=== PATIENT | male | born 1960 | race Caucasian/White ===

== ENCOUNTER 2019-08-10 09:25 | Inpatient (IN) | payer BC ==
[~2019-08-10] VITALS: Ht 167.4 cm; Wt 92.1 kg
[~2019-08-10 09:25] MED LIST: ASP81TEC PO; HYDR1TAB PO; NAPR-243 PO; PNT40TEC PO
[2019-08-10] MEDS ORDERED: CALCIUM CARBONATE 500 MG (TUMS) TAB.CHEW PO PRN (11:00)
[2019-08-10] MEDS ORDERED: ENOXAPARIN 40 MG/0.4 ML (LOVENOX) SYR SC SCH (11:00)
[2019-08-10] MEDS ORDERED: guaiFENesin/CODEINE (ROBITUSSIN AC) 10ML UDC PO PRN (11:00)
[2019-08-10] MEDS ORDERED: ONDANSETRON 4 MG (ZOFRAN) ORAL DISSOLVE TAB PO PRN (11:00)
[2019-08-10] MEDS ORDERED: LOPERAMIDE 2 MG (IMODIUM) TABLET PO PRN (11:00)
[2019-08-10] MEDS ORDERED: ALPRAZolam 0.25 MG (XANAX) TAB PO PRN (11:00)
[2019-08-10] MEDS ORDERED: DOCUSATE SODIUM 100 MG (COLACE) CAP PO PRN (11:00)
[2019-08-10] MEDS ORDERED: FLEET ENEMA ADULT 1 EA BTL PR PRN (11:00)
[2019-08-10] MEDS ORDERED: MELATONIN 3 MG TABLET PO PRN (11:00)
[2019-08-10] MEDS ORDERED: diphenhydrAMINE 25 MG TAB (BENADRYL) PO PRN (11:00)
[2019-08-10] MEDS ORDERED: LACTULOSE SYRUP 10GM/15ML (ENULOSE) 30ML UDC PO PRN (11:00)
[2019-08-10] MEDS ORDERED: polyethylene glycoL POWDER 17 GM (MIRALAX) PACK PO SCH (21:00)
[2019-08-10] MEDS ORDERED: SENNA W/DOCUSATE (SENOKOT S) TABLET PO SCH (21:00)
[2019-08-10] MEDS ORDERED: DOCUSATE SODIUM 100 MG (COLACE) CAP PO SCH (21:00)
[2019-08-13] MEDS ORDERED: ASPI-999 PO (15:54)
[2019-08-13] MEDS ORDERED: OXYC1TAB87 PO (15:54)
[2019-08-13] MEDS ORDERED: GABA-488 PO (15:54)
[2019-08-13] MEDS ORDERED: BACL10TA PO (15:54)
--- NOTE | 2019-08-13 15:55 | NUR ---
ENTERED THE MED REC USING THE DISCHARGE ORDERS FROM [facility]. ON THE DISCHARGE ORDERS IT JUST SHOWED NEW MEDS HE HAD STARTED AT [facility]- IT DIDNT MENTION ANY MEDS THEY WANTED HIM TO CONTINUE AFTER DISCHARGE (MAINTENANCE MEDS ETC) SINCE THE PT WAS NOT HERE YET I CALLED THE PATIENT (MARIUSZ) AND SHE LET ME KNOW HE DIDNT TAKE ANY MAINTENANCE MEDICATION TO HER KNOWLEDGE. AFTER THE MEDS ARE CONTINUED I WILL SPEAK WITH THE PT AND UPDATE THE MED REC AND NOTES NEEDED Addendum: 08/14/19 at 1132 by OSCAR VILLAVICENCIO CPhT SPOKE WITH PT AND WENT THRU THE EXT MED HISTORY TO COMPLETE THE MED REC ALL MEDICATIONS THAT WERE PREVIOUSLY LISTED ON THE MED REC ARE NEW FROM [facility] AND THEY ALL HAVE BEEN REMOVED FROM THE MED REC: PERCOCET 5/325, GABAPENTIN 300MG, BACLOFEN 10MG & ASPIRIN 81MG. THE FOLLOWS MEDS HAVE BEEN ADDED TO THE MED REC DUE TO THE PT TAKING THEM BEFORE HIS [facility] STAY: MELOXICAM 15MG- 1 TAB DAILY PRN ALEVE 220MG- 1 TAB Q 8 H PRN PROTONIX 40MG IS SHOWN ON THE EXT MED HISTORY BUT THE PT SAYS HE QUIT TAKING
--- NOTE | 2019-08-13 16:15 | NUR ---
EMELIA HARRIS admitted to room 228-1, with an admitting diagnosis of REHAB FOR RIGHT TOTAL KNEE REPLACEMENT , on 08/13/19 from [facility] via [facility]/C [facility] CAR, accompanied by STAFF.EMELIA HARRIS introduced to surroundings, call light, bed controls, phone, TV, temperature control, lights, meal times, smoking policy, visitor policy, side rail policy, bathrooms and showers. Patient Rights given to patient in the handbook.EMELIA HARRIS verbalizes understanding that [facility] is not responsible for the loss or damage to any personal effects or valuables that are kept in the patients posession during their hospitalization. The following Patient Care Plans were discussed with the PT: Discharge Planning, PAIN CONTROL,TESTS AND PROCEDURES, and PT/OT THERAPY. EMELIA HARRIS verbalizes understanding of Interdisciplinary Patient Education. Patient and/or family were informed about the Rapid Response Team and its purpose.
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
[2019-08-13 17:14] VITALS: BP 117/76
[2019-08-13 17:15] VITALS: BP 117/76
[2019-08-13] MEDS: BACLOFEN 10 MG (LIORESAL) TAB PO SCH (18:41)
[2019-08-13] MEDS: ENOXAPARIN 40 MG/0.4 ML (LOVENOX) SYR SC SCH (18:41)
[2019-08-13] MEDS: ASPIRIN 81 MG CHEW (CHILDREN'S ASA) PO SCH (21:23)
[2019-08-13] MEDS: GABAPENTIN 300 MG (NEURONTIN) CAP PO SCH (21:23)
[2019-08-13] MEDS: SENNA W/DOCUSATE (SENOKOT S) TABLET PO SCH (21:23)
[2019-08-13] MEDS: oxyCODONE/APAP 5/325MG (PERCOCET 5) TABLET PO PRN (21:24)
[2019-08-13] MEDS: polyethylene glycoL POWDER 17 GM (MIRALAX) PACK PO SCH (23:30)
[2019-08-14 05:28] LABS: BASOPHILS % (AUTO) 0 % (0-10); EOSINOPHILS # (AUTO) 0.1 10^3/uL (0.0-0.3); EOSINOPHILS % (AUTO) 1 % (0-10); HEMATOCRIT 33 % (40-54); LYMPHOCYTES # (AUTO) 1.3 X 10^3 (1.0-4.0); LYMPHOCYTES % (AUTO) 14 % (12-44); MEAN CORPUSCULAR HEMOGLOBIN 33 PG (25-34); MEAN CORPUSCULAR HGB CONC 33 G/DL (32-36); MEAN CORPUSCULAR VOLUME 99 FL (80-99); MEAN PLATELET VOLUME 9.8 FL (7.4-10.4); MONOCYTES # (AUTO) 1.1 X 10^3 (0.0-1.0); MONOCYTES % (AUTO) 12 % (0-12); NEUTROPHILS # (AUTO) 6.9 X 10^3 (1.8-7.8); NEUTROPHILS % (AUTO) 74 % (42-75); PLATELET COUNT 282 10^3/uL (130-400); RED CELL DISTRIBUTION WIDTH 12.5 % (10.0-14.5); WHITE BLOOD COUNT 9.3 10^3/uL (4.3-11.0)
[2019-08-14 05:41] LABS: ALBUMIN 3.3 GM/DL (3.2-4.5); CHLORIDE 100 MMOL/L (98-107); POTASSIUM 4.5 MMOL/L (3.6-5.0); SODIUM 135 MMOL/L (135-145)
[2019-08-14 05:42] LABS: CALCIUM 9.1 MG/DL (8.5-10.1)
[2019-08-14 05:43] LABS: GLUCOSE 97 MG/DL (70-105); TOTAL PROTEIN 6.6 GM/DL (6.4-8.2)
[2019-08-14 05:44] LABS: CARBON DIOXIDE 24 MMOL/L (21-32)
[2019-08-14 05:45] LABS: BILIRUBIN,TOTAL 0.5 MG/DL (0.1-1.0)
[2019-08-14 05:47] LABS: ALKALINE PHOSPHATASE 43 U/L (40-136); CREATININE SERUM 0.76 MG/DL (0.60-1.30); GFR ESTIMATED > 60
[2019-08-14 05:48] LABS: BUN/CREATININE RATIO 21
[2019-08-14 05:50] LABS: ALANINE AMINOTRANSFERASE 33 U/L (0-55)
[2019-08-14 06:00] VITALS: BP 110/72
[2019-08-14 08:36] VITALS: BP 119/75
[2019-08-14] MEDS: BACLOFEN 10 MG (LIORESAL) TAB PO SCH ×3 (08:40→21:43)
[2019-08-14] MEDS: ASPIRIN 81 MG CHEW (CHILDREN'S ASA) PO SCH ×2 (08:40→21:43)
[2019-08-14] MEDS: oxyCODONE/APAP 5/325MG (PERCOCET 5) TABLET PO PRN ×3 (08:41→21:44)
[2019-08-14] MEDS: polyethylene glycoL POWDER 17 GM (MIRALAX) PACK PO SCH ×2 (08:42→21:44)
[2019-08-14] MEDS: SENNA W/DOCUSATE (SENOKOT S) TABLET PO SCH ×3 (08:42→21:43)
--- NOTE | 2019-08-14 10:27 | NUR ---
"RD ASSESSMENT PMHx: GERD; chronic constipation; s/p R TKA PT INTERACTION: Pt was awake and pleasant during nutrition assessment. Pt states current appetite is okay, but it was a little worse prior to admit. Note PO intake of 100% x1meal, per chart review. Pt states following a regular diet at home, and has no issues with chewing/swallowing food. Pt states no recent issues with nausea or vomiting. Pt states having chronic issues with constipation, and that his last BM was 4/6. Note pt currently on bowel regimen of Senna BID; and Miralax BID, per chart review. Pt states no recent wt changes. Note unable to determine recent wt hx, per chart review. ABNORMAL NUTRITION-RELATED LAB VALUES Labs WNL at this time Est. kcal needs: 9984-7026 kcal | 20-25 kcal/kg Est. Pro needs: 93-111 g Pro | 1.0-1.2 g Pro/kg PES STATEMENT: Given current PO intake, no nutrition diagnosis at this time (NO-1.1) INTERVENTION: Continue with current diet order of Regular diet. Will continue to follow and reassess as pt needs, intake, and status change. MONITOR/EVALUATE: PO Intake; Plan of Care; Hydration Status; Weight Status; Lab Values Carol Stack, MS, RD, LD"
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
--- NOTE | 2019-08-14 11:28 | PM&R Progress Note ---
Subjective HPI/CC On Admission Date Seen by Provider: Aug 14, 2019 Time Seen by Provider: 10:30 Subjective/Events-last exam Patient doing better since bed has been changed out Labs reviewed and all stable DVT PPX with ASA and Lovenox since h/o DVT 1989 IT will set up his computer to help him keep up with work Percocet and Baclofen working very well for him Suppository available if needed since he does use those at home also BM 08/13/19 before transported to [facility] Checked meds and labs Reviewed therapy notes Conferred with minister helper of Systems General: Fatigue Musculoskeletal: leg pain Objective Exam Vital Signs Vital Signs Date Time Temp Pulse Resp B/P (MAP) Pulse Ox O2 Delivery O2 Flow Rate FiO2 08/14/19 16:53 36.8 79 16 106/71 (83) 96 Room Air Capillary Refill : Less Than 3 Seconds General Appearance: No Apparent Distress, WD/WN HEENT: PERRL/EOMI, Normal ENT Inspection, Pharynx Normal Neck: Full Range of Motion, Normal Inspection, Non Tender, Supple, Carotid Bruit Respiratory: Chest Non Tender, Lungs Clear, Normal Breath Sounds, No Accessory Muscle Use, No Respiratory Distress Cardiovascular: Regular Rate, Rhythm, No Edema, No Gallop, No JVD, No Murmur, Normal Peripheral Pulses Gastrointestinal: Normal Bowel Sounds, No Organomegaly, No Pulsatile Mass, Non Tender, Soft Back: Normal Inspection, No CVA Tenderness, No Vertebral Tenderness, Decreased Range of Motion Extremity: Normal Capillary Refill, Normal Inspection, Normal Range of Motion (except right leg), Non Tender, No Calf Tenderness, No Pedal Edema Neurologic/Psychiatric: Alert, Oriented x3, Normal Mood/Affect, Motor Weakness (all extremities 4/5, muscle wasting upper extremities) Skin: Normal Color, Warm/Dry Lymphatic: No Adenopathy Results/Procedures Lab Laboratory Tests 08/14/19 05:20 Patient resulted labs reviewed. FIM Transfers Therapy Code Descriptions/Definitions Functional [place] Measure: 0=Not Assessed/NA 4=Minimal Assistance 1=Total Assistance 5=Supervision or Setup 2=Maximal Assistance 6=Modified [place] 3=Moderate Assistance 7=Complete IndependenceSCALE: Activities may be completed with or without assistive devices. 3-Tbiwkxxbbq-hgirapm completes the activity by him/herself with no assistance from a helper. 5-Set-up or Clean-up Assistance-helper sets up or cleans up; patient completes activity. [place] assists only prior to or following the activity. 4-Supervision or Touching Assistance-helper provides verbal cues and/or touching/steadying and/or contact guard assistance as patient completes activity. Assistance may be provided throughout the activity or intermittently. 3-Partial/Moderate Assistance-helper does LESS THAN HALF the effort. [place] lifts, holds or supports trunk or limbs, but provides less than half the effort. 2-Substantial/Maximal Assistance-helper does MORE THAN HALF the effort. [place] lifts or holds trunk or limbs and provides more than half the effort. 0-Feirrnmmc-andvez does ALL the effort. Patient does none of the effort to compl ete the activity. Or, the assistance of 2 or more helpers is required for the patient to complete the activity. If activity was not attempted, code reason: 7-Patient Refused. 9-Not Applicable-not attempted and the patient did not perform the activity before the current illness, exacerbation or injury. 10-Not Attempted due to Environmental Limitations-(lack of equipment, weather restraints, etc.). 88-Not Attempted due to Medical Conditions or Safety Concerns. Assessment/Plan Assessment and Plan Assess & Plan/Chief Complaint Assessment: s/p right total knee replacement POD # 7 h/o DVT Spinal cord injury hx C4-C6 Muscle spasms severe and incapacitating acute on chronic Neurogenic bladder Colon atony GERD Acute hyponatremia DVT PPx with ASA and Lovenox Plan: Lovenox DC Fluid restriction sodium 135 Pain control IRF protocol Bowel and bladder management (1) Status post right knee replacement (2) History of spinal cord injury (3) Muscle spasm (4) Neurogenic bladder (5) Colon atonic (6) Muscle wasting (7) Hyponatremia (8) History of DVT (deep vein thrombosis) (9) DVT prophylaxis (10) Chronic GERD HILARIO FAIRBANKS DO Aug 14, 2019 11:28
[2019-08-14] MEDS ORDERED: MELO15TA39 PO (11:29)
[2019-08-14] MEDS ORDERED: NAPR220C11 PO (11:29)
--- NOTE | 2019-08-14 11:34 | Physical Therapy Evaluation ---
PT Evaluation-General Medical Diagnosis Admission Date Aug 13, 2019 at 16:51 Medical Diagnosis: Right knee replacement Onset Date: Aug 07, 2019 Therapy Diagnosis Therapy Diagnosis: impaired mobility, strength, endurance, balance, ROM Precautions Precautions/Isolations: Fall Prevention, Standard Precautions, Pressure Ulcer Weight Bear Status Right Lower Extremity: Right Weight Bearing/Tolerated Referral Physician: Shannan Hogue DO Reason for Referral: Evaluation/Treatment Medical History Pertinent Medical History: Back Injury Additional Medical History C4-5 fx with fusion, spinal cord injury, spasms, neurogenic bladder, DVT Reviewed History: Yes Social History Home: Single Level Current Living Status: Spouse (grown children at home) Entry Into Home: Stairs With Railing PT Steps Into Home: 3 Prior Prior Level of Function SCALE: Activities may be completed with or without assistive devices. 3-Nseposfiuh-lkvdejc completes the activity by him/herself with no assistance from a helper. 5-Set-up or Clean-up Assistance-helper sets up or cleans up; patient completes activity. Vandiver assists only prior to or following the activity. 4-Supervision or Touching Assistance-helper provides verbal cues and/or touching/steadying and/or contact guard assistance as patient completes activity. Assistance may be provided throughout the activity or intermittently. 3-Partial/Moderate Assistance-helper does LESS THAN HALF the effort. Vandiver lifts, holds or supports trunk or limbs, but provides less than half the effort. 2-Substantial/Maximal Assistance-helper does MORE THAN HALF the effort. [place] lifts or holds trunk or limbs and provides more than half the effort. 6-Pmhrgothm-fubxhm does ALL the effort. Patient does none of the effort to complete the activity. Or, the assistance of 2 or more helpers is required for the patient to complete the activity. If activity was not attempted, code reason: 7-Patient Refused. 9-Not Applicable-not attempted and the patient did not perform the activity before the current illness, exacerbation or injury. 10-Not Attempted due to Environmental Limitations-(lack of equipment, weather restraints, etc.). 88-Not Attempted due to Medical Conditions or Safety Concerns. Bed Mobility: 6 Transfers (B,C,W/C): 6 Gait: 6 Indoor Mobility (Ambulation): Independent Patient states he was using a SPC previously. PT Evaluation-Current Subjective Patient in bed pre tx, agrees to PT, has 5/10 pain in right knee and hamstring. Patient has been having significant painful hamstring spasms. Pt/Family Goals to be independent at home Objective Patient Orientation: Person, Place, Situation right knee immobilizer for comfort and to control hamstring spasms. ROM/Strength ROM Lower Extremities right knee flexion 80 degrees, extension +20 degrees Sensory Vision: Wears Glasses Hearing: Functional Sensation Right Lower Extremit: Intact Sensation Left Lower Extremity: Intact Transfers Roll Left to Right (QC): 3 Sit to Lying (QC): 3 Lying to Sitting/Side of Bed(Q: 3 Sit to Stand (QC): 2 Chair/Azf-xi-Iwlvr Xfer(QC): 4 Toilet Transfer (QC): 2 Car Transfer (QC): 2 Patient performs bed mobility with min assist, supine to sit with mod assist, sit to supine with min assist, sit to stand max assist, transfers CGA, car transfer max assist. Patient can perform sit to stand with CGA or min assist from a significantly elevated surface, but cannot help much from lower surfaces. Gait Does the Patient Walk?: Yes Mode of Locomotion: Walk Anticipated Mode of Locomotion: Walk Walk 10 feet (QC): 4 Walk 50 ft with 2 Turns(QC): 88 Walk 150 ft (QC): 88 Walking 10ft/uneven surface-QC: 88 Distance: 30' Gait Assistive Device: FWW Comments/Gait Description Patient ambulated 30' with a rolling walker with CGA. He slides both feet across the floor, has right foot drop, bilateral flexed knees, very narrow MIGUELITO. Wheelchair Training Does the Pt Use a Wheelchair?: Yes Distance: 100' Wheel 50 ft with 2 turns (QC): 4 Wheel 150 ft (QC): 88 Type of Wheelchair: Manual Stairs 1 Step (curb) (QC): 88 4 Steps (QC): 88 12 Steps (QC): 88 Balance Sitting Static: Fair Sitting Dynamic: Fair Standing Static: Poor Standing Dynamic: Poor Picking up an Object (QC): 88 Special Test Comments Patient is a little light headed immediately upon sitting from laying down but it passes quickly, he is slightly unsteady just sitting at the edge of bed and needs come careful adjusting and positioning to get into a stable position. Treatment RLE TKA protocol (with brace off) x10 (QS, HS, SAQ, SLR), also performed RLE LAQ for 5 min Assessment/Needs Patient has impaired mobility, strength, endurance, balance, ROM. He has impaired sitting and standing balance and needs extra positioning to maintain safety. Patient in WC at bedside post tx, has OT right after PT, has nurse call. Rehab Potential: Fair PT Short Term Goals Short Term Goals Time Frame: Aug 21, 2019 Roll Left & Right: 4 Sit to lyin Lying to sitting on side of be: 3 Sit to stand: 3 Chair/kjb-jc-ajupv transfer: 4 Walk 10 feet: 4 Walk 50 feet with two turns: 4 PT Residential Goals Theatre Arts Professor Goals PT Residential Goals Time Frame: Sep 04, 2019 Roll Left & Right (QC): 4 (SBA) Sit to Lying (QC): 4 (SBA) Lying-Sitting on Side/Bed(QC): 4 (SBA) Sit to Stand (QC): 3 (Cindy) Chair/Kew-it-Padwo Xfer(QC): 4 (SBA) Toilet Transfer (QC): 3 (Cindy) Car Transfer (QC): 3 (Cindy) Does the Patient Walk: Yes Walk 10 feet (QC): 4 (SBA) Walk 50ft with 2 Turns (QC): 4 (SBA) Walk 150 ft (QC): 4 (SBA) Walking 10ft on Uneven Surface: 88 1 Step (curb) (QC): 88 4 Steps (QC): 88 12 Steps (QC): 88 Picking up an Object (QC): 88 Does the Pt use WC or Scooter?: Yes Wheel 50 feet with 2 turns (QC: 6 Type: Manual Wheel 150 feet: 6 Type: Manual PT Plan Problem List Problem List: Activity Tolerance, Functional Strength, Safety, Balance, Gait, Transfer, Bed Mobility, ROM Treatment/Plan Treatment Plan: Continue Plan of Care Treatment Plan: Bed Mobility, Education, Functional Activity Herman, Functional Strength, Group Therapy, Gait, Safety, Therapeutic Exercise, Transfers Treatment Duration: Sep 04, 2019 Frequency: At least 5 of 7 days/Wk (IRF) Estimated Hrs Per Day: 1.5 hours per day Patient and/or Family Agrees t: Yes Safety Risks/Education Patient Education: Gait Training, Transfer Techniques, Correct Positioning, W/C Management, Safety Issues Teaching Recipient: Patient Teaching Methods: Demonstration, Discussion Response to Teaching: Reinforcement Needed Discharge Recommendations Plan Patient will perform bed mobility and transfer training, balance and endurance training, functional strengthening, stair training, gait training, and education, to improve functional mobility and independence at home. Therapy Discharge Recommendati: Home & Family Time/GCodes Time In: 0900 Time Out: 1000 Total Billed Treatment Time: 60 Total Billed Treatment 1 visit EVM 30' FA 15' EX 15' OFELIA BURCIAGA PT Aug 14, 2019 11:34
--- NOTE | 2019-08-14 14:02 | Physical Therapy Daily Note ---
PT Daily Note-Current Subjective Patient in bed pre tx, agrees to PT, has 6-7/10 pain, states he will take pain meds when done with PT. Appearance Patient in recliner post tx with nurse call, phone, tray, all needs met. Mental Status Patient Orientation: Normal For Age Transfers SCALE: Activities may be completed with or without assistive devices. 7-Gmbissjahj-plpryai completes the activity by him/herself with no assistance from a helper. 5-Set-up or Clean-up Assistance-helper sets up or cleans up; patient completes activity. [place] assists only prior to or following the activity. 4-Supervision or Touching Assistance-helper provides verbal cues and/or touching/steadying and/or contact guard assistance as patient completes activity. Assistance may be provided throughout the activity or intermittently. 3-Partial/Moderate Assistance-helper does LESS THAN HALF the effort. [place] lifts, holds or supports trunk or limbs, but provides less than half the effort. 2-Substantial/Maximal Assistance-helper does MORE THAN HALF the effort. [place] lifts or holds trunk or limbs and provides more than half the effort. 6-Qvkqhxiwm-hiltsg does ALL the effort. Patient does none of the effort to complete the activity. Or, the assistance of 2 or more helpers is required for the patient to complete the activity. If activity was not attempted, code reason: 7-Patient Refused. 9-Not Applicable-not attempted and the patient did not perform the activity before the current illness, exacerbation or injury. 10-Not Attempted due to Environmental Limitations-(lack of equipment, weather restraints, etc.). 88-Not Attempted due to Medical Conditions or Safety Concerns. Roll Left & Right (QC): 3 Lying to Sitting/Side of Bed(Q: 3 Sit to Stand (QC): 3 Chair/Mtx-yl-Qpaun Xfer(QC): 3 Weight Bearing Right Lower Extremity: Right Weight Bearing/Tolerated Gait Training Distance: 30' Walk 10 feet (QC): 4 Gait Persons Needed: 1 Gait Assistive Device: FWW CGA, slides both feet across the floor, very slow, narrow MIGUELITO Wheelchair Training Does the Pt Use a Wheelchair?: Yes Wheel 50 ft with 2 turns (QC): 4 Wheel 150 ft (QC): 4 Type of Wheelchair: Manual 150'x2 Exercises Standing: Hip Abduction, Heel/toe raises, 3 way Ex=Flex, Abd, Ext (only flexion) Standing Reps: 10 Treatments bed mobility and transfers, ambulation, LE exercise, WC mobility Assessment Current Status: Fair Progress improved sit to stand, still mod assist but slightly less than this morning PT Short Term Goals Short Term Goals Time Frame: Aug 21, 2019 Roll Left & Right: 4 Sit to lyin Lying to sitting on side of be: 3 Sit to stand: 3 Chair/ter-ux-mxnry transfer: 4 Walk 10 feet: 4 Walk 50 feet with two turns: 4 PT Snuff Maker Goals Snuff Maker Goals PT Shelter Goals Time Frame: Sep 04, 2019 Roll Left & Right (QC): 4 (SBA) Sit to Lying (QC): 4 (SBA) Lying-Sitting on Side/Bed(QC): 4 (SBA) Sit to Stand (QC): 3 (Cindy) Chair/Sgw-ad-Ulgmg Xfer(QC): 4 (SBA) Toilet Transfer (QC): 3 (Cindy) Car Transfer (QC): 3 (Cindy) Does the Patient Walk: Yes Walk 10 feet (QC): 4 (SBA) Walk 50ft with 2 Turns (QC): 4 (SBA) Walk 150 ft (QC): 4 (SBA) Walking 10ft on Uneven Surface: 88 1 Step (curb) (QC): 88 4 Steps (QC): 88 12 Steps (QC): 88 Picking up an Object (QC): 88 Does the Pt use WC or Scooter?: Yes Wheel 50 feet with 2 turns (QC: 6 Type: Manual Wheel 150 feet: 6 Type: Manual PT Plan Problem List Problem List: Activity Tolerance, Functional Strength, Safety, Balance, Gait, Transfer, Bed Mobility, ROM Treatment/Plan Treatment Plan: Continue Plan of Care Treatment Plan: Bed Mobility, Education, Functional Activity Herman, Functional Strength, Group Therapy, Gait, Safety, Therapeutic Exercise, Transfers Treatment Duration: Sep 04, 2019 Frequency: At least 5 of 7 days/Wk (IRF) Estimated Hrs Per Day: 1.5 hours per day Patient and/or Family Agrees t: Yes Safety Risks/Education Patient Education: Gait Training, Transfer Techniques, Correct Positioning, W/C Management, Safety Issues Teaching Recipient: Patient Teaching Methods: Demonstration, Discussion Response to Teaching: Reinforcement Needed Time/GCodes Time In: 1330 Time Out: 1400 Total Billed Treatment Time: 30 Total Billed Treatment 1 visit FA 20' [facility] 10' OFELIA BURCIAGA PT Aug 14, 2019 14:02
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
[2019-08-14 16:53] VITALS: BP 106/71
[2019-08-14] MEDS ORDERED: diphenhydrAMINE 2% 30 GM CR (ALLERGY CREAM) TOP PRN (17:30)
--- NOTE | 2019-08-14 17:49 | NUR ---
Pt reported some itchiness on his upper back, states that he noticed it a few days before he left [place]. Noted scattered, red, pimply like areas, notified Dr. Hogue, & rec'd new orders for Benadryl cream, see EMAR.
[2019-08-14] MEDS: ENOXAPARIN 40 MG/0.4 ML (LOVENOX) SYR SC SCH (18:09)
--- NOTE | 2019-08-14 19:43 | Individualized Plan of Care ---
Individualized Plan of Care Rehab Nursing IPOC Order Admission Date Aug 13, 2019 at 16:51 Current Orders Orders Admission Order(Inpt,Obs,Sdc) (08/10/19 10:58) Vital Signs: Per Unit Policy ( 08,16,00 (08/10/19 10:58) Lucas Cavanaugh (08/10/19 10:58) Sequential Compression Device Q4H (08/10/19 10:58) Rail Equipment Operator-Inpt Rehab Con (08/10/19 10:58) Rehab Nursing Orders-Ipoc (08/10/19 10:58) Physical Therapy Rehab Orders (08/10/19 10:58) Occupational Therapy Rehab Ord (08/10/19 10:58) Speech Therapy Rehab Orders (08/10/19 10:58) General/Regular (08/10/19 Dinner) Precautions (Aru) (08/10/19 10:58) Rehab-Intensity Of Therapy (08/10/19 10:58) Initiate Admission Nursing Pro .admission (08/10/19 10:58) Alprazolam Tablet (Xanax Tablet) (08/10/19 11:00) Calcium Carbonate Chew Tablet (Antacid C (08/10/19 11:00) Diphenhydramine Tablet (Benadryl Tablet) (08/10/19 11:00) Docusate Sodium Capsule (Colace Capsule) (08/10/19 21:00) Docusate Sodium Capsule (Colace Capsule) (08/10/19 11:00) Bisacodyl Suppository (Dulcolax Supposit (08/10/19 11:00) Lactulose Oral Solution (Enulose Oral So (08/10/19 11:00) Na Phos/Na Biphos Enema (Fleet Enema Jerry (08/10/19 11:00) Guaifenesin/Codeine Syrup (Robitussin Ac (08/10/19 11:00) Loperamide Tablet (Imodium Tablet) (08/10/19 11:00) Enoxaparin Injection (Lovenox Injection) (08/10/19 11:00) Melatonin Tablet (Melatonin Tablet) (08/10/19 11:00) Polyethylene Glycol Powder Pkt (Miralax (08/10/19 21:00) Ondansetron Oral Dissolve Tab (Zofran (08/10/19 11:00) Senna S Tablet (Senokot S Tablet) (08/10/19 21:00) Code/Resuscitation (08/10/19 10:58) Cbc With Automated Diff (08/14/19 06:00) Comprehensive Metabolic Panel (08/14/19 06:00) Iron Test (Fe) (08/14/19 06:00) Aspirin Chewable Tablet (Baby Aspirin Ch (08/13/19 21:00) Baclofen Tablet (Lioresal Tablet) (08/13/19 21:00) Gabapentin Capsule/Tablet (Neurontin Cap (08/13/19 21:00) Oxycodone/Apap 5/325mg Tablet (Percocet (08/13/19 17:45) Polyethylene Glycol Powder Pkt (Miralax (08/13/19 21:00) Senna S Tablet (Senokot S Tablet) (08/13/19 21:00) Ambulate 08,12,20 (08/13/19 17:45) Sequential Compression Device Q4H (08/13/19 17:45) Dvt/Vte Risk - Notifiy Physici Q4H (08/13/19 17:45) Enoxaparin Injection (Lovenox Injection) (08/13/19 18:00) Rt Request For Service (08/13/19 19:23) Patient Visit (08/14/19 ) Speech Sound Lang Comp (08/14/19 ) Patient Visit (08/14/19 ) Pt Eval Moderate Complexity (08/14/19 ) Functional Activities, Ea 15 (08/14/19 ) Exercise Therap, Ea 15 Min (08/14/19 ) Wheelchair Mgmt/Propulsn 15min (08/14/19 ) Diphenhydramine 2% Cream (Benadryl 2% Cr (08/14/19 17:30) Patient Visit (08/15/19 ) Exercise Therap, Ea 15 Min (08/15/19 ) Gait Training, Ea 15 Min (08/15/19 ) Functional Activities, Ea 15 (08/15/19 ) Aspirin Chewable Tablet (Baby Aspirin Ch (08/16/19 09:00) Patient Visit (08/15/19 ) Gait Training, Ea 15 Min (08/15/19 ) Wheelchair Mgmt/Propulsn 15min (08/15/19 ) Rehab Nursing Orders: Ongoing Assess. of Cognitive Status, Ongoing Assess. of Function Status, Bladder Management, Bladder Scan, Bladder Training, Bowel Management, Bowel Training, Disease Management & Educaiton, DVT Prophylaxis, Fall Prevention, Fluid/Electrolyte/Nutrition Mgmt, Infection Prevention, Medication Management & Education, Management of Risks & Complications, Management of Skin Intergrity, Nutrition Management, Pain Management, Patient/Family Support, Safety Management, Swallow Precautions, Weight Bearing Precaution Intensity of Therapy to be met Patient to be seen: Min.3h per day/5 of 7d PT IPOC Problem List: Activity Tolerance, Functional Strength, Safety, Balance, Gait, Transfer, Bed Mobility, ROM Treatment Plan: Continue Plan of Care Bed Mobility, Education, Functional Activity Herman, Functional Strength, Group Therapy, Gait, Safety, Therapeutic Exercise, Transfers Treatment Duration: Sep 04, 2019 Frequency: At least 5 of 7 days/Wk (IRF) Estimated Hrs Per Day: 1.5 hours per day OT IPOC Problems: Decreased Activ Tolerance, Dependent Transfers, Impaired Bed Mobility, Impaired Funct Balance, Impaired I ADL's, Impaired Self-Care Skills OT Treatment, Training and Edu: Yes Plan of Care: ADL Retraining, Functional Mobility, Group Exercise/Act as Ind, UE Funct Exercise/Act Treatment Duration: Aug 28, 2019 Frequency: At least 5 of 7 days/Wk (IRF) Estimated Hrs Per Day: 1.[address] IPOC Speech Therapy Treatment Plan: Discontinue ST Treatment Duration: Aug 14, 2019 Frequency: 1 time per week Estimated Hrs Per Day: .25 hour per day Rail Equipment Operator/Case Mgmt Rail Equipment Operator/Case Managemen: Discharge Planning Dietitian/Environmental Studies Faculty Member Dietitian/Environmental Studies Faculty Member to monitor nutritional status and make changes and/or recommendations as needed and work with speech pathology on dietary upgrades as the occur. 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 Medical Prognosis: Good Anticipated Length of Stay: 7 days HILARIO FAIRBANKS DO Aug 14, 2019 19:43
[2019-08-14] MEDS: GABAPENTIN 300 MG (NEURONTIN) CAP PO SCH (21:43)
[2019-08-15 06:00] VITALS: BP 122/79
--- NOTE | 2019-08-15 09:14 | Physical Therapy Daily Note ---
PT Daily Note-Current Subjective /Patient in bed pre tx, agrees to PT, has 3/10 pain in right knee. Appearance Patient in recliner post tx with nurse call, phone, tray, all needs met. Mental Status Patient Orientation: Person, Place, Situation, Normal For Age Transfers SCALE: Activities may be completed with or without assistive devices. 2-Cezfqxmpzc-bfwvdfp completes the activity by him/herself with no assistance from a helper. 5-Set-up or Clean-up Assistance-helper sets up or cleans up; patient completes activity. [place] assists only prior to or following the activity. 4-Supervision or Touching Assistance-helper provides verbal cues and/or touching/steadying and/or contact guard assistance as patient completes activity. Assistance may be provided throughout the activity or intermittently. 3-Partial/Moderate Assistance-helper does LESS THAN HALF the effort. [place] lifts, holds or supports trunk or limbs, but provides less than half the effort. 2-Substantial/Maximal Assistance-helper does MORE THAN HALF the effort. [place] lifts or holds trunk or limbs and provides more than half the effort. 5-Krakfrzch-zmioft does ALL the effort. Patient does none of the effort to complete the activity. Or, the assistance of 2 or more helpers is required for the patient to complete the activity. If activity was not attempted, code reason: 7-Patient Refused. 9-Not Applicable-not attempted and the patient did not perform the activity before the current illness, exacerbation or injury. 10-Not Attempted due to Environmental Limitations-(lack of equipment, weather restraints, etc.). 88-Not Attempted due to Medical Conditions or Safety Concerns. Roll Left & Right (QC): 4 Sit to Lying (QC): 3 Lying to Sitting/Side of Bed(Q: 3 Sit to Stand (QC): 3 Chair/Otk-qc-Xveja Xfer(QC): 4 Weight Bearing Right Lower Extremity: Right Weight Bearing/Tolerated Gait Training Distance: 30', 20'x2 Walk 10 feet (QC): 4 Gait Persons Needed: 1 Gait Assistive Device: FWW CGA, poor heel strike on the right side, very slow, slides feet across the floor, no foot clearance, narrow MIGUEL[place]O Wheelchair Training Does the Pt Use a Wheelchair?: Yes Wheel 50 ft with 2 turns (QC): 6 Wheel 150 ft (QC): 6 Type of Wheelchair: Manual Exercises Supine Ex: Quad Set, Heel Slides, Short Arc Quads, Straight leg raise Supine Reps: 10 5 min knee extension stretch NuStep Minutes: 15 NuStep Workload: 3 Treatments bed mobility and transfers, ambulation, WC mobility, LE exercise and stretching Assessment Current Status: Fair Progress improving ambulation, patient had some hamstring spasms but was able to ambulate without using the knee extension brace PT Short Term Goals Short Term Goals Time Frame: Aug 21, 2019 Roll Left & Right: 4 Sit to lyin Lying to sitting on side of be: 3 Sit to stand: 3 Chair/uim-xp-lftgu transfer: 4 Walk 10 feet: 4 Walk 50 feet with two turns: 4 PT Education Paraprofessional Goals Education Paraprofessional Goals PT Education Paraprofessional Goals Time Frame: Sep 04, 2019 Roll Left & Right (QC): 4 (SBA) Sit to Lying (QC): 4 (SBA) Lying-Sitting on Side/Bed(QC): 4 (SBA) Sit to Stand (QC): 3 (Cindy) Chair/Gkz-sf-Ielon Xfer(QC): 4 (SBA) Toilet Transfer (QC): 3 (Cindy) Car Transfer (QC): 3 (Cindy) Does the Patient Walk: Yes Walk 10 feet (QC): 4 (SBA) Walk 50ft with 2 Turns (QC): 4 (SBA) Walk 150 ft (QC): 4 (SBA) Walking 10ft on Uneven Surface: 88 1 Step (curb) (QC): 88 4 Steps (QC): 88 12 Steps (QC): 88 Picking up an Object (QC): 88 Does the Pt use WC or Scooter?: Yes Wheel 50 feet with 2 turns (QC: 6 Type: Manual Wheel 150 feet: 6 Type: Manual PT Plan Problem List Problem List: Activity Tolerance, Functional Strength, Safety, Balance, Gait, Transfer, Bed Mobility, ROM Treatment/Plan Treatment Plan: Continue Plan of Care Treatment Plan: Bed Mobility, Education, Functional Activity Herman, Functional Strength, Group Therapy, Gait, Safety, Therapeutic Exercise, Transfers Treatment Duration: Sep 04, 2019 Frequency: At least 5 of 7 days/Wk (IRF) Estimated Hrs Per Day: 1.5 hours per day Patient and/or Family Agrees t: Yes Safety Risks/Education Patient Education: Gait Training, Transfer Techniques, Correct Positioning, W/C Management, Safety Issues Teaching Recipient: Patient Teaching Methods: Demonstration, Discussion Response to Teaching: Reinforcement Needed Time/GCodes Time In: 814 Time Out: 914 Total Billed Treatment Time: 60 Total Billed Treatment 1 visit GT 20' EX 25' FA 15' OFELIA BURCIAGA PT Aug 15, 2019 09:13
[2019-08-15] MEDS: SENNA W/DOCUSATE (SENOKOT S) TABLET PO SCH ×2 (09:22→20:12)
[2019-08-15] MEDS: polyethylene glycoL POWDER 17 GM (MIRALAX) PACK PO SCH ×2 (09:22→20:13)
[2019-08-15] MEDS: ASPIRIN 81 MG CHEW (CHILDREN'S ASA) PO SCH (09:22)
[2019-08-15] MEDS: BACLOFEN 10 MG (LIORESAL) TAB PO SCH ×3 (09:22→20:13)
[2019-08-15] MEDS: oxyCODONE/APAP 5/325MG (PERCOCET 5) TABLET PO PRN ×2 (10:30→18:56)
--- NOTE | 2019-08-15 11:47 | Occupational Ther Daily Note ---
OT Current Status-Daily Note Subjective Pt. reported 7/10 pain in knee. Nursing administers pain medication. Appearance Pt. up in chair when OT entered room. Agrees to work with OT. Mental Status/Objective Patient Orientation: Person, Place, Time, Situation ADL-Treatment Therapy Code Descriptions/Definitions Functional [place] Measure: 0=Not Assessed/NA 4=Minimal Assistance 1=Total Assistance 5=Supervision or Setup 2=Maximal Assistance 6=Modified [place] 3=Moderate Assistance 7=Complete IndependenceSCALE: Activities may be completed with or without assistive devices. 0-Nmswgoosei-leyrvxw completes the activity by him/herself with no assistance from a helper. 5-Set-up or Clean-up Assistance-helper sets up or cleans up; patient completes activity. [place] assists only prior to or following the activity. 4-Supervision or Touching Assistance-helper provides verbal cues and/or touching/steadying and/or contact guard assistance as patient completes activity. Assistance may be provided throughout the activity or intermittently. 3-Partial/Moderate Assistance-helper does LESS THAN HALF the effort. [place] lifts, holds or supports trunk or limbs, but provides less than half the effort. 2-Substantial/Maximal Assistance-helper does MORE THAN HALF the effort. [place] lifts or holds trunk or limbs and provides more than half the effort. 0-Bcryjzogi-ytkfou does ALL the effort. Patient does none of the effort to complete the activity. Or, the assistance of 2 or more helpers is required for the patient to complete the activity. If activity was not attempted, code reason: 7-Patient Refused. 9-Not Applicable-not attempted and the patient did not perform the activity before the current illness, exacerbation or injury. 10-Not Attempted due to Environmental Limitations-(lack of equipment, weather restraints, etc.). 88-Not Attempted due to Medical Conditions or Safety Concerns. Oral Hygiene (QC): 5 Shower/Bathe Self (QC): 4 (CGA on shower bench for dymnamic movements.) Upper Body Dressing (QC): 4 Lower Body Dressing (QC): 1 (Pt. able to thread shorts with AE while seated with mod assist. Attempted to pull up pants while seated, with leaning side to side. Unable to do so. Required max assist for sit to stand of one person wh ile another pulls pants over hips.) On/Off Footwear: 4 (SBA with sock aide for slipper socks.) Toileting Hygiene (QC): 7 Toilet Transfer (QC): 7 Pt. was taken to large shower room. Transferred to tub bench from walker using slide board. Pt. required mod assist with this. Once on tub bench, able to lean side to side to pull down and doff shorts. Pt. able to doff slipper socks with DS. Requires SBA to shower and able to cleanse all parts by leaning side to side. After dressing tasks, pt. stood with max assist with OT in front, and pivoted to wheelchair, as he was unable to fully get up using walker. Pt. self propelled to therapy gym and completed 10 minutes on arm bike at mod resistance for continued UE strength. Talked with pt. regarding home set up. Pt. states that he will be contacting his employer, ([employer]), to see if someone can build a ramp at his home. Pt. will also need a BSC, wheelchair, and tub bench. Pt. propelled back to room and attempted x2 to stand from chair with walker. On first attempt pt. unable to fully extend knees and had to sit back down. Rested and stood again with max assist, with assist of another person behind to transfer to chair. All needs met. Education OT Patient Education: Correct positioning, Exercise program, Modified ADL techniques, Progress toward Goal/Update tx plan, Purpose of tx/functional activities, Reviewed precautions, Rehab process, Transfer techniques, W/C man agement Teaching Recipient: Patient Teaching Methods: Demonstration, Discussion Response to Teaching: Verbalize Understanding, Return Demonstration OT Short Term Goals Short Term Goals Time Frame: Aug 21, 2019 Eatin Oral hygiene: 6 Toileting hygiene: 4 Shower/bathe self: 4 Upper body dressin Lower body dressin Putting on/taking off footwear: 3 OT Retirement Goals Retirement Goals Time Frame: Aug 28, 2019 Eating (QC): 6 Oral Hygiene (QC): 6 Toileting Hygiene (QC): 6 Shower/Bathe Self (QC): 5 Upper Body Dressing (QC): 6 Lower Body Dressing (QC): 6 On/Off Footwear (QC): 6 Additional Goals: 1-Demonstrate ADL Tasks, 2-Verbalize Understanding, 3-Improv eStrength/Herman 1=Demonstrate adherence to instructed precautions during ADL tasks. 2=Patient will verbalize/demonstrate understanding of assistive devices/modifications for ADL. 3=Patient will improve strength/tolerance for activity to enable patient to p erform ADL's. OT Education/Plan Problem List/Assessment Assessment: Decreased Activ Tolerance, Decreased UE Strength, Dependent Transfers, Impaired Coordination, Impaired Funct Balance, Impaired I ADL's, Impaired Self-Care Skills Discharge Recommendations Plan/Recommendations: Continue POC Therapy Discharge Recommendati: Home & Family, Post Acute OT Equpiment Recommendations-D/C: Extended Bath Bench, Toilet Riser with Rails, Hip Kit Treatment Plan/Plan of Care Treatment,Training & Education: Yes Patient would benefit from OT for education, treatment and training to promote independence in ADL's, mobility, safety and/or upper extremity function for ADL's. Plan of Care: ADL Retraining, Functional Mobility, Group Exercise/Act as Ind, UE Funct Exercise/Act Treatment Duration: Aug 28, 2019 Frequency: At least 5 of 7 days/Wk (IRF) Estimated Hrs Per Day: 1.5 hours per day Agreement: Yes Rehab Potential: Good Time/GCodes Start Time: 10:15 Stop Time: 11:45 Total Time Billed (hr/min): 90 Billed Treatment Time 1, ADL x 60minutes, FA x 15minutes, Ex x 15minutes GHAZALA COSTA OT Aug 15, 2019 11:47
--- NOTE | 2019-08-15 12:29 | PM&R Progress Note ---
Subjective HPI/CC On Admission Date Seen by Provider: Aug 15, 2019 Time Seen by Provider: 11:00 Subjective/Events-last exam Patient doing better each day Has ramp being built by [employer] in prep for DC home and may need a wheelchair Labs reviewed and all stable DVT PPX with ASA and Lovenox since h/o DVT 1989 IT will set up his computer to help him keep up with work Percocet and Baclofen working very well for him Suppository available if needed since he does use those at home also BM 08/13/19 before transported to [facility] Checked meds and labs Reviewed therapy notes Conferred with wool buyer of Systems General: Fatigue Musculoskeletal: leg pain Neurological: Weakness, Numbness, Incoordination Objective Exam Vital Signs Vital Signs Date Time Temp Pulse Resp B/P (MAP) Pulse Ox O2 Delivery O2 Flow Rate FiO2 08/15/19 17:51 36.5 59 16 120/73 (89) 94 Room Air Capillary Refill : Less Than 3 SecondsLess Than 3 Seconds General Appearance: No Apparent Distress, WD/WN HEENT: PERRL/EOMI, Normal ENT Inspection, Pharynx Normal Neck: Full Range of Motion, Normal Inspection, Non Tender, Supple, Carotid Bruit Respiratory: Chest Non Tender, Lungs Clear, Normal Breath Sounds, No Accessory Muscle Use, No Respiratory Distress Cardiovascular: Regular Rate, Rhythm, No Edema, No Gallop, No JVD, No Murmur, Normal Peripheral Pulses Gastrointestinal: Normal Bowel Sounds, No Organomegaly, No Pulsatile Mass, Non Tender, Soft Back: Normal Inspection, No CVA Tenderness, No Vertebral Tenderness, Decreased Range of Motion Extremity: Normal Capillary Refill, Normal Inspection, Normal Range of Motion (except right leg), Non Tender, No Calf Tenderness, No Pedal Edema Neurologic/Psychiatric: Alert, Oriented x3, Normal Mood/Affect, Motor Weakness (all extremities 4/5, muscle wasting upper extremities) Skin: Normal Color, Warm/Dry Lymphatic: No Adenopathy Results/Procedures Lab Patient resulted labs reviewed. FIM Transfers Therapy Code Descriptions/Definitions Functional [place] Measure: 0=Not Assessed/NA 4=Minimal Assistance 1=Total Assistance 5=Supervision or Setup 2=Maximal Assistance 6=Modified [place] 3=Moderate Assistance 7=Complete IndependenceSCALE: Activities may be completed with or without assistive devices. 0-Slaokrrtec-cjjaufx completes the activity by him/herself with no assistance from a helper. 5-Set-up or Clean-up Assistance-helper sets up or cleans up; patient completes activity. [place] assists only prior to or following the activity. 4-Supervision or Touching Assistance-helper provides verbal cues and/or touching/steadying and/or contact guard assistance as patient completes activity. Assistance may be provided throughout the activity or intermittently. 3-Partial/Moderate Assistance-helper does LESS THAN HALF the effort. [place] lifts, holds or supports trunk or limbs, but provides less than half the effort. 2-Substantial/Maximal Assistance-helper does MORE THAN HALF the effort. [place] lifts or holds trunk or limbs and provides more than half the effort. 2-Pjkkpfyfl-lcvhfp does ALL the effort. Patient does none of the effort to complete the activity. Or, the assistance of 2 or more helpers is required for the patient to complete the activity. If activity was not attempted, code reason: 7-Patient Refused. 9-Not Applicable-not attempted and the patient did not perform the activity b efore the current illness, exacerbation or injury. 10-Not Attempted due to Environmental Limitations-(lack of equipment, weather restraints, etc.). 88-Not Attempted due to Medical Conditions or Safety Concerns. Roll Left to Right (QC): 4 Sit to Lying (QC): 3 Sit to Stand (QC): 3 Chair/Pkn-vt-Ptapg Xfer(QC): 4 Car Transfer (QC): 2 Gait Training Does the Patient Walk?: Yes Distance: 30', 20'x2 Walk 10 feet (QC): 4 Walk 50 ft with 2 Turns(QC): 88 Walk 150 ft (QC): 88 Walking 10ft/uneven surface-QC: 88 Gait Persons Needed: 1 Gait Assistive Device: FWW Wheelchair Training Does the Pt Use a Wheelchair?: Yes Distance: 100' Wheel 50 ft with 2 turns (QC): 6 Wheel 150 ft (QC): 6 Type of Wheelchair: Manual Stair Training 1 Step (curb) (QC): 88 4 Steps (QC): 88 12 Steps (QC): 88 Balance Picking up an Object (QC): 88 ADL-Treatment Eating (QC): 6 Oral Hygiene (QC): 5 Shower/Bathe Self (QC): 4 (CGA on shower bench for dymnamic movements.) Upper Body Dressing (QC): 4 Lower Body Dressing (QC): 1 (Pt. able to thread shorts with AE while seated with mod assist. Attempted to pull up pants while seated, with leaning side to side. Unable to do so. Required max assist for sit to stand of one person while another pulls pants over hips.) On/Off Footwear (QC): 4 (SBA with sock aide for slipper socks.) Toileting Hygiene (QC): 7 Toilet Transfer (QC): 7 Assessment/Plan Assessment and Plan Assess & Plan/Chief Complaint Assessment: s/p right total knee replacement POD # 8 h/o DVT Spinal cord injury hx C4-C6 Muscle spasms severe and incapacitating acute on chronic Neurogenic bladder Colon atony GERD Acute hyponatremia DVT PPx with ASA and Lovenox Plan: Lovenox DC Fluid restriction sodium 135 Pain control IRF protocol Bowel and bladder management (1) Status post right knee replacement (2) History of spinal cord injury (3) Muscle spasm (4) Neurogenic bladder (5) Colon atonic (6) Muscle wasting (7) Hyponatremia (8) History of DVT (deep vein thrombosis) (9) DVT prophylaxis (10) Chronic GERD HILARIO FAIRBANKS DO Aug 15, 2019 12:29
--- NOTE | 2019-08-15 13:26 | Physical Therapy Daily Note ---
PT Daily Note-Current Subjective Patient in recliner pre tx, agrees to PT, voices no complaints of pain but states he is very tired. Appearance Patient in bed post tx with nurse call, phone, tray, all needs met. Mental Status Patient Orientation: Person, Place, Situation Transfers SCALE: Activities may be completed with or without assistive devices. 6-Fpvheudylm-lvsdsll completes the activity by him/herself with no assistance from a helper. 5-Set-up or Clean-up Assistance-helper sets up or cleans up; patient completes activity. [place] assists only prior to or following the activity. 4-Supervision or Touching Assistance-helper provides verbal cues and/or touching/steadying and/or contact guard assistance as patient completes activity. Assistance may be provided throughout the activity or intermittently. 3-Partial/Moderate Assistance-helper does LESS THAN HALF the effort. [place] lifts, holds or supports trunk or limbs, but provides less than half the effort. 2-Substantial/Maximal Assistance-helper does MORE THAN HALF the effort. [place] lifts or holds trunk or limbs and provides more than half the effort. 2-Nebhutrjo-fjgwod does ALL the effort. Patient does none of the effort to complete the activity. Or, the assistance of 2 or more helpers is required for the patient to complete the activity. If activity was not attempted, code reason: 7-Patient Refused. 9-Not Applicable-not attempted and the patient did not perform the activity before the current illness, exacerbation or injury. 10-Not Attempted due to Environmental Limitations-(lack of equipment, weather restraints, etc.). 88-Not Attempted due to Medical Conditions or Safety Concerns. Roll Left & Right (QC): 4 Sit to Lying (QC): 3 Sit to Stand (QC): 3 Chair/Tiz-rd-Zzhzx Xfer(QC): 3 Weight Bearing Right Lower Extremity: Right Weight Bearing/Tolerated Gait Training Distance: 20'x2 Walk 10 feet (QC): 4 Gait Persons Needed: 1 Gait Assistive Device: FWW patient did not want to ambulate another 20' due to fatigue Wheelchair Training Does the Pt Use a Wheelchair?: Yes Wheel 50 ft with 2 turns (QC): 5 Wheel 150 ft (QC): 5 Type of Wheelchair: Manual 150'x2 Treatments bed mobility and transfers, ambulation, WC mobiltiy Assessment Current Status: Fair Progress slowly improving ambulation PT Short Term Goals Short Term Goals Time Frame: Aug 21, 2019 Roll Left & Right: 4 Sit to lyin Lying to sitting on side of be: 3 Sit to stand: 3 Chair/jon-gf-jrcdh transfer: 4 Walk 10 feet: 4 Walk 50 feet with two turns: 4 PT Tobacco Dipper Goals Care Home Goals PT Care Home Goals Time Frame: Sep 04, 2019 Roll Left & Right (QC): 4 (SBA) Sit to Lying (QC): 4 (SBA) Lying-Sitting on Side/Bed(QC): 4 (SBA) Sit to Stand (QC): 3 (Cindy) Chair/Ldk-xx-Iruii Xfer(QC): 4 (SBA) Toilet Transfer (QC): 3 (Cindy) Car Transfer (QC): 3 (Cindy) Does the Patient Walk: Yes Walk 10 feet (QC): 4 (SBA) Walk 50ft with 2 Turns (QC): 4 (SBA) Walk 150 ft (QC): 4 (SBA) Walking 10ft on Uneven Surface: 88 1 Step (curb) (QC): 88 4 Steps (QC): 88 12 Steps (QC): 88 Picking up an Object (QC): 88 Does the Pt use WC or Scooter?: Yes Wheel 50 feet with 2 turns (QC: 6 Type: Manual Wheel 150 feet: 6 Type: Manual PT Plan Problem List Problem List: Activity Tolerance, Functional Strength, Safety, Balance, Gait, Transfer, Bed Mobility, ROM Treatment/Plan Treatment Plan: Continue Plan of Care Treatment Plan: Bed Mobility, Education, Functional Activity Herman, Functional Strength, Group Therapy, Gait, Safety, Therapeutic Exercise, Transfers Treatment Duration: Sep 04, 2019 Frequency: At least 5 of 7 days/Wk (IRF) Estimated Hrs Per Day: 1.5 hours per day Patient and/or Family Agrees t: Yes Safety Risks/Education Patient Education: Gait Training, Transfer Techniques, Correct Positioning, W/C Management, Safety Issues Teaching Recipient: Patient Teaching Methods: Demonstration, Discussion Response to Teaching: Reinforcement Needed Time/GCodes Time In: 1300 Time Out: 1330 Total Billed Treatment Time: 30 Total Billed Treatment 1 visit [facility] 10' GT 20' OFELIA BURCIAGA PT Aug 15, 2019 13:26
--- NOTE | 2019-08-15 13:50 | NUR ---
Pt is listed s [facility] but has not been active. Regional Sales Associate offered blessing.
[2019-08-15] MEDS: BISACODYL 10 MG SUPP (DULCOLAX) PR PRN (17:49)
[2019-08-15 17:51] VITALS: BP 120/73
[2019-08-15] MEDS: ENOXAPARIN 40 MG/0.4 ML (LOVENOX) SYR SC SCH (17:54)
[2019-08-15] MEDS: GABAPENTIN 300 MG (NEURONTIN) CAP PO SCH (20:13)
[2019-08-16 05:51] VITALS: BP 117/73
[2019-08-16] MEDS: BISACODYL 10 MG SUPP (DULCOLAX) PR PRN (07:27)
--- NOTE | 2019-08-16 07:28 | NUR ---
Patient requests suppository to help will bowel movement. Will also get oral meds with morning meds.
[2019-08-16] MEDS: ASPIRIN 81 MG CHEW (CHILDREN'S ASA) PO SCH (08:34)
[2019-08-16] MEDS: BACLOFEN 10 MG (LIORESAL) TAB PO SCH ×3 (08:34→21:17)
[2019-08-16] MEDS: SENNA W/DOCUSATE (SENOKOT S) TABLET PO SCH ×2 (08:34→21:17)
[2019-08-16] MEDS: polyethylene glycoL POWDER 17 GM (MIRALAX) PACK PO SCH ×2 (08:35→21:17)
--- NOTE | 2019-08-16 10:55 | Physical Therapy Daily Note ---
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 He is in the wheelchair on arrival and is ready to work. Pain Numeric Pain Scale: 4 Location: Right Comment: (R) hamstring spasticity Appearance Pt is alert and oriented throughout treatment. Mental Status Patient Orientation: Person, Place, Time, Situation Comprehension: 7 Expression: 7 Social Interaction: 7 Problem Solvin Memory: 7 Transfers SCALE: Activities may be completed with or without assistive devices. 0-Swhbhjkdpt-pzmzkje completes the activity by him/herself with no assistance from a helper. 5-Set-up or Clean-up Assistance-helper sets up or cleans up; patient completes activity. [place] assists only prior to or following the activity. 4-Supervision or Touching Assistance-helper provides verbal cues and/or touching/steadying and/or contact guard assistance as patient completes activity. Assistance may be provided throughout the activity or intermittently. 3-Partial/Moderate Assistance-helper does LESS THAN HALF the effort. [place] l ifts, holds or supports trunk or limbs, but provides less than half the effort. 2-Substantial/Maximal Assistance-helper does MORE THAN HALF the effort. [place] lifts or holds trunk or limbs and provides more than half the effort. 8-Oeovwbykf-pncxgl does ALL the effort. Patient does none of the effort to complete the activity. Or, the assistance of 2 or more helpers is required for t he patient to complete the activity. If activity was not attempted, code reason: 7-Patient Refused. 9-Not Applicable-not attempted and the patient did not perform the activity before the current illness, exacerbation or injury. 10-Not Attempted due to Environmental Limitations-(lack of equipment, weather restraints, etc.). 88-Not Attempted due to Medical Conditions or Safety Concerns. Roll Left & Right (QC): 4 Sit to Lying (QC): 3 Lying to Sitting/Side of Bed(Q: 3 Sit to Stand (QC): 3 Chair/Wuy-tq-Zjtob Xfer(QC): 3 Weight Bearing Right Lower Extremity: Right Weight Bearing/Tolerated Gait Training Does the Patient Walk?: Yes Distance: 90ft x2 Walk 10 feet (QC): 4 Walk 50 ft with 2 Turns(QC): 4 Gait Persons Needed: 1 Gait Assistive Device: FWW Exercises Supine Ex: LE Protocol Supine Reps: 20 Seated Therapy Exercises: LE Protocol Seated Reps: 20 Treatments Worked on (R) hamstring stretching, active and passive, including CR for quad and hamstring to facilitate (R) knee ROM. Assessment Current Status: Good Progress Pt is ambulating well with good stability. Difficulty with sit to stand and transfers, requiring assist for the legs due to (R) hamstring spasticity. PT Short Term Goals Short Term Goals Time Frame: Aug 21, 2019 Roll Left & Right: 4 Sit to lyin Lying to sitting on side of be: 3 Sit to stand: 3 Chair/vsq-gb-vuzmg transfer: 4 Walk 10 feet: 4 Walk 50 feet with two turns: 4 PT Water Superintendent Goals Water Superintendent Goals PT Water Superintendent Goals Time Frame: Sep 04, 2019 Roll Left & Right (QC): 4 (SBA) Sit to Lying (QC): 4 (SBA) Lying-Sitting on Side/Bed(QC): 4 (SBA) Sit to Stand (QC): 3 (Cindy) Chair/Vtj-jk-Dilyo Xfer(QC): 4 (SBA) Toilet Transfer (QC): 3 (Cindy) Car Transfer (QC): 3 (Cindy) Does the Patient Walk: Yes Walk 10 feet (QC): 4 (SBA) Walk 50ft with 2 Turns (QC): 4 (SBA) Walk 150 ft (QC): 4 (SBA) Walking 10ft on Uneven Surface: 88 1 Step (curb) (QC): 88 4 Steps (QC): 88 12 Steps (QC): 88 Picking up an Object (QC): 88 Does the Pt use WC or Scooter?: Yes Wheel 50 feet with 2 turns (QC: 6 Type: Manual Wheel 150 feet: 6 Type: Manual PT Plan Treatment/Plan Treatment Plan: Continue Plan of Care Treatment Plan: Bed Mobility, Education, Functional Activity Herman, Functional Strength, Group Therapy, Gait, Safety, Therapeutic Exercise, Transfers Treatment Duration: Sep 04, 2019 Frequency: At least 5 of 7 days/Wk (IRF) Estimated Hrs Per Day: 1.5 hours per day Patient and/or Family Agrees t: Yes Time/GCodes Time In: 0945 Time Out: 1039 Total Billed Treatment Time: 54 Total Billed Treatment 1, gt x2 (24), ex x2 (30) KISHOR MATIAS PT Aug 16, 2019 10:55
--- NOTE | 2019-08-16 11:21 | Occupational Ther Daily Note ---
OT Current Status-Daily Note Subjective Pt. reports pain in right knee with movement but does not report pain level. Pt. given pain medication by nursing. Appearance Pt. in bed. Agrees to work with OT. Mental Status/Objective Patient Orientation: Person, Place, Time, Situation ADL-Treatment Therapy Code Descriptions/Definitions Functional Green Measure: 0=Not Assessed/NA 4=Minimal Assistance 1=Total Assistance 5=Supervision or Setup 2=Maximal Assistance 6=Modified Green 3=Moderate Assistance 7=Complete IndependenceSCALE: Activities may be completed with or without assistive devices. 0-Koognxnldp-mfrilia completes the activity by him/herself with no assistance from a helper. 5-Set-up or Clean-up Assistance-helper sets up or cleans up; patient completes activity. [place] assists only prior to or following the activity. 4-Supervision or Touching Assistance-helper provides verbal cues and/or touching/steadying and/or contact guard assistance as patient completes activity. Assistance may be provided throughout the activity or intermittently. 3-Partial/Moderate Assistance-helper does LESS THAN HALF the effort. [place] lifts, holds or supports trunk or limbs, but provides less than half the effort. 2-Substantial/Maximal Assistance-helper does MORE THAN HALF the effort. [place] lifts or holds trunk or limbs and provides more than half the effort. 1-Jnrwlakvn-jvwbjf does ALL the effort. Patient does none of the effort to c omplete the activity. Or, the assistance of 2 or more helpers is required for the patient to complete the activity. If activity was not attempted, code reason: 7-Patient Refused. 9-Not Applicable-not attempted and the patient did not perform the activity before the current illness, exacerbation or injury. 10-Not Attempted due to Environmental Limitations-(lack of equipment, weather restraints, etc.). 88-Not Attempted due to Medical Conditions or Safety Concerns. Oral Hygiene (QC): 6 (Mod I from wheelchair level at sink.) Upper Body Dressing (QC): 4 (SBA at bed level to doff/don shirt.) Lower Body Dressing (QC): 4 (SBA and increased time, with use of AE to doff shorts and don shorts at bed level in supine position.) Pt. agrees to treatment. Practiced dressing in bed, as yesterday he had difficulty while seated on tub bench in shower room. Pt. able to roll side to side to doff/don shorts over hips. Required AE to doff/don over feet. Tra nsferred supine-sit with SBA. OT and pt. talked about what transfers he has to be able to do at home for functional independence. Pt. states that at home, he is able to transfer to his toilet from his chair, and to his bed. He does this by sliding over from his wheelchair. Pt. practiced sliding from wheelchair to shower chair with SBA. This was fully clothed however. Also utilized slide board to transfer from bed to wheelchair with min assist. Due to inability to fully extend right LE at this time, pt. is having difficulty with sit-stand. To make tasks easier for family at home, OT and pt. problem solved easiest and safest way for him to complete all transfers and ADLs. At this time, using slide board and scooting to and from surface seems to be easier for him. These goals will be continued in conjunction with sit-stand transfers. Pt. stood at parallel bar with min assist for sit-stand. Pt. able to stand approximately 1 minute, but unable to fully place right LE on floor. Noted right hamstring very tight, with occasional muscle spasms. Pt. transferred back to wheelchair and self propelled back to room. All needs met. Education OT Patient Education: Correct positioning, Modified ADL techniques, Progress toward Goal/Update tx plan, Purpose of tx/functional activities, Reviewed precautions, Rehab process, Transfer techniques Teaching Recipient: Patient Teaching Methods: Demonstration, Discussion Response to Teaching: Verbalize Understanding, Return Demonstration OT Short Term Goals Short Term Goals Time Frame: Aug 21, 2019 Eatin Oral hygiene: 6 Toileting hygiene: 4 Shower/bathe self: 4 Upper body dressin Lower body dressin Putting on/taking off footwear: 3 OT [facility] Goals [facility] Goals Time Frame: Aug 28, 2019 Eating (QC): 6 Oral Hygiene (QC): 6 Toileting Hygiene (QC): 6 Shower/Bathe Self (QC): 5 Upper Body Dressing (QC): 6 Lower Body Dressing (QC): 6 On/Off Footwear (QC): 6 Additional Goals: 1-Demonstrate ADL Tasks, 2-Verbalize Understanding, 3- ImproveStrength/Herman 1=Demonstrate adherence to instructed precautions during ADL tasks. 2=Patient will verbalize/demonstrate understanding of assistive michelle terry/modifications for ADL. 3=Patient will improve strength/tolerance for activity to enable patient to perform ADL's. OT Education/Plan Problem List/Assessment Assessment: Decreased Activ Tolerance, Dependent Transfers, Impaired Bed Mobility, Impaired Funct Balance, Impaired I ADL's, Impaired Self-Care Skills Discharge Recommendations Plan/Recommendations: Continue POC Therapy Discharge Recommendati: Home & Family, Post Acute OT Equpiment Recommendations-D/C: Extended Bath Bench, Hip Kit Treatment Plan/Plan of Care Treatment,Training & Education: Yes Patient would benefit from OT for education, treatment and training to promote independence in ADL's, mobility, safety and/or upper extremity function for ADL's. Plan of Care: ADL Retraining, Functional Mobility, Group Exercise/Act as Ind, UE Funct Exercise/Act Treatment Duration: Aug 28, 2019 Frequency: At least 5 of 7 days/Wk (IRF) Estimated Hrs Per Day: 1.5 hours per day Agreement: Yes Rehab Potential: Good Time/GCodes Start Time: 08:30 Stop Time: 09:30 Total Time Billed (hr/min): 60 Billed Treatment Time 1, ADL x 30minutes, FA x 30minutes GHAZALA COSTA OT Aug 16, 2019 11:21
--- NOTE | 2019-08-16 12:07 | PM&R Progress Note ---
Subjective HPI/CC On Admission Date Seen by Provider: Aug 16, 2019 Time Seen by Provider: 10:30 Subjective/Events-last exam Patient in good spirits today Most therapy focuses on residual from spinal cord injury 1989 No falls but high risk Reviewed meds used DVT PPX with ASA and Lovenox since h/o DVT 1989 IT helped set up his computer Percocet and Baclofen working very well for him Suppository will be given today Checked meds and labs Reviewed therapy notes Conferred with stadium attendant of Systems Gastrointestinal: Constipation Musculoskeletal: leg pain Neurological: Weakness, Numbness, Incoordination Objective Exam Vital Signs Vital Signs Date Time Temp Pulse Resp B/P (MAP) Pulse Ox O2 Delivery O2 Flow Rate FiO2 08/17/19 06:16 36.6 64 18 111/68 (82) 96 Room Air Capillary Refill : Less Than 3 SecondsLess Than 3 Seconds General Appearance: No Apparent Distress, WD/WN HEENT: PERRL/EOMI, Normal ENT Inspection, Pharynx Normal Neck: Full Range of Motion, Normal Inspection, Non Tender, Supple, Carotid Bruit Respiratory: Chest Non Tender, Lungs Clear, Normal Breath Sounds, No Accessory Muscle Use, No Respiratory Distress Cardiovascular: Regular Rate, Rhythm, No Edema, No Gallop, No JVD, No Murmur, Normal Peripheral Pulses Gastrointestinal: Normal Bowel Sounds, No Organomegaly, No Pulsatile Mass, Non Tender, Soft Back: Normal Inspection, No CVA Tenderness, No Vertebral Tenderness, Decreased Range of Motion Extremity: Normal Capillary Refill, Normal Inspection, Normal Range of Motion (except right leg), Non Tender, No Calf Tenderness, No Pedal Edema Neurologic/Psychiatric: Alert, Oriented x3, Normal Mood/Affect, Motor Weakness (all extremities 4/5, muscle wasting upper extremities) Skin: Normal Color, Warm/Dry Lymphatic: No Adenopathy Results/Procedures Lab Patient resulted labs reviewed. [facility] Transfers Therapy Code Descriptions/Definitions Functional [place] Measure: 0=Not Assessed/NA 4=Minimal Assistance 1=Total Assistance 5=Supervision or Setup 2=Maximal Assistance 6=Modified Paul 3=Moderate Assistance 7=Complete IndependenceSCALE: Activities may be completed with or without assistive devices. 8-Glgxpqxgrk-ixyxekd completes the activity by him/herself with no assistance from a helper. 5-Set-up or Clean-up Assistance-helper sets up or cleans up; patient completes activity. [place] assists only prior to or following the activity. 4-Supervision or Touching Assistance-helper provides verbal cues and/or touching/steadying and/or contact guard assistance as patient completes activity. Assistance may be provided throughout the activity or intermittently. 3-Partial/Moderate Assistance-helper does LESS THAN HALF the effort. [place] lifts, holds or supports trunk or limbs, but provides less than half the effort. 2-Substantial/Maximal Assistance-helper does MORE THAN HALF the effort. [place] lifts or holds trunk or limbs and provides more than half the effort. 4-Vvrhqjmuz-kqotub does ALL the effort. Patient does none of the effort to complete the activity. Or, the assistance of 2 or more helpers is required for the patient to complete the activity. If activity was not attempted, code reason: 7-Patient Refused. 9-Not Applicable-not attempted and the patient did not perform the activity before the current illness, exacerbation or injury. 10-Not Attempted due to Environmental Limitations-(lack of equipment, weather restraints, etc.). 88-Not Attempted due to Medical Conditions or Safety Concerns. Roll Left to Right (QC): 4 Sit to Lying (QC): 3 Sit to Stand (QC): 3 Chair/Zyg-yq-Cbslk Xfer(QC): 3 Car Transfer (QC): 2 Gait Training Does the Patient Walk?: Yes Distance: 90ft x2 Walk 10 feet (QC): 4 Walk 50 ft with 2 Turns(QC): 4 Walk 150 ft (QC): 88 Walking 10ft/uneven surface-QC: 88 Gait Persons Needed: 1 Gait Assistive Device: FWW Wheelchair Training Does the Pt Use a Wheelchair?: Yes Distance: 100' Wheel 50 ft with 2 turns (QC): 5 Wheel 150 ft (QC): 5 Type of Wheelchair: Manual Stair Training 1 Step (curb) (QC): 88 4 Steps (QC): 88 12 Steps (QC): 88 Balance Picking up an Object (QC): 88 Mental Status/Objective Comprehension: 7 Expression: 7 Social Interaction: 7 Problem Solvin Memory: 7 ADL-Treatment Eating (QC): 6 Oral Hygiene (QC): 6 (Mod I from wheelchair level at sink.) Shower/Bathe Self (QC): 4 (CGA on shower bench for dymnamic movements.) Upper Body Dressing (QC): 4 (SBA at bed level to doff/don shirt.) Lower Body Dressing (QC): 4 (SBA and increased time, with use of AE to doff shorts and don shorts at bed level in supine position.) On/Off Footwear (QC): 4 (SBA with sock aide for slipper socks.) Toileting Hygiene (QC): 7 Toilet Transfer (QC): 7 Assessment/Plan Assessment and Plan Assess & Plan/Chief Complaint Assessment: s/p right total knee replacement POD # 9 h/o DVT Spinal cord injury hx C4-C6 1989 Muscle spasms severe and incapacitating acute on chronic Neurogenic bladder Colon atony GERD s/p acute hyponatremia DVT PPx with ASA and Lovenox Plan: Lovenox DC Fluid restriction since sodium 135 Pain control IRF protocol Bowel and bladder management (1) Status post right knee replacement (2) History of spinal cord injury (3) Muscle spasm (4) Neurogenic bladder (5) Colon atonic (6) Muscle wasting (7) Hyponatremia (8) History of DVT (deep vein thrombosis) (9) DVT prophylaxis (10) Chronic GERD HILARIO FAIRBANKS DO Aug 16, 2019 12:07
[2019-08-16] MEDS: oxyCODONE/APAP 5/325MG (PERCOCET 5) TABLET PO PRN ×2 (12:15→21:57)
--- NOTE | 2019-08-16 14:22 | Occupational Ther Daily Note ---
OT Current Status-Daily Note Subjective No pain reported. Appearance Pt. up in wheelchair. Has just finished with PT. Agrees to work with OT. Mental Status/Objective Patient Orientation: Person, Place, Time, Situation ADL-Treatment Therapy Code Descriptions/Definitions Functional [place] Measure: 0=Not Assessed/NA 4=Minimal Assistance 1=Total Assistance 5=Supervision or Setup 2=Maximal Assistance 6=Modified [place] 3=Moderate Assistance 7=Complete IndependenceSCALE: Activities may be completed with or without assistive devices. 3-Gugkgowjds-phgfiyu completes the activity by him/herself with no assistance from a helper. 5-Set-up or Clean-up Assistance-helper sets up or cleans up; patient completes activity. [place] assists only prior to or following the activity. 4-Supervision or Touching Assistance-helper provides verbal cues and/or touching/steadying and/or contact guard assistance as patient completes activity. Assistance may be provided throughout the activity or intermittently. 3-Partial/Moderate Assistance-helper does LESS THAN HALF the effort. [place] lifts, holds or supports trunk or limbs, but provides less than half the effort. 2-Substantial/Maximal Assistance-helper does MORE THAN HALF the effort. [place] lifts or holds trunk or limbs and provides more than half the effort. 7-Igpmpcenv-kebzxo does ALL the effort. Patient does none of the effort to complete the activity. Or, the assistance of 2 or more helpers is required for the patient to complete the activity. If activity was not attempted, code reason: 7-Patient Refused. 9-Not Applicable-not attempted and the patient did not perform the activity before the current illness, exacerbation or injury. 10-Not Attempted due to Environmental Limitations-(lack of equipment, weather restraints, etc.). 88-Not Attempted due to Medical Conditions or Safety Concerns. Pt. worked on ADL transfers and mobility. Pt. transferred to therapy mat with CGA. OT and pt. worked on sit to/from supine to simulate home transfer. Pt. states that currently, he sleeps on a mat on floor, but will now use a regular bed. If needed, pt. will need to use hospital bed. Pt. states that he is okay with this. Pt. utilized leg control and recovery combat rescue to get right LE into and out of bed. Pt. worked on smooth transitions. However, due to prior SCI, pt. does not have papo quate core strength. So he often has to move in quick movements that can seem unsafe. Pt. stood at parallel bar x 2 with min assist for sit-stand. Pt. has technique for standing that he uses at stable surface. Educated him on grab bars at home that could simulate same transfer. Pt. verbalized understanding. Pt. self propelled back to room. Transferred to reclining chair with CGA. All needs met. Education OT Patient Education: Correct positioning, Exercise program, Modified ADL techniques, Progress toward Goal/Update tx plan, Purpose of tx/functional activities, Reviewed precautions, Rehab process, Transfer techniques Teaching Recipient: Patient Teaching Methods: Demonstration, Discussion Response to Teaching: Verbalize Understanding, Return Demonstration OT Short Term Goals Short Term Goals Time Frame: Aug 21, 2019 Eatin Oral hygiene: 6 Toileting hygiene: 4 Shower/bathe self: 4 Upper body dressin Lower body dressin Putting on/taking off footwear: 3 OT Longterm Goals [place] Operator Goals Time Frame: Aug 28, 2019 Eating (QC): 6 Oral Hygiene (QC): 6 Toileting Hygiene (QC): 6 Shower/Bathe Self (QC): 5 Upper Body Dressing (QC): 6 Lower Body Dressing (QC): 6 On/Off Footwear (QC): 6 Additional Goals: 1-Demonstrate ADL Tasks, 2-Verbalize Understanding, 3- ImproveStrength/Herman 1=Demonstrate adherence to instructed precautions during ADL tasks. 2=Patient will verbalize/demonstrate understanding of assistive devices/modifications for ADL. 3=Patient will improve strength/tolerance for activity to enable patient to perform ADL's. OT Education/Plan Problem List/Assessment Assessment: Decreased Activ Tolerance, Dependent Transfers, Impaired Funct Balance, Impaired I ADL's, Impaired Self-Care Skills Discharge Recommendations Plan/Recommendations: Continue POC Therapy Discharge Recommendati: Home & Family, Post Acute OT Equpiment Recommendations-D/C: Extended Bath Bench, Hip Kit Treatment Plan/Plan of Care Treatment,Training & Education: Yes Patient would benefit from OT for education, treatment and training to promote independence in ADL's, mobility, safety and/or upper extremity function for ADL's. Plan of Care: ADL Retraining, Functional Mobility, Group Exercise/Act as Ind, UE Funct Exercise/Act Treatment Duration: Aug 28, 2019 Frequency: At least 5 of 7 days/Wk (IRF) Estimated Hrs Per Day: 1.5 hours per day Agreement: Yes Rehab Potential: Good Time/GCodes Start Time: 13:35 Stop Time: 14:05 Total Time Billed (hr/min): 30 Billed Treatment Time 1, FA x 2 GHAZALA COSTA OT Aug 16, 2019 14:21
--- NOTE | 2019-08-16 14:39 | Physical Therapy Daily Note ---
PT Daily Note-Current Subjective Pt is in bed and agreeable to treatment. Pain Numeric Pain Scale: 5-Moderate Pain Location: Right Comment: hamstring spasticity Mental Status Patient Orientation: Person, Place, Time, Situation Transfers SCALE: Activities may be completed with or without assistive devices. 3-Iooeihalxa-dlkeddt completes the activity by him/herself with no assistance from a helper. 5-Set-up or Clean-up Assistance-helper sets up or cleans up; patient completes activity. [place] assists only prior to or following the activity. 4-Supervision or Touching Assistance-helper provides verbal cues and/or touching/steadying and/or contact guard assistance as patient completes ac tivity. Assistance may be provided throughout the activity or intermittently. 3-Partial/Moderate Assistance-helper does LESS THAN HALF the effort. [place] lifts, holds or supports trunk or limbs, but provides less than half the effort. 2-Substantial/Maximal Assistance-helper does MORE THAN HALF the effort. [place] lifts or holds trunk or limbs and provides more than half the effort. 3-Iprharlgc-jrxjgr does ALL the effort. Patient does none of the effort to complete the activity. Or, the assistance of 2 or more helpers is required for the patient to complete the activity. If activity was not attempted, code reason: 7-Patient Refused. 9-Not Applicable-not attempted and the patient did not perform the activity before the current illness, exacerbation or injury. 10-Not Attempted due to Environmental Limitations-(lack of equipment, weather restraints, etc.). 88-Not Attempted due to Medical Conditions or Safety Concerns. Roll Left & Right (QC): 5 Sit to Lying (QC): 5 Lying to Sitting/Side of Bed(Q: 4 Sit to Stand (QC): 3 Chair/Mwj-qk-Owasi Xfer(QC): 3 Weight Bearing Right Lower Extremity: Right Weight Bearing/Tolerated Gait Training Does the Patient Walk?: Yes Distance: 120ft. 80ft Walk 10 feet (QC): 4 Walk 50 ft with 2 Turns(QC): 4 Gait Assistive Device: FWW Exercises Supine Ex: LE Protocol Supine Reps: [address] Ex=Flex, Abd, Ext Standing Reps: 15 (R) LE standing ex NuStep Minutes: 5 NuStep Workload: 5 Assessment Better knee extension while supine, ~20 degrees. (R) knee flexion 45 degrees in standing. (R) knee PROM flexion 95 degrees. PT Short Term Goals Short Term Goals Time Frame: Aug 21, 2019 Roll Left & Right: 4 Sit to lyin Lying to sitting on side of be: 3 Sit to stand: 3 Chair/yjo-ku-bjhaz transfer: 4 Walk 10 feet: 4 Walk 50 feet with two turns: 4 PT Public Health Staff Nurse Goals Retirement Goals PT Public Health Staff Nurse Goals Time Frame: Sep 04, 2019 Roll Left & Right (QC): 4 (SBA) Sit to Lying (QC): 4 (SBA) Lying-Sitting on Side/Bed(QC): 4 (SBA) Sit to Stand (QC): 3 (Cindy) Chair/Fkp-wo-Vvqqd Xfer(QC): 4 (SBA) Toilet Transfer (QC): 3 (Cindy) Car Transfer (QC): 3 (Cindy) Does the Patient Walk: Yes Walk 10 feet (QC): 4 (SBA) Walk 50ft with 2 Turns (QC): 4 (SBA) Walk 150 ft (QC): 4 (SBA) Walking 10ft on Uneven Surface: 88 1 Step (curb) (QC): 88 4 Steps (QC): 88 12 Steps (QC): 88 Picking up an Object (QC): 88 Does the Pt use WC or Scooter?: Yes Wheel 50 feet with 2 turns (QC: 6 Type: Manual Wheel 150 feet: 6 Type: Manual PT Plan Treatment/Plan Treatment Plan: Continue Plan of Care Treatment Plan: Bed Mobility, Education, Functional Activity Herman, Functional Strength, Group Therapy, Gait, Safety, Therapeutic Exercise, Transfers Treatment Duration: Sep 04, 2019 Frequency: At least 5 of 7 days/Wk (IRF) Estimated Hrs Per Day: 1.5 hours per day Patient and/or Family Agrees t: Yes Time/GCodes Time In: 1300 Time Out: 1338 Total Billed Treatment Time: 38 Total Billed Treatment 1, gt (15), ex x2 (23) KISHOR MATIAS PT Aug 16, 2019 14:39
[2019-08-16 17:11] VITALS: BP 112/72
--- NOTE | 2019-08-16 17:22 | NUR ---
CM/SS WEEKLY TEAM CONFERENCE SUMMARY Met with patient to review conference Summary. Patient was just admitted 08/13/19, he is in agreement to continued ARU stay with proposed next review Tuesday08/22/19. Patient has self-coordinated that a ramp will be built at his home, eliminating that as a potential barrier to discharge. Patient remains tentative about the overall level of functioning he will have in his right leg, he is planning for wheelchair use if that is necessary during his recovery period if it is prolonged. Plan remains home at discharge. DME: OT identifies that tub transfer bench will be needed. Patient has a borrowed wheelchair, may need to get his own. Therapy team to continue to assess for appropriate DME for patient max performance and safety.
[2019-08-16] MEDS: ENOXAPARIN 40 MG/0.4 ML (LOVENOX) SYR SC SCH (18:35)
[2019-08-16] MEDS: GABAPENTIN 300 MG (NEURONTIN) CAP PO SCH (21:16)
[2019-08-17 06:16] VITALS: BP 111/68
[2019-08-17] MEDS: BACLOFEN 10 MG (LIORESAL) TAB PO SCH ×3 (09:43→21:07)
[2019-08-17] MEDS: ASPIRIN 81 MG CHEW (CHILDREN'S ASA) PO SCH (09:44)
--- NOTE | 2019-08-17 09:54 | Physical Therapy Daily Note ---
PT Daily Note-Current Subjective Patient in WC at bedside pre tx, agrees to PT, has 7/10 pain in right knee, states he will ask for pain meds after PT. Appearance Patient in WC at bedside post tx with nurse call, phone, tray, all needs met. Mental Status Patient Orientation: Normal For Age Transfers SCALE: Activities may be completed with or without assistive devices. 3-Edzzzntcof-eojzcwu completes the activity by him/herself with no assistance from a helper. 5-Set-up or Clean-up Assistance-helper sets up or cleans up; patient completes activity. [place] assists only prior to or following the activity. 4-Supervision or Touching Assistance-helper provides verbal cues and/or touching/steadying and/or contact guard assistance as patient completes activity. Assistance may be provided throughout the activity or intermittently. 3-Partial/Moderate Assistance-helper does LESS THAN HALF the effort. [place] lifts, holds or supports trunk or limbs, but provides less than half the effort. 2-Substantial/Maximal Assistance-helper does MORE THAN HALF the effort. [place] lifts or holds trunk or limbs and provides more than half the effort. 2-Vfxeavtxu-fmtlro does ALL the effort. Patient does none of the effort to complete the activity. Or, the assistance of 2 or more helpers is required for the patient to complete the activity. If activity was not attempted, code reason: 7-Patient Refused. 9-Not Applicable-not attempted and the patient did not perform the activity before the current illness, exacerbation or injury. 10-Not Attempted due to Environmental Limitations-(lack of equipment, weather restraints, etc.). 88-Not Attempted due to Medical Conditions or Safety Concerns. Sit to Stand (QC): 3 Chair/Mrb-oj-Zezza Xfer(QC): 4 mod assist for sit to stand from lower surfaces, CGA for transfers Weight Bearing Right Lower Extremity: Right Weight Bearing/Tolerated Gait Training Distance: 80'x2 Walk 10 feet (QC): 4 Walk 50 ft with 2 Turns(QC): 4 Gait Persons Needed: 1 Gait Assistive Device: FWW slow, antalgic, flexed bilateral knees, no heel strike on right side, narrow [place], patient is not able to bear much weight through his right leg. Wheelchair Training Does the Pt Use a Wheelchair?: Yes Wheel 50 ft with 2 turns (QC): 6 Wheel 150 ft (QC): 6 Type of Wheelchair: Manual 150'x2 Exercises seated manual flex/ext stretching of right knee NuStep Minutes: 15 NuStep Workload: 4 Treatments WC mobility, transfers, ambulation, stretching, LE strengthening Assessment Current Status: Fair Progress slow improvement PT Short Term Goals Short Term Goals Time Frame: Aug 21, 2019 Roll Left & Right: 4 Sit to lyin Lying to sitting on side of be: 3 Sit to stand: 3 Chair/zug-gd-fyytd transfer: 4 Walk 10 feet: 4 Walk 50 feet with two turns: 4 PT Glove Parts Cutter Goals Glove Parts Cutter Goals PT Prison Goals Time Frame: Sep 04, 2019 Roll Left & Right (QC): 4 (SBA) Sit to Lying (QC): 4 (SBA) Lying-Sitting on Side/Bed(QC): 4 (SBA) Sit to Stand (QC): 3 (Cindy) Chair/Xje-dt-Xpzsu Xfer(QC): 4 (SBA) Toilet Transfer (QC): 3 (Cindy) Car Transfer (QC): 3 (Cindy) Does the Patient Walk: Yes Walk 10 feet (QC): 4 (SBA) Walk 50ft with 2 Turns (QC): 4 (SBA) Walk 150 ft (QC): 4 (SBA) Walking 10ft on Uneven Surface: 88 1 Step (curb) (QC): 88 4 Steps (QC): 88 12 Steps (QC): 88 Picking up an Object (QC): 88 Does the Pt use WC or Scooter?: Yes Wheel 50 feet with 2 turns (QC: 6 Type: Manual Wheel 150 feet: 6 Type: Manual PT Plan Problem List Problem List: Activity Tolerance, Functional Strength, Safety, Balance, Gait, Transfer, Bed Mobility, ROM Treatment/Plan Treatment Plan: Continue Plan of Care Treatment Plan: Bed Mobility, Education, Functional Activity Herman, Functional Strength, Group Therapy, Gait, Safety, Therapeutic Exercise, Transfers Treatment Duration: Sep 04, 2019 Frequency: At least 5 of 7 days/Wk (IRF) Estimated Hrs Per Day: 1.5 hours per day Patient and/or Family Agrees t: Yes Safety Risks/Education Patient Education: Gait Training, Transfer Techniques, Correct Positioning, W/C Management, Safety Issues Teaching Recipient: Patient Teaching Methods: Demonstration, Discussion Response to Teaching: Reinforcement Needed Time/GCodes Time In: 0900 Time Out: 1000 Total Billed Treatment Time: 60 Total Billed Treatment 1 visit EX 20' GT 30' FA 10' OFELIA BURCIAGA PT Aug 17, 2019 09:54
--- NOTE | 2019-08-17 10:17 | Occupational Ther Daily Note ---
OT Current Status-Daily Note Subjective Pt in bed, agrees to therapy. States pain is "not too bad right now," but doesn't rate. ADL-Treatment Pt supine to sit using bed rail. Pt declined shower, but agrees to sponge bath. Pt transferred bed to w/c with min assist for safety. W/c mobility to restroom without assist. Pt completed sponge bath while seated at sink. Upper body bathing completed with set up. Pt declined to remove shorts, but bathed upper legs as able. Used dressing stick to doff socks. Used long handled sponge to wash lower legs and feet. Don pullover shirt with set up. Pt donned socks with set up using sock aid. Brushed teeth and combed hair with modified independence while seated at sink. Increased time for ADLs. Pt performed w/c mobility around therapy unit without assist. Pt sitting in w/c with needs met after session. Therapy Code Descriptions/Definitions Functional [place] Measure: 0=Not Assessed/NA 4=Minimal Assistance 1=Total Assistance 5=Supervision or Setup 2=Maximal Assistance 6=Modified [place] 3=Moderate Assistance 7=Complete IndependenceSCALE: Activities may be completed with or without assistive devices. 8-Dvhorlilhi-gquvpgq completes the activity by him/herself with no assistance from a helper. 5-Set-up or Clean-up Assistance-helper sets up or cleans up; patient completes activity. [place] assists only prior to or following the activity. 4-Supervision or Touching Assistance-helper provides verbal cues and/or touching/steadying and/or contact guard assistance as patient completes activity. Assistance may be provided throughout the activity or intermittently. 3-Partial/Moderate Assistance-helper does LESS THAN HALF the effort. [place] lifts, holds or supports trunk or limbs, but provides less than half the effort. 2-Substantial/Maximal Assistance-helper does MORE THAN HALF the effort. [place] lifts or holds trunk or limbs and provides more than half the effort. 0-Qevadynyj-tuzvka does ALL the effort. Patient does none of the effort to complete the activity. Or, the assistance of 2 or more helpers is required for the patient to complete the activity. If activity was not attempted, code reason: 7-Patient Refused. 9-Not Applicable-not attempted and the patient did not perform the activity b efore the current illness, exacerbation or injury. 10-Not Attempted due to Environmental Limitations-(lack of equipment, weather restraints, etc.). 88-Not Attempted due to Medical Conditions or Safety Concerns. Oral Hygiene (QC): 6 Upper Body Dressing (QC): 5 On/Off Footwear: 5 OT Short Term Goals Short Term Goals Time Frame: Aug 21, 2019 Eatin Oral hygiene: 6 Toileting hygiene: 4 Shower/bathe self: 4 Upper body dressin Lower body dressin Putting on/taking off footwear: 3 OT Fpc Goals Fpc Goals Time Frame: Aug 28, 2019 Eating (QC): 6 Oral Hygiene (QC): 6 Toileting Hygiene (QC): 6 Shower/Bathe Self (QC): 5 Upper Body Dressing (QC): 6 Lower Body Dressing (QC): 6 On/Off Footwear (QC): 6 Additional Goals: 1-Demonstrate ADL Tasks, 2-Verbalize Understanding, 3-Imp roveStrength/Herman 1=Demonstrate adherence to instructed precautions during ADL tasks. 2=Patient will verbalize/demonstrate understanding of assistive devices/modifications for ADL. 3=Patient will improve strength/tolerance for activity to enable patient to perform ADL's. OT Education/Plan Discharge Recommendations Plan/Recommendations: Continue POC Treatment Plan/Plan of Care Patient would benefit from OT for education, treatment and training to promote independence in ADL's, mobility, safety and/or upper extremity function for ADL's. Plan of Care: ADL Retraining, Functional Mobility, Group Exercise/Act as Ind, UE Funct Exercise/Act Treatment Duration: Aug 28, 2019 Frequency: At least 5 of 7 days/Wk (IRF) Estimated Hrs Per Day: 1.5 hours per day Agreement: Yes Rehab Potential: Good Time/GCodes Start Time: 08:00 Stop Time: 09:00 Total Time Billed (hr/min): 60 Billed Treatment Time 1 visit, ADLx4(60minutes) NIK HOLMAN OT Aug 17, 2019 10:17
--- NOTE | 2019-08-17 10:40 | PM&R Progress Note ---
Subjective HPI/CC On Admission Date Seen by Provider: Aug 17, 2019 Time Seen by Provider: 10:45 Subjective/Events-last exam Patient doing better each day Has ramp being built by [facility] in prep for DC home and may need a wheelchair and he is using his w/c today in the group room Spoke to Dr Luan Smalls at [facility] last night in-depth and he was concerned about his lack of motivation and decreased ROM of the knee and extension so I texted him the info he requested and then he asked to speak to his PT and that was accomplished to Dr Roland' expectations. Mentioned about ortho appt Tuesday and that may need arranged DVT PPX with ASA and Lovenox since h/o DVT 1989 IT helped set up his computer Percocet and Baclofen working very well for him Suppository didn't really work well so we will try Fleets and if that doesn't work SSE Checked meds and labs Reviewed therapy notes Conferred with residential instructor of Systems General: Fatigue Gastrointestinal: Constipation Musculoskeletal: leg pain Neurological: Weakness, Numbness, Incoordination Objective Exam Vital Signs Vital Signs Date Time Temp Pulse Resp B/P (MAP) Pulse Ox O2 Delivery O2 Flow Rate FiO2 08/17/19 06:16 36.6 64 18 111/68 (82) 96 Room Air Capillary Refill : Less Than 3 SecondsLess Than 3 Seconds General Appearance: No Apparent Distress, WD/WN HEENT: PERRL/EOMI, Normal ENT Inspection, Pharynx Normal Neck: Full Range of Motion, Normal Inspection, Non Tender, Supple, Carotid Bruit Respiratory: Chest Non Tender, Lungs Clear, Normal Breath Sounds, No Accessory Muscle Use, No Respiratory Distress Cardiovascular: Regular Rate, Rhythm, No Edema, No Gallop, No JVD, No Murmur, Normal Peripheral Pulses Gastrointestinal: Normal Bowel Sounds, No Organomegaly, No Pulsatile Mass, Non Tender, Soft Back: Normal Inspection, No CVA Tenderness, No Vertebral Tenderness, Decreased Range of Motion Extremity: Normal Capillary Refill, Normal Inspection, Normal Range of Motion (except right leg), Non Tender, No Calf Tenderness, No Pedal Edema Neurologic/Psychiatric: Alert, Oriented x3, Normal Mood/Affect, Motor Weakness (all extremities 4/5, muscle wasting upper extremities) Skin: Normal Color, Warm/Dry Lymphatic: No Adenopathy Results/Procedures Lab Patient resulted labs reviewed. FIM Transfers Therapy Code Descriptions/Definitions Functional [place] Measure: 0=Not Assessed/NA 4=Minimal Assistance 1=Total Assistance 5=Supervision or Setup 2=Maximal Assistance 6=Modified [place] 3=Moderate Assistance 7=Complete IndependenceSCALE: Activities may be completed with or without assistive devices. 7-Avotrnlkfz-yqppsoq completes the activity by him/herself with no assistance from a helper. 5-Set-up or Clean-up Assistance-helper sets up or cleans up; patient completes activity. [place] assists only prior to or following the activity. 4-Supervision or Touching Assistance-helper provides verbal cues and/or touching/steadying and/or contact guard assistance as patient completes activity. Assistance may be provided throughout the activity or intermittently. 3-Partial/Moderate Assistance-helper does LESS THAN HALF the effort. [place] lifts, holds or supports trunk or limbs, but provides less than half the effort. 2-Substantial/Maximal Assistance-helper does MORE THAN HALF the effort. [place] lifts or holds trunk or limbs and provides more than half the effort. 0-Lmsunypwx-fznvsb does ALL the effort. Patient does none of the effort to complete the activity. Or, the assistance of 2 or more helpers is required for the patient to complete the activity. If activity was not attempted, code reason: 7-Patient Refused. 9-Not Applicable-not attempted and the patient did not perform the activity before the current illness, exacerbation or injury. 10-Not Attempted due to Environmental Limitations-(lack of equipment, weather restraints, etc.). 88-Not Attempted due to Medical Conditions or Safety Concerns. Roll Left to Right (QC): 5 Sit to Lying (QC): 5 Sit to Stand (QC): 3 Chair/Rxm-wr-Mcioq Xfer(QC): 4 Car Transfer (QC): 2 Gait Training Does the Patient Walk?: Yes Distance: 80'x2 Walk 10 feet (QC): 4 Walk 50 ft with 2 Turns(QC): 4 Walk 150 ft (QC): 88 Walking 10ft/uneven surface-QC: 88 Gait Persons Needed: 1 Gait Assistive Device: FWW Wheelchair Training Does the Pt Use a Wheelchair?: Yes Distance: 100' Wheel 50 ft with 2 turns (QC): 6 Wheel 150 ft (QC): 6 Type of Wheelchair: Manual Stair Training 1 Step (curb) (QC): 88 4 Steps (QC): 88 12 Steps (QC): 88 Balance Picking up an Object (QC): 88 Mental Status/Objective Comprehension: 7 Expression: 7 Social Interaction: 7 Problem Solvin Memory: 7 ADL-Treatment Eating (QC): 6 Oral Hygiene (QC): 6 Shower/Bathe Self (QC): 4 (CGA on shower bench for dymnamic movements.) Upper Body Dressing (QC): 5 Lower Body Dressing (QC): 4 (SBA and increased time, with use of AE to doff shorts and don shorts at bed level in supine position.) On/Off Footwear (QC): 5 Toileting Hygiene (QC): 7 Toilet Transfer (QC): 7 Assessment/Plan Assessment and Plan Assess & Plan/Chief Complaint Assessment: s/p right total knee replacement POD # 10 h/o DVT Spinal cord injury hx C4-C6 1989 Muscle spasms severe and incapacitating acute on chronic Neurogenic bladder Colon atony GERD Acute hyponatremia DVT PPx with ASA and Lovenox Plan: Lovenox DC Fluid restriction since sodium 135 Pain control IRF protocol Bowel and bladder management (1) Status post right knee replacement (2) History of spinal cord injury (3) Muscle spasm (4) Neurogenic bladder (5) Colon atonic (6) Muscle wasting (7) Hyponatremia (8) History of DVT (deep vein thrombosis) (9) DVT prophylaxis (10) Chronic GERD HILARIO FAIRBANKS DO Aug 17, 2019 10:40
[2019-08-17] MEDS: SENNA W/DOCUSATE (SENOKOT S) TABLET PO SCH ×2 (10:44→21:07)
[2019-08-17] MEDS: oxyCODONE/APAP 5/325MG (PERCOCET 5) TABLET PO PRN ×2 (10:57→19:33)
[2019-08-17] MEDS: polyethylene glycoL POWDER 17 GM (MIRALAX) PACK PO SCH ×2 (10:58→21:08)
--- NOTE | 2019-08-17 12:54 | Occupational Ther Daily Note ---
OT Current Status-Daily Note Subjective Pt in bed, agrees to therapy. States he recently had a pain pill. Did not rate pain. ADL-Treatment Therapy Code Descriptions/Definitions Functional [place] Measure: 0=Not Assessed/NA 4=Minimal Assistance 1=Total Assistance 5=Supervision or Setup 2=Maximal Assistance 6=Modified [place] 3=Moderate Assistance 7=Complete IndependenceSCALE: Activities may be completed with or without assistive devices. 1-Wtbfhsuoze-lcdrzli completes the activity by him/herself with no assistance from a helper. 5-Set-up or Clean-up Assistance-helper sets up or cleans up; patient completes activity. [place] assists only prior to or following the activity. 4-Supervision or Touching Assistance-helper provides verbal cues and/or touching/steadying and/or contact guard assistance as patient completes activity. Assistance may be provided throughout the activity or intermittently. 3-Partial/Moderate Assistance-helper does LESS THAN HALF the effort. [place] lifts, holds or supports trunk or limbs, but provides less than half the effort. 2-Substantial/Maximal Assistance-helper does MORE THAN HALF the effort. [place] lifts or holds trunk or limbs and provides more than half the effort. 1-Dmayjfpzx-osealu does ALL the effort. Patient does none of the effort to complete the activity. Or, the assistance of 2 or more helpers is required for the patient to complete the activity. If activity was not attempted, code reason: 7-Patient Refused. 9-Not Applicable-not attempted and the patient did not perform the activity before the current illness, exacerbation or injury. 10-Not Attempted due to Environmental Limitations-(lack of equipment, weather restraints, etc.). 88-Not Attempted due to Medical Conditions or Safety Concerns. Other Treatment Pt supine to sit with SBA and increased time using bed rail. Pt worked on functional transfers during session to increase independence and safety. Pt transferred EOB to w/c with CGA. Pt performed w/c mobility to shower room. Pt educated on transfer to tub transfer bench. Pt was able to complete scooting transfer w/c <-> transfer bench with min assist. Pt returned to room. Performed sit to stand with mod assist from w/c and transferred to recliner chair using FWW. Pt sitting in chair with needs met after session. OT Short Term Goals Short Term Goals Time Frame: Aug 21, 2019 Eatin Oral hygiene: 6 Toileting hygiene: 4 Shower/bathe self: 4 Upper body dressin Lower body dressin Putting on/taking off footwear: 3 OT Veterinary Science Teacher Goals Veterinary Science Teacher Goals Time Frame: Aug 28, 2019 Eating (QC): 6 Oral Hygiene (QC): 6 Toileting Hygiene (QC): 6 Shower/Bathe Self (QC): 5 Upper Body Dressing (QC): 6 Lower Body Dressing (QC): 6 On/Off Footwear (QC): 6 Additional Goals: 1-Demonstrate ADL Tasks, 2-Verbalize Understanding, 3- ImproveStrength/Herman 1=Demonstrate adherence to instructed precautions during ADL tasks. 2=Patient will verbalize/demonstrate understanding of assistive devices/modifica tions for ADL. 3=Patient will improve strength/tolerance for activity to enable patient to perform ADL's. OT Education/Plan Discharge Recommendations Plan/Recommendations: Continue POC Treatment Plan/Plan of Care Patient would benefit from OT for education, treatment and training to promote independence in ADL's, mobility, safety and/or upper extremity function for ADL's. Plan of Care: ADL Retraining, Functional Mobility, Group Exercise/Act as Ind, UE Funct Exercise/Act Treatment Duration: Aug 28, 2019 Frequency: At least 5 of 7 days/Wk (IRF) Estimated Hrs Per Day: 1.5 hours per day Agreement: Yes Rehab Potential: Good Time/GCodes Start Time: 11:30 Stop Time: 12:00 Total Time Billed (hr/min): 30 Billed Treatment Time 1 visit, FAx2(30minutes) NIK HOLMAN OT Aug 17, 2019 12:54
--- NOTE | 2019-08-17 13:30 | Physical Therapy Daily Note ---
PT Daily Note-Current Subjective Patient in recliner pre tx, agrees to PT, voices no complaints of pain. Dr. Roland called and wants patient's right knee to be stretched into extension every hour. Nursing notified. Appearance Patient in WC post tx with nurse call, phone, tray, all needs met. Knee immobilizer on. Mental Status Patient Orientation: Normal For Age Transfers SCALE: Activities may be completed with or without assistive devices. 7-Bnimgdotmj-etsqkip completes the activity by him/herself with no assistance from a helper. 5-Set-up or Clean-up Assistance-helper sets up or cleans up; patient completes activity. [place] assists only prior to or following the activity. 4-Supervision or Touching Assistance-helper provides verbal cues and/or touching/steadying and/or contact guard assistance as patient completes activity. Assistance may be provided throughout the activity or intermittently. 3-Partial/Moderate Assistance-helper does LESS THAN HALF the effort. [place] lifts, holds or supports trunk or limbs, but provides less than half the effort. 2-Substantial/Maximal Assistance-helper does MORE THAN HALF the effort. [place] lifts or holds trunk or limbs and provides more than half the effort. 1-Ezfvzflzr-buknzk does ALL the effort. Patient does none of the effort to complete the activity. Or, the assistance of 2 or more helpers is required for the patient to complete the activity. If activity was not attempted, code reason: 7-Patient Refused. 9-Not Applicable-not attempted and the patient did not perform the activity before the current illness, exacerbation or injury. 10-Not Attempted due to Environmental Limitations-(lack of equipment, weather restraints, etc.). 88-Not Attempted due to Medical Conditions or Safety Concerns. Chair/Tlr-pd-Iwncu Xfer(QC): 3 Patient transferred to table in therapy room and layed down, performed knee extension stretching (manual), supine -> sit and then back to WC Weight Bearing Right Lower Extremity: Right Weight Bearing/Tolerated Wheelchair Training Does the Pt Use a Wheelchair?: Yes Wheel 50 ft with 2 turns (QC): 6 Wheel 150 ft (QC): 6 Type of Wheelchair: Manual Exercises right knee extension stretching, manual Treatments bed mobility and transfers, WC mobility, stretching Assessment Current Status: Fair Progress improved knee extension (R) to 10 degrees from full extension PT Short Term Goals Short Term Goals Time Frame: Aug 21, 2019 Roll Left & Right: 4 Sit to lyin Lying to sitting on side of be: 3 Sit to stand: 3 Chair/kdc-bn-hajxx transfer: 4 Walk 10 feet: 4 Walk 50 feet with two turns: 4 PT Sonography Technician Goals Detention Goals PT Sonography Technician Goals Time Frame: Sep 04, 2019 Roll Left & Right (QC): 4 (SBA) Sit to Lying (QC): 4 (SBA) Lying-Sitting on Side/Bed(QC): 4 (SBA) Sit to Stand (QC): 3 (Cindy) Chair/Mwz-er-Uklyh Xfer(QC): 4 (SBA) Toilet Transfer (QC): 3 (Cindy) Car Transfer (QC): 3 (Cindy) Does the Patient Walk: Yes Walk 10 feet (QC): 4 (SBA) Walk 50ft with 2 Turns (QC): 4 (SBA) Walk 150 ft (QC): 4 (SBA) Walking 10ft on Uneven Surface: 88 1 Step (curb) (QC): 88 4 Steps (QC): 88 12 Steps (QC): 88 Picking up an Object (QC): 88 Does the Pt use WC or Scooter?: Yes Wheel 50 feet with 2 turns (QC: 6 Type: Manual Wheel 150 feet: 6 Type: Manual PT Plan Problem List Problem List: Activity Tolerance, Functional Strength, Safety, Balance, Gait, Transfer, Bed Mobility, ROM Treatment/Plan Treatment Plan: Continue Plan of Care Treatment Plan: Bed Mobility, Education, Functional Activity Herman, Functional Strength, Group Therapy, Gait, Safety, Therapeutic Exercise, Transfers Treatment Duration: Sep 04, 2019 Frequency: At least 5 of 7 days/Wk (IRF) Estimated Hrs Per Day: 1.5 hours per day Patient and/or Family Agrees t: Yes Safety Risks/Education Patient Education: Correct Positioning, W/C Management, Safety Issues Teaching Recipient: Patient Teaching Methods: Demonstration, Discussion Response to Teaching: Reinforcement Needed Time/GCodes Time In: 1300 Time Out: 1330 Total Billed Treatment Time: 30 Total Billed Treatment 1 visit FA 10' EX 20' OFELIA BURCIAGA PT Aug 17, 2019 13:30
--- NOTE | 2019-08-17 15:56 | NUR ---
Ax2 to transfer from w/c to bed. Pt states that he would like to wait an hour before getting the fleets enema.
[2019-08-17 16:37] VITALS: BP 116/75
--- NOTE | 2019-08-17 17:50 | NUR ---
Pt turned weatherization technician lt & asked if someone, "could take him outside to get some fresh air ? Or I'm going to have a panic attack." Assisted to transfer from bed to w/c, then PCT taking pt outside per request to get fresh air.
[2019-08-17] MEDS: ENOXAPARIN 40 MG/0.4 ML (LOVENOX) SYR SC SCH (17:52)
--- NOTE | 2019-08-17 18:29 | NUR ---
Pt returned to his room, assisted to transfer to recliner, pt eating supper. States, "feels better after getting out side for a little while."
--- NOTE | 2019-08-17 18:36 | NUR ---
PT HAS F/U APPT W SURGEON, DR. EMELIA ZEE ON TUE, 08/21 AT 10:15 Addendum: 08/17/19 at 1838 by MARCELINO RIVER RN Amended: Links added.
--- NOTE | 2019-08-17 19:34 | NUR ---
PT HAD GOOD RESULTS FROM FLEETS ENEMA
[2019-08-17] MEDS: GABAPENTIN 300 MG (NEURONTIN) CAP PO SCH (21:07)
[2019-08-18 05:42] VITALS: BP 119/76
--- NOTE | 2019-08-18 08:00 | NUR ---
STATES WORE IMMOBILIZER ON RIGHT LEG ALL NIGHT. STATES FRUSTRATION BECAUSE UNABLE TO STRAIGHTEN RIGHT LEG OUT ALL THE WAY. EXTENSION EXERCISED DONE TO RIGHT KNEE. HAS SPASTIC MOVEMENTS OUT OF THAT LEG. STATES RIGHT KNEE/HIP PAIN WELL CONTROLLED WITH PERCOCET.
--- NOTE | 2019-08-18 08:22 | Occupational Ther Daily Note ---
OT Current Status-Daily Note Subjective Pt resting in bed, agrees to treatment. ADL-Treatment Supine to sit with SBA using bed rail. Pt donned pullover shirt with set up. Dons socks with set up and increased time using sock aid. Declined to change shorts today. Transfer to w/c CGA. Pt completed grooming tasks seated at sink. Pt brushed teeth, combed hair, and washed face with modified independence. Pt practiced transfer to BSC. Pt able to complete transfer w/c<-> BSC with CGA. Pt performed w/c mobility around rehab unit and to therapy gym. Transferred w/c<-> mat with CGA. Pt performed sit to supine with assist for right LE. Pt required assist for supine to sit secondary to decreased core strength. Pt returned to room and completed sit to stand from w/c with mod assist. Transferred to recliner chair with FWW. Pt sitting in chair with needs met after session. Therapy Code Descriptions/Definitions Functional [place] Measure: 0=Not Assessed/NA 4=Minimal Assistance 1=Total Assistance 5=Supervision or Setup 2=Maximal Assistance 6=Modified [place] 3=Moderate Assistance 7=Complete IndependenceSCALE: Activities may be completed with or without assistive devices. 2-Asrlgakbba-znkiyck completes the activity by him/herself with no assistance from a helper. 5-Set-up or Clean-up Assistance-helper sets up or cleans up; patient completes activity. [place] assists only prior to or following the activity. 4-Supervision or Touching Assistance-helper provides verbal cues and/or touching/steadying and/or contact guard assistance as patient completes activity. Assistance may be provided throughout the activity or intermittently. 3-Partial/Moderate Assistance-helper does LESS THAN HALF the effort. [place] lifts, holds or supports trunk or limbs, but provides less than half the effort. 2-Substantial/Maximal Assistance-helper does MORE THAN HALF the effort. [place] lifts or holds trunk or limbs and provides more than half the effort. 3-Wncfemsyx-ebcult does ALL the effort. Patient does none of the effort to complete the activity. Or, the assistance of 2 or more helpers is required for the patient to complete the activity. If activity was not attempted, code reason: 7-Patient Refused. 9-Not Applicable-not attempted and the patient did not perform the activity before the current illness, exacerbation or injury. 10-Not Attempted due to Environmental Limitations-(lack of equipment, weather restraints, etc.). 88-Not Attempted due to Medical Conditions or Safety Concerns. Oral Hygiene (QC): 6 Upper Body Dressing (QC): 5 On/Off Footwear: 5 OT Short Term Goals Short Term Goals Time Frame: Aug 21, 2019 Eatin Oral hygiene: 6 Toileting hygiene: 4 Shower/bathe self: 4 Upper body dressin Lower body dressin Putting on/taking off footwear: [address] Go[address] Road Advisor Goals Time Frame: Aug 28, 2019 Eating (QC): 6 Oral Hygiene (QC): 6 Toileting Hygiene (QC): 6 Shower/Bathe Self (QC): 5 Upper Body Dressing (QC): 6 Lower Body Dressing (QC): 6 On/Off Footwear (QC): 6 Additional Goals: 1-Demonstrate ADL Tasks, 2-Verbalize Understanding, 3- ImproveStrength/Herman 1=Demonstrate adherence to instructed precautions during ADL tasks. 2=Patient will verbalize/demonstrate understanding of assistive devices/modifications for ADL. 3=Patient will improve strength/tolerance for activity to enable patient to perform ADL's. OT Education/Plan Discharge Recommendations Plan/Recommendations: Continue POC Treatment Plan/Plan of Care Patient would benefit from OT for education, treatment and training to promote independence in ADL's, mobility, safety and/or upper extremity function for ADL's. Plan of Care: ADL Retraining, Functional Mobility, Group Exercise/Act as Ind, UE Funct Exercise/Act Treatment Duration: Aug 28, 2019 Frequency: At least 5 of 7 days/Wk (IRF) Estimated Hrs Per Day: 1.5 hours per day Agreement: Yes Rehab Potential: Good Time/GCodes Start Time: 07:40 Stop Time: 08:10 Total Time Billed (hr/min): 30 Billed Treatment Time 1 visit, ADLx2(30minutes) NIK HOLMAN OT Aug 18, 2019 08:22
[2019-08-18] MEDS: polyethylene glycoL POWDER 17 GM (MIRALAX) PACK PO SCH ×2 (08:24→20:26)
[2019-08-18] MEDS: ASPIRIN 81 MG CHEW (CHILDREN'S ASA) PO SCH (08:24)
[2019-08-18] MEDS: BACLOFEN 10 MG (LIORESAL) TAB PO SCH ×3 (08:24→20:24)
[2019-08-18] MEDS: SENNA W/DOCUSATE (SENOKOT S) TABLET PO SCH ×2 (08:24→20:24)
--- NOTE | 2019-08-18 10:33 | Physical Therapy Daily Note ---
PT Daily Note-Current Subjective Agrees to PT. Reports he had increased anxiety last night, but was able to be taken outdoors for a while and that seemed to help. Mental Status Patient Orientation: Person, Place, Time, Situation Transfers SCALE: Activities may be completed with or without assistive devices. 4-Nyssgdnjrx-dxmogzv completes the activity by him/herself with no assistance from a helper. 5-Set-up or Clean-up Assistance-helper sets up or cleans up; patient completes activity. [place] assists only prior to or following the activity. 4-Supervision or Touching Assistance-helper provides verbal cues and/or touching/steadying and/or contact guard assistance as patient completes activity. Assistance may be provided throughout the activity or intermittently. 3-Partial/Moderate Assistance-helper does LESS THAN HALF the effort. [place] lifts, holds or supports trunk or limbs, but provides less than half the effort. 2-Substantial/Maximal Assistance-helper does MORE THAN HALF the effort. [place] lifts or holds trunk or limbs and provides more than half the effort. 7-Hmgvkbies-jbxvmz does ALL the effort. Patient does none of the effort to complete the activity. Or, the assistance of 2 or more helpers is required for the patient to complete the activity. If activity was not attempted, code reason: 7-Patient Refused. 9-Not Applicable-not attempted and the patient did not perform the activity before the current illness, exacerbation or injury. 10-Not Attempted due to Environmental Limitations-(lack of equipment, weather restraints, etc.). 88-Not Attempted due to Medical Conditions or Safety Concerns. Sit to Lying (QC): 3 Lying to Sitting/Side of Bed(Q: 3 Sit to Stand (QC): 3 (min to CGA to stand; pt able to position his feet without cues and correct hand placement without cues. ) Weight Bearing Right Lower Extremity: Right Weight Bearing/Tolerated Gait Training Distance: 150 ft, 30 ft, 50 ft Gait Assistive Device: FWW Narrow MIGUELITO, nearly scissoring at times, walks on his toes right with decreased step through; unsteady with right knee in flexed position during gait Exercises Supine knee extension stretch right paired with a hamstring stretch; overpressure to encourage right knee extension; able to achieve 5-10 degrees from full extension; Pt has hamstring spasms that jerk knee into flexion intermittently with passive stretch. Pt performed Nu step x 15 minutes to promote knee flexion/extension as well as quad strengthening with cues as he performed to work to increase flexion and extension. Assessment Current Status: Good Progress Neuro spasticity as well as leg length difference (right longer than left) impair functional and intentional extension right knee; however, range availability is good. End feel with extension is firm but not solid. Gait is unsteady due to narrow MIG[place]ELITO and flexed knee. Pt making functional gains and his transfers are improved. Pt aware of his abilities and is able to safely mobilize. PT Short Term Goals Short Term Goals Time Frame: Aug 21, 2019 Roll Left & Right: 4 Sit to lyin Lying to sitting on side of be: 3 Sit to stand: 3 Chair/plr-jo-qpwjb transfer: 4 Walk 10 feet: 4 Walk 50 feet with two turns: 4 PT Senior Living Goals Wagon Driver Salesperson Goals PT Wagon Driver Salesperson Goals Time Frame: Sep 04, 2019 Roll Left & Right (QC): 4 (SBA) Sit to Lying (QC): 4 (SBA) Lying-Sitting on Side/Bed(QC): 4 (SBA) Sit to Stand (QC): 3 (Cindy) Chair/Qwn-jv-Scift Xfer(QC): 4 (SBA) Toilet Transfer (QC): 3 (Cindy) Car Transfer (QC): 3 (Cindy) Does the Patient Walk: Yes Walk 10 feet (QC): 4 (SBA) Walk 50ft with 2 Turns (QC): 4 (SBA) Walk 150 ft (QC): 4 (SBA) Walking 10ft on Uneven Surface: 88 1 Step (curb) (QC): 88 4 Steps (QC): 88 12 Steps (QC): 88 Picking up an Object (QC): 88 Does the Pt use WC or Scooter?: Yes Wheel 50 feet with 2 turns (QC: 6 Type: Manual Wheel 150 feet: 6 Type: Manual PT Plan Problem List Problem List: Activity Tolerance, Functional Strength, Safety, Balance, Gait, Transfer, Bed Mobility Treatment/Plan Treatment Plan: Continue Plan of Care Treatment Plan: Bed Mobility, Education, Functional Activity Herman, Functional Strength, Group Therapy, Gait, Safety, Therapeutic Exercise, Transfers Treatment Duration: Sep 04, 2019 Frequency: At least 5 of 7 days/Wk (IRF) Estimated Hrs Per Day: 1.5 hours per day Patient and/or Family Agrees t: Yes Safety Risks/Education Patient Education: Gait Training, Safety Issues Teaching Recipient: Patient Teaching Methods: Demonstration, Discussion Response to Teaching: Reinforcement Needed Time/GCodes Time In: 915 Time Out: 1000 Total Billed Treatment Time: 45 Total Billed Treatment visit EX 30 GT 15 MADELINE AKHTAR PT Aug 18, 2019 10:33
[2019-08-18] MEDS: oxyCODONE/APAP 5/325MG (PERCOCET 5) TABLET PO PRN ×2 (10:38→20:26)
--- NOTE | 2019-08-18 12:30 | NUR ---
TWO SMALL DARKENED AREAS ON RIGHT KNEE INCISION AND SHOWN TO DR. FAIRBANKS. SHE SENT PIC TO DR. ZEE. NO DRAINAGE. INCISION MILDLY RED.
--- NOTE | 2019-08-18 14:44 | PM&R Progress Note ---
Subjective HPI/CC On Admission Date Seen by Provider: Aug 18, 2019 Time Seen by Provider: 12:20 Subjective/Events-last exam Patient doing better each day Updated Dr Roland and sent him a pic of his freddie which look good and no evidence of any redness Mentioned about ortho appt and will arrange after he is DC DVT PPX with ASA and Lovenox since h/o DVT 1990 Got outside yesterday and felt really good about that Percocet and Baclofen working very well for him SSE cleared out constipation and completely evacuated bowels Checked meds and labs Reviewed therapy notes Conferred with wire rigger of Systems General: Fatigue Musculoskeletal: leg pain Neurological: Numbness, Incoordination Objective Exam Vital Signs Vital Signs Date Time Temp Pulse Resp B/P (MAP) Pulse Ox O2 Delivery O2 Flow Rate FiO2 08/18/19 16:11 36.2 79 16 101/67 (78) 98 Room Air Capillary Refill : Less Than 3 SecondsLess Than 3 Seconds General Appearance: No Apparent Distress, WD/WN HEENT: PERRL/EOMI, Normal ENT Inspection, Pharynx Normal Neck: Full Range of Motion, Normal Inspection, Non Tender, Supple, Carotid Bruit Respiratory: Chest Non Tender, Lungs Clear, Normal Breath Sounds, No Accessory Muscle Use, No Respiratory Distress Cardiovascular: Regular Rate, Rhythm, No Edema, No Gallop, No JVD, No Murmur, Normal Peripheral Pulses Gastrointestinal: Normal Bowel Sounds, No Organomegaly, No Pulsatile Mass, Non Tender, Soft Back: Normal Inspection, No CVA Tenderness, No Vertebral Tenderness, Decreased Range of Motion Extremity: Normal Capillary Refill, Normal Inspection, Normal Range of Motion (except right leg), Non Tender, No Calf Tenderness, No Pedal Edema Neurologic/Psychiatric: Alert, Oriented x3, Normal Mood/Affect, Motor Weakness (all extremities 4/5, muscle wasting upper extremities) Skin: Normal Color, Warm/Dry Lymphatic: No Adenopathy Results/Procedures Lab Patient resulted labs reviewed. FIM Transfers Therapy Code Descriptions/Definitions Functional [place] Measure: 0=Not Assessed/NA 4=Minimal Assistance 1=Total Assistance 5=Supervision or Setup 2=Maximal Assistance 6=Modified [place] 3=Moderate Assistance 7=Complete IndependenceSCALE: Activities may be completed with or without assistive devices. 2-Dnfexccvli-jqnesxb completes the activity by him/herself with no assistance from a helper. 5-Set-up or Clean-up Assistance-helper sets up or cleans up; patient completes activity. [place] assists only prior to or following the activity. 4-Supervision or Touching Assistance-helper provides verbal cues and/or touching/steadying and/or contact guard assistance as patient completes activity. Assistance may be provided throughout the activity or intermittently. 3-Partial/Moderate Assistance-helper does LESS THAN HALF the effort. [place] lifts, holds or supports trunk or limbs, but provides less than half the effort. 2-Substantial/Maximal Assistance-helper does MORE THAN HALF the effort. [place] lifts or holds trunk or limbs and provides more than half the effort. 3-Iprafonnn-ddujct does ALL the effort. Patient does none of the effort to complete the activity. Or, the assistance of 2 or more helpers is required for the patient to complete the activity. If activity was not attempted, code reason: 7-Patient Refused. 9-Not Applicable-not attempted and the patient did not perform the activity b efore the current illness, exacerbation or injury. 10-Not Attempted due to Environmental Limitations-(lack of equipment, weather restraints, etc.). 88-Not Attempted due to Medical Conditions or Safety Concerns. Roll Left to Right (QC): 5 Sit to Lying (QC): 3 Sit to Stand (QC): 3 (min to CGA to stand; pt able to position his feet without cues and correct hand placement without cues. ) Chair/Dtp-vs-Fppqt Xfer(QC): 3 Car Transfer (QC): 2 Gait Training Does the Patient Walk?: Yes Distance: 150 ft, 30 ft, 50 ft Walk 10 feet (QC): 4 Walk 50 ft with 2 Turns(QC): 4 Walk 150 ft (QC): 88 Walking 10ft/uneven surface-QC: 88 Gait Persons Needed: 1 Gait Assistive Device: FWW Wheelchair Training Does the Pt Use a Wheelchair?: Yes Distance: 100' Wheel 50 ft with 2 turns (QC): 6 Wheel 150 ft (QC): 6 Type of Wheelchair: Manual Stair Training 1 Step (curb) (QC): 88 4 Steps (QC): 88 12 Steps (QC): 88 Balance Picking up an Object (QC): 88 Mental Status/Objective Comprehension: 7 Expression: 7 Social Interaction: 7 Problem Solvin Memory: 7 ADL-Treatment Eating (QC): 6 Oral Hygiene (QC): 6 Shower/Bathe Self (QC): 4 (CGA on shower bench for dymnamic movements.) Upper Body Dressing (QC): 5 Lower Body Dressing (QC): 4 (SBA and increased time, with use of AE to doff shorts and don shorts at bed level in supine position.) On/Off Footwear (QC): 5 Toileting Hygiene (QC): 7 Toilet Transfer (QC): 7 Assessment/Plan Assessment and Plan Assess & Plan/Chief Complaint Assessment: s/p right total knee replacement POD # 11 h/o DVT Spinal cord injury hx C4-C6 1989 Muscle spasms severe and incapacitating acute on chronic Neurogenic bladder Colon atony GERD Acute hyponatremia DVT PPx with ASA and Lovenox Plan: Lovenox DC Fluid restriction since sodium 135 Pain control IRF protocol Bowel and bladder management Ortho appt upon DC (1) Status post right knee replacement (2) History of spinal cord injury (3) Muscle spasm (4) Neurogenic bladder (5) Colon atonic (6) Muscle wasting (7) Hyponatremia (8) History of DVT (deep vein thrombosis) (9) DVT prophylaxis (10) Chronic GERD HILARIO FAIRBANKS DO Aug 18, 2019 14:44
[2019-08-18 16:11] VITALS: BP 101/67
--- NOTE | 2019-08-18 18:00 | NUR ---
NAPPED AWHILE THIS AFTERNOON, BUT UP IN CHAIR MOST OF DAY. POOR OUTPUT TODAY, BUT VOIDED OVER 1 LITER LAST NIGHT. WILL CONTINUE TO MONITOR. RIGHT LEG IMMOBILIZER ON THIS AFTERNOON.
[2019-08-18] MEDS: ENOXAPARIN 40 MG/0.4 ML (LOVENOX) SYR SC SCH (18:07)
[2019-08-18] MEDS: GABAPENTIN 300 MG (NEURONTIN) CAP PO SCH (20:24)
[2019-08-19 05:09] VITALS: BP 143/68
--- NOTE | 2019-08-19 08:00 | NUR ---
DENIES PAIN. STATES FEELS IT MAY BE A LITTLE EASIER TODAY IN GETTING UP. STILL ONLY ABLE TO BEAR A LITTLE WEIGHT ON RIGHT LEG.
[2019-08-19] MEDS: ASPIRIN 81 MG CHEW (CHILDREN'S ASA) PO SCH (09:12)
[2019-08-19] MEDS: polyethylene glycoL POWDER 17 GM (MIRALAX) PACK PO SCH ×2 (09:12→20:15)
[2019-08-19] MEDS: SENNA W/DOCUSATE (SENOKOT S) TABLET PO SCH ×2 (09:12→20:02)
[2019-08-19] MEDS: BACLOFEN 10 MG (LIORESAL) TAB PO SCH ×3 (09:12→20:02)
[2019-08-19] MEDS: oxyCODONE/APAP 5/325MG (PERCOCET 5) TABLET PO PRN ×2 (10:42→20:02)
--- NOTE | 2019-08-19 12:59 | PM&R Progress Note ---
Subjective HPI/CC On Admission Date Seen by Provider: Aug 19, 2019 Time Seen by Provider: 13:00 Subjective/Events-last exam Patient doing better each day Updated Dr Roland on regular basis since admit Ortho appt Tuesday DVT PPX with ASA and Lovenox since h/o DVT 1990 Wants to go outside again today if possible Percocet and Baclofen working very well for him SSE cleared out constipation and completely evacuated bowels Tuesday night maintained on laxatives Checked meds and labs Reviewed therapy notes Conferred with product support manager of Systems General: Fatigue Musculoskeletal: leg pain Neurological: Weakness, Numbness, Incoordination Objective Exam Vital Signs Vital Signs Date Time Temp Pulse Resp B/P (MAP) Pulse Ox O2 Delivery O2 Flow Rate FiO2 08/19/19 17:14 36.4 75 18 110/74 (86) 98 Room Air Capillary Refill : Less Than 3 SecondsLess Than 3 Seconds General Appearance: No Apparent Distress, WD/WN HEENT: PERRL/EOMI, Normal ENT Inspection, Pharynx Normal Neck: Full Range of Motion, Normal Inspection, Non Tender, Supple, Carotid Bruit Respiratory: Chest Non Tender, Lungs Clear, Normal Breath Sounds, No Accessory Muscle Use, No Respiratory Distress Cardiovascular: Regular Rate, Rhythm, No Edema, No Gallop, No JVD, No Murmur, Normal Peripheral Pulses Gastrointestinal: Normal Bowel Sounds, No Organomegaly, No Pulsatile Mass, Non Tender, Soft Back: Normal Inspection, No CVA Tenderness, No Vertebral Tenderness, Decreased Range of Motion Extremity: Normal Capillary Refill, Normal Inspection, Normal Range of Motion (except right leg), Non Tender, No Calf Tenderness, No Pedal Edema Neurologic/Psychiatric: Alert, Oriented x3, Normal Mood/Affect, Motor Weakness (all extremities 4/5, muscle wasting upper extremities) Skin: Normal Color, Warm/Dry Lymphatic: No Adenopathy Results/Procedures Lab Patient resulted labs reviewed. FIM Transfers Therapy Code Descriptions/Definitions Functional [place] Measure: 0=Not Assessed/NA 4=Minimal Assistance 1=Total Assistance 5=Supervision or Setup 2=Maximal Assistance 6=Modified [place] 3=Moderate Assistance 7=Complete IndependenceSCALE: Activities may be completed with or without assistive devices. 4-Xehqpmierm-cirxxbd completes the activity by him/herself with no assistance from a helper. 5-Set-up or Clean-up Assistance-helper sets up or cleans up; patient completes activity. [place] assists only prior to or following the activity. 4-Supervision or Touching Assistance-helper provides verbal cues and/or touching/steadying and/or contact guard assistance as patient completes activity. Assistance may be provided throughout the activity or intermittently. 3-Partial/Moderate Assistance-helper does LESS THAN HALF the effort. [place] lifts, holds or supports trunk or limbs, but provides less than half the effort. 2-Substantial/Maximal Assistance-helper does MORE THAN HALF the effort. [place] lifts or holds trunk or limbs and provides more than half the effort. 9-Xjyonnutm-wocdez does ALL the effort. Patient does none of the effort to complete the activity. Or, the assistance of 2 or more helpers is required for the patient to complete the activity. If activity was not attempted, code reason: 7-Patient Refused. 9-Not Applicable-not attempted and the patient did not perform the activity before the current illness, exacerbation or injury. 10-Not Attempted due to Environmental Limitations-(lack of equipment, weather restraints, etc.). 88-Not Attempted due to Medical Conditions or Safety Concerns. Roll Left to Right (QC): 5 Sit to Lying (QC): 3 Sit to Stand (QC): 3 (min to CGA to stand; pt able to position his feet without cues and correct hand placement without cues. ) Chair/Pbf-wz-Azlcd Xfer(QC): 3 Car Transfer (QC): 2 Gait Training Does the Patient Walk?: Yes Distance: 150 ft, 30 ft, 50 ft Walk 10 feet (QC): 4 Walk 50 ft with 2 Turns(QC): 4 Walk 150 ft (QC): 88 Walking 10ft/uneven surface-QC: 88 Gait Persons Needed: 1 Gait Assistive Device: FWW Wheelchair Training Does the Pt Use a Wheelchair?: Yes Distance: 100' Wheel 50 ft with 2 turns (QC): 6 Wheel 150 ft (QC): 6 Type of Wheelchair: Manual Stair Training 1 Step (curb) (QC): 88 4 Steps (QC): 88 12 Steps (QC): 88 Balance Picking up an Object (QC): 88 Mental Status/Objective Comprehension: 7 Expression: 7 Social Interaction: 7 Problem Solvin Memory: 7 ADL-Treatment Eating (QC): 6 Oral Hygiene (QC): 6 Shower/Bathe Self (QC): 4 (CGA on shower bench for dymnamic movements.) Upper Body Dressing (QC): 5 Lower Body Dressing (QC): 4 (SBA and increased time, with use of AE to doff shorts and don shorts at bed level in supine position.) On/Off Footwear (QC): 5 Toileting Hygiene (QC): 7 Toilet Transfer (QC): 7 Assessment/Plan Assessment and Plan Assess & Plan/Chief Complaint Assessment: s/p right total knee replacement POD # 12 h/o DVT Spinal cord injury hx C4-C6 1989 Muscle spasms severe and incapacitating acute on chronic Neurogenic bladder Colon atony GERD Acute hyponatremia DVT PPx with ASA and Lovenox Plan: Lovenox DC Fluid restriction since sodium 135 Pain control IRF protocol Bowel and bladder management Ortho appt upon DC (1) Status post right knee replacement (2) History of spinal cord injury (3) Muscle spasm (4) Neurogenic bladder (5) Colon atonic (6) Muscle wasting (7) Hyponatremia (8) History of DVT (deep vein thrombosis) (9) DVT prophylaxis (10) Chronic GERD HILARIO FAIRBANKS DO Aug 19, 2019 12:59
[2019-08-19 17:14] VITALS: BP 110/74
[2019-08-19] MEDS: ENOXAPARIN 40 MG/0.4 ML (LOVENOX) SYR SC SCH (18:04)
[2019-08-19] MEDS: GABAPENTIN 300 MG (NEURONTIN) CAP PO SCH (20:02)
[2019-08-20 06:00] VITALS: BP 124/71
[2019-08-20 07:23] LABS: BASOPHILS % (AUTO) 0 % (0-10); EOSINOPHILS # (AUTO) 0.1 10^3/uL (0.0-0.3); EOSINOPHILS % (AUTO) 1 % (0-10); HEMATOCRIT 35 % (40-54); HEMOGLOBIN 11.6 G/DL (13.3-17.7); LYMPHOCYTES # (AUTO) 1.5 X 10^3 (1.0-4.0); LYMPHOCYTES % (AUTO) 17 % (12-44); MEAN CORPUSCULAR HEMOGLOBIN 32 PG (25-34); MEAN CORPUSCULAR HGB CONC 33 G/DL (32-36); MEAN CORPUSCULAR VOLUME 99 FL (80-99); MEAN PLATELET VOLUME 9.6 FL (7.4-10.4); MONOCYTES # (AUTO) 0.7 X 10^3 (0.0-1.0); MONOCYTES % (AUTO) 7 % (0-12); NEUTROPHILS # (AUTO) 6.7 X 10^3 (1.8-7.8); NEUTROPHILS % (AUTO) 75 % (42-75); PLATELET COUNT 442 10^3/uL (130-400); RED CELL DISTRIBUTION WIDTH 12.8 % (10.0-14.5)
[2019-08-20 07:42] LABS: ALBUMIN 3.3 GM/DL (3.2-4.5); CHLORIDE 103 MMOL/L (98-107); POTASSIUM 4.4 MMOL/L (3.6-5.0); SODIUM 138 MMOL/L (135-145)
[2019-08-20 07:43] LABS: CALCIUM 9.3 MG/DL (8.5-10.1)
[2019-08-20 07:44] LABS: GLUCOSE 82 MG/DL (70-105); TOTAL PROTEIN 6.7 GM/DL (6.4-8.2)
[2019-08-20 07:45] LABS: CARBON DIOXIDE 25 MMOL/L (21-32)
[2019-08-20 07:46] LABS: BILIRUBIN,TOTAL 0.3 MG/DL (0.1-1.0)
[2019-08-20 07:48] LABS: ALKALINE PHOSPHATASE 65 U/L (40-136); CREATININE SERUM 0.76 MG/DL (0.60-1.30); GFR ESTIMATED > 60
[2019-08-20 07:49] LABS: BUN/CREATININE RATIO 17
[2019-08-20 07:51] LABS: ALANINE AMINOTRANSFERASE 32 U/L (0-55)
[2019-08-20] MEDS: SENNA W/DOCUSATE (SENOKOT S) TABLET PO SCH ×2 (08:12→20:16)
[2019-08-20] MEDS: BACLOFEN 10 MG (LIORESAL) TAB PO SCH ×3 (08:13→20:15)
[2019-08-20] MEDS: ASPIRIN 81 MG CHEW (CHILDREN'S ASA) PO SCH (08:13)
[2019-08-20] MEDS: polyethylene glycoL POWDER 17 GM (MIRALAX) PACK PO SCH ×3 (08:22→21:55)
--- NOTE | 2019-08-20 10:19 | Physical Therapy Daily Note ---
PT Daily Note-Current Subjective Pt. states he is not in any real pain. States he kind of wishes now he had not had this done and was warned about a possible less than desirable outcome. Pt. states there is no way he could attempt stairs right now and is considering having a ramp installed in his garage where the 3 steps are that he has to negotiate. Pt. also states he usually sleeps on the floor on a mat at home because he needs a firm surface he can get leverage on to move and roll about. Pt. states he knows he wont be able to manage this now and is unsure what his bed plan will be at home now Pain Location: No Pain Reported Mental Status Patient Orientation: Normal For Age Transfers SCALE: Activities may be completed with or without assistive devices. 7-Retaxzoomv-fmghhou completes the activity by him/herself with no assistance from a helper. 5-Set-up or Clean-up Assistance-helper sets up or cleans up; patient completes activity. [place] assists only prior to or following the activity. 4-Supervision or Touching Assistance-helper provides verbal cues and/or touching/steadying and/or contact guard assistance as patient completes activity. Assistance may be provided throughout the activity or intermittently. 3-Partial/Moderate Assistance-helper does LESS THAN HALF the effort. [place] lifts, holds or supports trunk or limbs, but provides less than half the effort. 2-Substantial/Maximal Assistance-helper does MORE THAN HALF the effort. [place] lifts or holds trunk or limbs and provides more than half the effort. 5-Illtegfbz-rfcgjo does ALL the effort. Patient does none of the effort to complete the activity. Or, the assistance of 2 or more helpers is required for the patient to complete the activity. If activity was not attempted, code reason: 7-Patient Refused. 9-Not Applicable-not attempted and the patient did not perform the activity before the current illness, exacerbation or injury. 10-Not Attempted due to Environmental Limitations-(lack of equipment, weather restraints, etc.). 88-Not Attempted due to Medical Conditions or Safety Concerns. Roll Left & Right (QC): 4 Sit to Lying (QC): 4 Lying to Sitting/Side of Bed(Q: 3 Sit to Stand (QC): 4 Chair/Ubs-mm-Alhvo Xfer(QC): 4 Weight Bearing Right Lower Extremity: Right Weight Bearing/Tolerated Gait Training Does the Patient Walk?: Yes Walk 10 feet (QC): 4 Walk 50 ft with 2 Turns(QC): 4 Gait Persons Needed: 1 Gait Assistive Device: FWW w/c to follow, narrow scissored gait, with right heel not touching floor and knee flexed, heavy wt bearing in UEs and labored gait Wheelchair Training Does the Pt Use a Wheelchair?: Yes Wheel 50 ft with 2 turns (QC): 6 Wheel 150 ft (QC): 6 Type of Wheelchair: Manual manages turns and manuevers well for all Exercises Supine Ex: Ankle pumps (HC stretches R 4 x 20 sec), Quad Set, Glut sets, Scooting, Straight leg raise (attempted with neurospasms limiting), Hip abd/add (stretches) Supine Reps: 12 Seated Therapy Exercises: Sit to stand Seated Reps: 5 NuStep Minutes: 10 NuStep Workload: 4 Neuromuscular also leg presses on nustep x 12 Treatments moist heat on posterior aspect right knee with one on one monitoring to attempt stretch with no real results noted to help improve extension etc Assessment Current Status: Fair Progress pts neurological spastic response to stretch and exercise limits progress. PT Short Term Goals Short Term Goals Time Frame: Aug 21, 2019 Roll Left & Right: 4 Sit to lyin Lying to sitting on side of be: 3 Sit to stand: 3 Chair/tyz-hd-jdibz transfer: 4 Walk 10 feet: 4 Walk 50 feet with two turns: 4 PT Fdc Goals Movement Assembly Final Inspector Goals PT Movement Assembly Final Inspector Goals Time Frame: Sep 04, 2019 Roll Left & Right (QC): 4 (SBA) Sit to Lying (QC): 4 (SBA) Lying-Sitting on Side/Bed(QC): 4 (SBA) Sit to Stand (QC): 3 (Cindy) Chair/Pag-hj-Mjolh Xfer(QC): 4 (SBA) Toilet Transfer (QC): 3 (Cindy) Car Transfer (QC): 3 (Cindy) Does the Patient Walk: Yes Walk 10 feet (QC): 4 (SBA) Walk 50ft with 2 Turns (QC): 4 (SBA) Walk 150 ft (QC): 4 (SBA) Walking 10ft on Uneven Surface: 88 1 Step (curb) (QC): 88 4 Steps (QC): 88 12 Steps (QC): 88 Picking up an Object (QC): 88 Does the Pt use WC or Scooter?: Yes Wheel 50 feet with 2 turns (QC: 6 Type: Manual Wheel 150 feet: 6 Type: Manual PT Plan Treatment/Plan Treatment Plan: Continue Plan of Care Treatment Plan: Bed Mobility, Education, Functional Activity Herman, Functional Strength, Group Therapy, Gait, Safety, Therapeutic Exercise, Transfers Treatment Duration: Sep 04, 2019 Frequency: At least 5 of 7 days/Wk (IRF) Estimated Hrs Per Day: 1.5 hours per day Patient and/or Family Agrees t: Yes Safety Risks/Education Patient Education: Gait Training, Transfer Techniques, Correct Positioning, W/C Management, Disease Process, Safety Issues Teaching Recipient: Patient Teaching Methods: Demonstration, Discussion Response to Teaching: Verbalize Understanding, Return Demonstration, Reinforcement Needed Time/GCodes Time In: 915 Time Out: 1015 Total Billed Treatment Time: 60 Total Billed Treatment 1,GT15m,FA15m, WCH 10m,EX20m SAROJ [address] CUTTER Aug 20, 2019 10:19
--- NOTE | 2019-08-20 10:35 | PM&R Progress Note ---
Subjective HPI/CC On Admission Date Seen by Provider: Aug 20, 2019 Time Seen by Provider: 10:45 Subjective/Events-last exam Patient doing better each day Appt Dr Roland on Tue and he may be able to DC prior to that appt then go home from his appt that day [place] in place and doing well DVT PPX with ASA and Lovenox since h/o DVT 1989 so I changed to Eliquis for at least 1 month and DC Lovenox and he was updated Wants to go outside again today if possible Percocet and Baclofen working very well for him SSE cleared out constipation and completely evacuated bowels Tuesday night maintained on laxatives but he may need this again Checked meds and labs Reviewed therapy notes Conferred with land leases and rentals manager of Systems Gastrointestinal: Constipation Musculoskeletal: leg pain Neurological: Weakness, Numbness, Incoordination Objective Exam Vital Signs Vital Signs Date Time Temp Pulse Resp B/P (MAP) Pulse Ox O2 Delivery O2 Flow Rate FiO2 08/20/19 06:00 36.5 69 16 124/71 (88) 98 Room Air Capillary Refill : Less Than 3 SecondsLess Than 3 Seconds General Appearance: No Apparent Distress, WD/WN HEENT: PERRL/EOMI, Normal ENT Inspection, Pharynx Normal Neck: Full Range of Motion, Normal Inspection, Non Tender, Supple, Carotid Bruit Respiratory: Chest Non Tender, Lungs Clear, Normal Breath Sounds, No Accessory Muscle Use, No Respiratory Distress Cardiovascular: Regular Rate, Rhythm, No Edema, No Gallop, No JVD, No Murmur, Normal Peripheral Pulses Gastrointestinal: Normal Bowel Sounds, No Organomegaly, No Pulsatile Mass, Non Tender, Soft Back: Normal Inspection, No CVA Tenderness, No Vertebral Tenderness, Decreased Range of Motion Extremity: Normal Capillary Refill, Normal Inspection, Normal Range of Motion (except right leg), Non Tender, No Calf Tenderness, No Pedal Edema Neurologic/Psychiatric: Alert, Oriented x3, Normal Mood/Affect, Motor Weakness (all extremities 4/5, muscle wasting upper extremities) Skin: Normal Color, Warm/Dry Lymphatic: No Adenopathy Results/Procedures Lab Laboratory Tests 08/20/19 06:10 Patient resulted labs reviewed. FIM Transfers Therapy Code Descriptions/Definitions Functional [place] Measure: 0=Not Assessed/NA 4=Minimal Assistance 1=Total Assistance 5=Supervision or Setup 2=Maximal Assistance 6=Modified [place] 3=Moderate Assistance 7=Complete IndependenceSCALE: Activities may be completed with or without assistive devices. 7-Ritympmbpm-iphcelc completes the activity by him/herself with no assistance from a helper. 5-Set-up or Clean-up Assistance-helper sets up or cleans up; patient completes activity. [place] assists only prior to or following the activity. 4-Supervision or Touching Assistance-helper provides verbal cues and/or touching/steadying and/or contact guard assistance as patient completes activity. Assistance may be provided throughout the activity or intermittently. 3-Partial/Moderate Assistance-helper does LESS THAN HALF the effort. [place] lifts, holds or supports trunk or limbs, but provides less than half the effort. 2-Substantial/Maximal Assistance-helper does MORE THAN HALF the effort. [place] lifts or holds trunk or limbs and provides more than half the effort. 0-Kvaxaisae-fbzkkp does ALL the effort. Patient does none of the effort to complete the activity. Or, the assistance of 2 or more helpers is required for the patient to complete the activity. If activity was not attempted, code reason: 7-Patient Refused. 9-Not Applicable-not attempted and the patient did not perform the activity before the current illness, exacerbation or injury. 10-Not Attempted due to Environmental Limitations-(lack of equipment, weather restraints, etc.). 88-Not Attempted due to Medical Conditions or Safety Concerns. Roll Left to Right (QC): 4 Sit to Lying (QC): 4 Sit to Stand (QC): 4 Chair/Igh-nb-Dhaxq Xfer(QC): 4 Car Transfer (QC): 2 Gait Training Does the Patient Walk?: Yes Distance: 150 ft, 30 ft, 50 ft Walk 10 feet (QC): 4 Walk 50 ft with 2 Turns(QC): 4 Walk 150 ft (QC): 88 Walking 10ft/uneven surface-QC: 88 Gait Persons Needed: 1 Gait Assistive Device: FWW Wheelchair Training Does the Pt Use a Wheelchair?: Yes Distance: 100' Wheel 50 ft with 2 turns (QC): 6 Wheel 150 ft (QC): 6 Type of Wheelchair: Manual Stair Training 1 Step (curb) (QC): 88 4 Steps (QC): 88 12 Steps (QC): 88 Balance Picking up an Object (QC): 88 Mental Status/Objective Comprehension: 7 Expression: 7 Social Interaction: 7 Problem Solvin Memory: 7 ADL-Treatment Eating (QC): 6 Oral Hygiene (QC): 6 Shower/Bathe Self (QC): 4 (CGA on shower bench for dymnamic movements.) Upper Body Dressing (QC): 5 Lower Body Dressing (QC): 4 (SBA and increased time, with use of AE to doff shorts and don shorts at bed level in supine position.) On/Off Footwear (QC): 5 Toileting Hygiene (QC): 7 Toilet Transfer (QC): 7 Assessment/Plan Assessment and Plan Assess & Plan/Chief Complaint Assessment: s/p right total knee replacement POD # 13 h/o DVT Spinal cord injury hx C4-C6 1989 Muscle spasms severe and incapacitating acute on chronic Neurogenic bladder Colon atony GERD Acute hyponatremia DVT PPx with ASA and Lovenox Plan: Lovenox transitioned to OAC for DVT PPx Wheelchair mobility along with walking as much as possible Pain control IRF protocol Bowel and bladder management Ortho appt upon DC (1) Status post right knee replacement (2) History of spinal cord injury (3) Muscle spasm (4) Neurogenic bladder (5) Colon atonic (6) Muscle wasting (7) Hyponatremia (8) History of DVT (deep vein thrombosis) (9) DVT prophylaxis (10) Chronic GERD HILARIO FAIRBANKS DO Aug 20, 2019 10:35
--- NOTE | 2019-08-20 13:32 | Occupational Ther Daily Note ---
OT Current Status-Daily Note Subjective Pt. reports tightness in right hamstring. No pain level reported. Appearance Pt. up in wheelchair when OT entered room. Agrees to work with OT. Mental Status/Objective Patient Orientation: Person, Place, Time, Situation ADL-Treatment Therapy Code Descriptions/Definitions Functional [place] Measure: 0=Not Assessed/NA 4=Minimal Assistance 1=Total Assistance 5=Supervision or Setup 2=Maximal Assistance 6=Modified [place] 3=Moderate Assistance 7=Complete IndependenceSCALE: Activities may be completed with or without assistive devices. 2-Byzvgcclbu-mcpotpm completes the activity by him/herself with no assistance from a helper. 5-Set-up or Clean-up Assistance-helper sets up or cleans up; patient completes activity. [place] assists only prior to or following the activity. 4-Supervision or Touching Assistance-helper provides verbal cues and/or touching/steadying and/or contact guard assistance as patient completes activity. Assistance may be provided throughout the activity or intermittently. 3-Partial/Moderate Assistance-helper does LESS THAN HALF the effort. [place] lifts, holds or supports trunk or limbs, but provides less than half the effort. 2-Substantial/Maximal Assistance-helper does MORE THAN HALF the effort. [place] lifts or holds trunk or limbs and provides more than half the effort. 6-Jcubgdbbn-arsrxs does ALL the effort. Patient does none of the effort to complete the activity. Or, the assistance of 2 or more helpers is required for the patient to complete the activity. If activity was not attempted, code reason: 7-Patient Refused. 9-Not Applicable-not attempted and the patient did not perform the activity before the current illness, exacerbation or injury. 10-Not Attempted due to Environmental Limitations-(lack of equipment, weather restraints, etc.). 88-Not Attempted due to Medical Conditions or Safety Concerns. Oral Hygiene (QC): 6 (Mod I at sink at wheelchair level.) Shower/Bathe Self (QC): 4 (SBA seated on shower chair.) Upper Body Dressing (QC): 5 Lower Body Dressing (QC): 3 (Pt. able to don shorts over feet and up to thighs. Pt. lifted self in wheelchair, in wheelchair push up position, while OT donned shorts over hips.) On/Off Footwear: 4 (SBA to doff/don slipper socks with AE.) Pt. utilized large shower room. Transferred from wheelchair-shower bench with min assist in sliding motion. Pt. able to undress while seated, including doffing shorts over hips. Pt. utilized AE. After shower, pt dried and then donned all clothing, except for shorts over hips. Transferred back to wheelchair with mod assist in stand/pivot motion. Pt. pushed up from wheelchair while OT donned over hips. Pt. self propelled to therapy gym and completed 10 minutes on arm bike to increase overall strength/endurance. Propelled to parallel bar and worked on standing x 2, with min assist for sit-stand at bar. Pt. unable to fully bear weight on right LE due to increased hamstring tightness/spasms. Pt. unable to extend right knee. Pt. transferred back to wheelchair and propelled back to room. All needs met in room. Education OT Patient Education: Correct positioning, Exercise program, Modified ADL techniques, Progress toward Goal/Update tx plan, Purpose of tx/functional activities, Reviewed precautions, Rehab process Teaching Recipient: Patient Teaching Methods: Demonstration, Discussion Response to Teaching: Verbalize Understanding, Return Demonstration OT Short Term Goals Short Term Goals Time Frame: Aug 21, 2019 Eatin Oral hygiene: 6 Toileting hygiene: 4 Shower/bathe self: 4 Upper body dressin Lower body dressin Putting on/taking off footwear: 3 OT Mcc Goals Mcc Goals Time Frame: Aug 28, 2019 Eating (QC): 6 Oral Hygiene (QC): 6 Toileting Hygiene (QC): 6 Shower/Bathe Self (QC): 5 Upper Body Dressing (QC): 6 Lower Body Dressing (QC): 6 On/Off Footwear (QC): 6 Additional Goals: 1-Demonstrate ADL Tasks, 2-Verbalize Understanding, 3- ImproveStrength/[place] 1=Demonstrate adherence to instructed precautions during ADL tasks. 2=Patient will verbalize/demonstrate understanding of assistive devices/modifications for ADL. 3=Patient will improve strength/tolerance for activity to enable patient to perform ADL's. OT Education/Plan Problem List/Assessment Assessment: Decreased Activ Tolerance, Impaired I ADL's, Impaired Self-Care Skills Discharge Recommendations Plan/Recommendations: Continue POC Therapy Discharge Recommendati: Home & Family, Post Acute OT Equpiment Recommendations-D/C: Extended Bath Bench, Hip Kit Treatment Plan/Plan of Care Treatment,Training & Education: Yes Patient would benefit from OT for education, treatment and training to promote independence in ADL's, mobility, safety and/or upper extremity function for ADL's. Plan of Care: ADL Retraining, Functional Mobility, Group Exercise/Act as Ind, UE Funct Exercise/Act Treatment Duration: Aug 28, 2019 Frequency: At least 5 of 7 days/Wk (IRF) Estimated Hrs Per Day: 1.5 hours per day Agreement: Yes Rehab Potential: Good Time/GCodes Start Time: 10:20 Stop Time: 11:50 Total Time Billed (hr/min): 90 Billed Treatment Time 1, ADL x 60minutes, Ex x 15minutes, FA x 15minutes GHAZALA COSTA OT Aug 20, 2019 13:32
--- NOTE | 2019-08-20 13:53 | Physical Therapy Daily Note ---
PT Daily Note-Current Subjective Pt. agrees to rx, states he feels he needs to do Nustep for warm up and attempt to extend right knee and supine stretching exercises. Pt. c/o pain at 7/10 and wants meds after back in room as well as donning his knee ext brace. Pain Numeric Pain Scale: 7 Location: Right Location Body Site: Knee Pain Description: Pressure Mental Status Patient Orientation: Normal For Age Attachments: Other-See Comments (knee immoblizer aplied after Rx to right ) Transfers SCALE: Activities may be completed with or without assistive devices. 6-Ibeukhsjzx-tmohhzn completes the activity by him/herself with no assistance from a helper. 5-Set-up or Clean-up Assistance-helper sets up or cleans up; patient completes activity. [place] assists only prior to or following the activity. 4-Supervision or Touching Assistance-helper provides verbal cues and/or touching/steadying and/or contact guard assistance as patient completes activity. Assistance may be provided throughout the activity or intermittently. 3-Partial/Moderate Assistance-helper does LESS THAN HALF the effort. [place] lifts, holds or supports trunk or limbs, but provides less than half the effort. 2-Substantial/Maximal Assistance-helper does MORE THAN HALF the effort. [place] lifts or holds trunk or limbs and provides more than half the effort. 8-Fmmvhfakx-kvtoqr does ALL the effort. Patient does none of the effort to complete the activity. Or, the assistance of 2 or more helpers is required for the patient to complete the activity. If activity was not attempted, code reason: 7-Patient Refused. 9-Not Applicable-not attempted and the patient did not perform the activity before the current illness, exacerbation or injury. 10-Not Attempted due to Environmental Limitations-(lack of equipment, weather restraints, etc.). 88-Not Attempted due to Medical Conditions or Safety Concerns. SPTs w/c to bed, w/c to nustep. w/c to Rx mat all toward left with mod assist required. Pt. moves self in bed using rails and UEs with much effort Weight Bearing Right Lower Extremity: Right Weight Bearing/Tolerated Gait Training Gait Assistive Device: FWW 4-5 ft with FWW min to CGA Wheelchair Training mod I in w/c use Exercises Supine Ex: Ankle pumps (HC stretch 4 x 15 s), Quad Set, Rolling, Heel Slides (right knee ext assisted) Supine Reps: 12 NuStep Minutes: 9 NuStep Workload: 2 Treatments prone position for right knee extension with ext measured at 12 degrees, in supine measures 35degrees, when pressure attempted for extension pt. has spastic response Assessment Current Status: Fair Progress PT Short Term Goals Short Term Goals Time Frame: Aug 21, 2019 Roll Left & Right: 4 Sit to lyin Lying to sitting on side of be: 3 Sit to stand: 3 Chair/jdc-zp-apoxj transfer: 4 Walk 10 feet: 4 Walk 50 feet with two turns: 4 PT Spinning Machine Tender Goals Spinning Machine Tender Goals PT Senior Care Goals Time Frame: Sep 04, 2019 Roll Left & Right (QC): 4 (SBA) Sit to Lying (QC): 4 (SBA) Lying-Sitting on Side/Bed(QC): 4 (SBA) Sit to Stand (QC): 3 (Cindy) Chair/Mhm-ge-Uumbs Xfer(QC): 4 (SBA) Toilet Transfer (QC): 3 (Cindy) Car Transfer (QC): 3 (Cindy) Does the Patient Walk: Yes Walk 10 feet (QC): 4 (SBA) Walk 50ft with 2 Turns (QC): 4 (SBA) Walk 150 ft (QC): 4 (SBA) Walking 10ft on Uneven Surface: 88 1 Step (curb) (QC): 88 4 Steps (QC): 88 12 Steps (QC): 88 Picking up an Object (QC): 88 Does the Pt use WC or Scooter?: Yes Wheel 50 feet with 2 turns (QC: 6 Type: Manual Wheel 150 feet: 6 Type: Manual PT Plan Treatment/Plan Treatment Plan: Continue Plan of Care Treatment Plan: Bed Mobility, Education, Functional Activity Herman, Functional Strength, Group Therapy, Gait, Safety, Therapeutic Exercise, Transfers Treatment Duration: Sep 04, 2019 Frequency: At least 5 of 7 days/Wk (IRF) Estimated Hrs Per Day: 1.5 hours per day Patient and/or Family Agrees t: Yes Safety Risks/Education Patient Education: Transfer Techniques, Correct Positioning, Disease Process, Safety Issues Teaching Recipient: Patient Teaching Methods: Demonstration, Discussion Response to Teaching: Verbalize Understanding, Return Demonstration, Reinforcement Needed Time/GCodes Time In: 1305 Time Out: 1350 Total Billed Treatment Time: 45 Total Billed Treatment 1,EX30m,FA15m SAROJ CHAPMAN BICYCLE I ASSEMBLER Aug 20, 2019 13:53
[2019-08-20] MEDS: oxyCODONE/APAP 5/325MG (PERCOCET 5) TABLET PO PRN ×2 (14:10→20:15)
[2019-08-20] MEDS: BISACODYL 10 MG SUPP (DULCOLAX) PR PRN (14:10)
--- NOTE | 2019-08-20 15:30 | NUR ---
CM/SS CONCURRENT DOCUMENTATION Patient has ortho followup appointment Tuesday08/22/19. Discussed with patient about discharging to home that date. He does not have his ramp built yet at his home, he will explore with his employer about timeframe for completion. Patient indicated much difficulty accessing vehicle when his family transported him from [place] to [facility]. ARU team can assist getting in car and appointment hospital can assist getting out. All plans to be determined depending on ramp and wheelchair for home use.
[2019-08-20 16:22] VITALS: BP 105/69
--- NOTE | 2019-08-20 17:08 | NUR ---
New order from Dr. Hogue to increase Senokot to 2 BID
[2019-08-20] MEDS: APIXABAN 2.5 MG (ELIQUIS) TABLET PO SCH (20:15)
[2019-08-20] MEDS: GABAPENTIN 300 MG (NEURONTIN) CAP PO SCH (20:15)
[2019-08-21 06:00] VITALS: BP 111/70
[2019-08-21] MEDS: ASPIRIN 81 MG CHEW (CHILDREN'S ASA) PO SCH (09:32)
[2019-08-21] MEDS: BACLOFEN 10 MG (LIORESAL) TAB PO SCH ×3 (09:33→20:20)
[2019-08-21] MEDS: polyethylene glycoL POWDER 17 GM (MIRALAX) PACK PO SCH ×2 (09:33→20:57)
[2019-08-21] MEDS: APIXABAN 2.5 MG (ELIQUIS) TABLET PO SCH ×2 (09:33→20:20)
[2019-08-21] MEDS: SENNA W/DOCUSATE (SENOKOT S) TABLET PO SCH ×2 (09:33→20:58)
--- NOTE | 2019-08-21 10:22 | PM&R Progress Note ---
Subjective HPI/CC On Admission Date Seen by Provider: Aug 21, 2019 Time Seen by Provider: 10:30 Subjective/Events-last exam Patient doing better each day and is ready for DC tomorrow before he sees Dr Roland at [address] in [place] in place and doing well and will be managed with Dr Roland DVT PPX with ASA and Lovenox since h/o DVT 1989 so I changed to Eliquis for at least 1 month and DC Lovenox and he was updated No falls bur remains at risk Percocet and Baclofen working very well for him SSE helped resolve severe constipation Checked meds and labs Reviewed therapy notes Conferred with rail transit operator of Systems General: Fatigue Musculoskeletal: leg pain Objective Exam Vital Signs Vital Signs Date Time Temp Pulse Resp B/P (MAP) Pulse Ox O2 Delivery O2 Flow Rate FiO2 08/22/19 05:14 37.1 71 18 110/69 (83) 95 Room Air Capillary Refill : Less Than 3 SecondsLess Than 3 Seconds General Appearance: No Apparent Distress, WD/WN HEENT: PERRL/EOMI, Normal ENT Inspection, Pharynx Normal Neck: Full Range of Motion, Normal Inspection, Non Tender, Supple, Carotid Bruit Respiratory: Chest Non Tender, Lungs Clear, Normal Breath Sounds, No Accessory Muscle Use, No Respiratory Distress Cardiovascular: Regular Rate, Rhythm, No Edema, No Gallop, No JVD, No Murmur, Normal Peripheral Pulses Gastrointestinal: Normal Bowel Sounds, No Organomegaly, No Pulsatile Mass, Non Tender, Soft Back: Normal Inspection, No CVA Tenderness, No Vertebral Tenderness, Decreased Range of Motion Extremity: Normal Capillary Refill, Normal Inspection, Normal Range of Motion (except right leg), Non Tender, No Calf Tenderness, No Pedal Edema Neurologic/Psychiatric: Alert, Oriented x3, Normal Mood/Affect, Motor Weakness (all extremities 4/5, muscle wasting upper extremities) Skin: Normal Color, Warm/Dry Lymphatic: No Adenopathy Results/Procedures Lab Patient resulted labs reviewed. FIM Transfers Therapy Code Descriptions/Definitions Functional [place] Measure: 0=Not Assessed/NA 4=Minimal Assistance 1=Total Assistance 5=Supervision or Setup 2=Maximal Assistance 6=Modified Clifford 3=Moderate Assistance 7=Complete IndependenceSCALE: Activities may be completed with or without assistive devices. 2-Ovgyelrizw-covzztn completes the activity by him/herself with no assistance from a helper. 5-Set-up or Clean-up Assistance-helper sets up or cleans up; patient completes activity. [place] assists only prior to or following the activity. 4-Supervision or Touching Assistance-helper provides verbal cues and/or touching/steadying and/or contact guard assistance as patient completes activity. Assistance may be provided throughout the activity or intermittently. 3-Partial/Moderate Assistance-helper does LESS THAN HALF the effort. [place] lifts, holds or supports trunk or limbs, but provides less than half the effort. 2-Substantial/Maximal Assistance-helper does MORE THAN HALF the effort. [place] lifts or holds trunk or limbs and provides more than half the effort. 4-Kqjfmyyur-eqsjyp does ALL the effort. Patient does none of the effort to complete the activity. Or, the assistance of 2 or more helpers is required for the patient to complete the activity. If activity was not attempted, code reason: 7-Patient Refused. 9-Not Applicable-not attempted and the patient did not perform the activity before the current illness, exacerbation or injury. 10-Not Attempted due to Environmental Limitations-(lack of equipment, weather restraints, etc.). 88-Not Attempted due to Medical Conditions or Safety Concerns. Roll Left to Right (QC): 4 Sit to Lying (QC): 4 Sit to Stand (QC): 4 Chair/Xnu-zy-Ssrht Xfer(QC): 4 Car Transfer (QC): 2 Gait Training Does the Patient Walk?: Yes Distance: 150 ft, 30 ft, 50 ft Walk 10 feet (QC): 4 Walk 50 ft with 2 Turns(QC): 4 Walk 150 ft (QC): 88 Walking 10ft/uneven surface-QC: 88 Gait Persons Needed: 1 Gait Assistive Device: FWW Wheelchair Training Does the Pt Use a Wheelchair?: Yes Distance: 100' Wheel 50 ft with 2 turns (QC): 6 Wheel 150 ft (QC): 6 Type of Wheelchair: Manual Stair Training 1 Step (curb) (QC): 88 4 Steps (QC): 88 12 Steps (QC): 88 Balance Picking up an Object (QC): 88 Mental Status/Objective Comprehension: 7 Expression: 7 Social Interaction: 7 Problem Solvin Memory: 7 ADL-Treatment Eating (QC): 6 Oral Hygiene (QC): 6 (Mod I at sink at wheelchair level.) Shower/Bathe Self (QC): 4 (SBA seated on shower chair.) Upper Body Dressing (QC): 5 Lower Body Dressing (QC): 3 (Pt. able to don shorts over feet and up to thighs. Pt. lifted self in wheelchair, in wheelchair push up position, while OT donned shorts over hips.) On/Off Footwear (QC): 4 (SBA to doff/don slipper socks with AE.) Toileting Hygiene (QC): 7 Toilet Transfer (QC): 7 Assessment/Plan Assessment and Plan Assess & Plan/Chief Complaint Assessment: s/p right total knee replacement POD # 14 h/o DVT Spinal cord injury hx C4-C6 1989 Muscle spasms severe and incapacitating acute on chronic Neurogenic bladder Colon atony GERD Acute hyponatremia DVT PPx with ASA and Lovenox Plan: Lovenox transitioned to OAC for DVT PPx Wheelchair mobility along with walking as much as possible Pain control IRF protocol Bowel and bladder management Ortho appt upon DC (1) Status post right knee replacement (2) History of spinal cord injury (3) Muscle spasm (4) Neurogenic bladder (5) Colon atonic (6) Muscle wasting (7) Hyponatremia (8) History of DVT (deep vein thrombosis) (9) DVT prophylaxis (10) Chronic GERD HILARIO FAIRBANKS DO Aug 21, 2019 10:22
--- NOTE | 2019-08-21 10:39 | Occupational Ther Daily Note ---
OT Current Status-Daily Note Subjective Pt sitting in w/c, agrees to treatment. Pt reports 5/10 pain in right knee. ADL-Treatment Pt maneuvered around room in w/c without assist. Sponge bath completed seated at sink with increased time. Pt completed bathing with SBA. Doff/don shirt with set up. Pt used sock aid to don socks with set up. Grooming tasks completed with modified independence. Occasional rest breaks taken during ADL tasks. Pt reports he is having a ramp built at home and it should be completed today. States he has all the equipment needed for home. Pt practiced transfer to toilet to increase independence and safety. Transfer to toilet with SBA using grab bar. CGA required for transfer back to w/c secondary to w/c seat being higher than toilet. Pt transferred w/c<-> EOB with FWW. Sit to supine with SBA. Pt requires assist for trunk when returning to sitting secondary to decreased core strength. Therapy Code Descriptions/Definitions Functional [place] Measure: 0=Not Assessed/NA 4=Minimal Assistance 1=Total Assistance 5=Supervision or Setup 2=Maximal Assistance 6=Modified [place] 3=Moderate Assistance 7=Complete IndependenceSCALE: Activities may be completed with or without assistive devices. 0-Mmajhyevyv-rmnyncj completes the activity by him/herself with no assistance from a helper. 5-Set-up or Clean-up Assistance-helper sets up or cleans up; patient completes activity. [place] assists only prior to or following the activity. 4-Supervision or Touching Assistance-helper provides verbal cues and/or touching/steadying and/or contact guard assistance as patient completes activity. Assistance may be provided throughout the activity or intermittently. 3-Partial/Moderate Assistance-helper does LESS THAN HALF the effort. [place] lifts, holds or supports trunk or limbs, but provides less than half the effort. 2-Substantial/Maximal Assistance-helper does MORE THAN HALF the effort. [place] lifts or holds trunk or limbs and provides more than half the effort. 7-Vnjzovdbt-nndclg does ALL the effort. Patient does none of the effort to complete the activity. Or, the assistance of 2 or more helpers is required for the patient to complete the activity. If activity was not attempted, code reason: 7-Patient Refused. 9-Not Applicable-not attempted and the patient did not perform the activity before the current illness, exacerbation or injury. 10-Not Attempted due to Environmental Limitations-(lack of equipment, weather restraints, etc.). 88-Not Attempted due to Medical Conditions or Safety Concerns. Eating (QC): 6 (per report) Upper Body Dressing (QC): 5 On/Off Footwear: 5 Toilet Transfer (QC): 4 (CGA) Other Treatment Pt performed w/c mobility to therapy gym without assist. Arm bike x15 minutes to increase overall strength and activity tolerance needed for functional task completion. Pt performed task with mild resistance and steady pace. One rest break taken during task. Pt returned to room, sitting in w/c with needs met after session. OT Short Term Goals Short Term Goals Time Frame: Aug 21, 2019 Eatin Oral hygiene: 6 Toileting hygiene: 4 Shower/bathe self: 4 Upper body dressin Lower body dressin Putting on/taking off footwear: 3 OT Penitentiary Goals Refining Engineer Goals Time Frame: Aug 28, 2019 Eating (QC): 6 Oral Hygiene (QC): 6 Toileting Hygiene (QC): 6 Shower/Bathe Self (QC): 5 Upper Body Dressing (QC): 6 Lower Body Dressing (QC): 6 On/Off Footwear (QC): 6 Additional Goals: 1-Demonstrate ADL Tasks, 2-Verbalize Understanding, 3-ImproveStrength/Herman 1=Demonstrate adherence to instructed precautions during ADL tasks. 2=Patient will verbalize/demonstrate understanding of assistive devices/modifications for ADL. 3=Patient will improve strength/tolerance for activity to enable patient to perform ADL's. OT Education/Plan Discharge Recommendations Plan/Recommendations: Continue POC Treatment Plan/Plan of Care Patient would benefit from OT for education, treatment and training to promote independence in ADL's, mobility, safety and/or upper extremity function for ADL's. Plan of Care: ADL Retraining, Functional Mobility, Group Exercise/Act as Ind, UE Funct Exercise/Act Treatment Duration: Aug 28, 2019 Frequency: At least 5 of 7 days/Wk (IRF) Estimated Hrs Per Day: 1.5 hours per day Agreement: Yes Rehab Potential: Good Time/GCodes Start Time: 08:00 Stop Time: 09:30 Total Time Billed (hr/min): 90 Billed Treatment Time 1 visit, ADLx4(60minutes), EX(20minutes), FA(10minutes) NIK HOLMAN OT Aug 21, 2019 10:39
--- NOTE | 2019-08-21 11:04 | Physical Therapy Daily Note ---
PT Daily Note-Current Subjective Patient in pre tx, agrees to PT, has no complaints of pain at rest. Patient is tearful during treatment because he wants to go home very much, social professionals notified. Appearance Patient in at desk for work post tx, instructed that when done to get back into bed and have his knee immobilizer put on after knee stretching. Mental Status Patient Orientation: Normal For Age Transfers SCALE: Activities may be completed with or without assistive devices. 9-Mmqwtucjvh-dsigsus completes the activity by him/herself with no assistance from a helper. 5-Set-up or Clean-up Assistance-helper sets up or cleans up; patient completes activity. [place] assists only prior to or following the activity. 4-Supervision or Touching Assistance-helper provides verbal cues and/or touching/steadying and/or contact guard assistance as patient completes activity. Assistance may be provided throughout the activity or intermittently. 3-Partial/Moderate Assistance-helper does LESS THAN HALF the effort. [place] lifts, holds or supports trunk or limbs, but provides less than half the effort. 2-Substantial/Maximal Assistance-helper does MORE THAN HALF the effort. [place] lifts or holds trunk or limbs and provides more than half the effort. 0-Afcbcvrbs-lwkznm does ALL the effort. Patient does none of the effort to complete the activity. Or, the assistance of 2 or more helpers is required for the patient to complete the activity. If activity was not attempted, code reason: 7-Patient Refused. 9-Not Applicable-not attempted and the patient did not perform the activity before the current illness, exacerbation or injury. 10-Not Attempted due to Environmental Limitations-(lack of equipment, weather restraints, etc.). 88-Not Attempted due to Medical Conditions or Safety Concerns. Roll Left & Right (QC): 5 Sit to Lying (QC): 3 Lying to Sitting/Side of Bed(Q: 3 Sit to Stand (QC): 4 Chair/Jcl-of-Anpko Xfer(QC): 4 Car Transfer (QC): 4 Patient performs bed mobility with SBA, supine <-> sit min assist, sit <-> stand CGA, transfers CGA, car transfer CGA. Patient has a tendency to sit forcefully into chair or wheelchair. Weight Bearing Right Lower Extremity: Right Weight Bearing/Tolerated Gait Training Distance: 120'x2 Walk 10 feet (QC): 4 Walk 50 ft with 2 Turns(QC): 4 Walking 10ft/uneven surface-QC: 4 Gait Persons Needed: 1 Gait Assistive Device: FWW Patient can ambulate 120' with a rolling walker with CGA (including 50' with at least 2 turns of 90 degrees and 10' over an uneven surface). Patient ambulates slowly, has flexed knees bilaterally, no heel strike on the right side, mostly s lides feet across floor, narrow MIGUELITO. Wheelchair Training Does the Pt Use a Wheelchair?: Yes Wheel 50 ft with 2 turns (QC): 6 Wheel 150 ft (QC): 6 Type of Wheelchair: Manual Stair Training 1 Step (curb) (QC): 88 4 Steps (QC): 88 12 Steps (QC): 88 Balance Picking up an Object (QC): 88 Exercises Manual knee extension stretching (supine), patient was able to get to approx 10 degrees from full extension. NuStep Minutes: 15 NuStep Workload: 5 Treatments bed mobility and transfers, ambulation, LE ROM and strengthening, WC training, car transfer Assessment Current Status: Fair Progress improved ambulation but patient had worse hamstring spasms and increased tone, very hard to improve knee extension PT Short Term Goals Short Term Goals Time Frame: Aug 21, 2019 Roll Left & Right: 4 Sit to lyin Lying to sitting on side of be: 3 Sit to stand: 3 Chair/laj-dc-khwwa transfer: 4 Walk 10 feet: 4 Walk 50 feet with two turns: 4 PT Frame Fixer Goals Frame Fixer Goals PT Halfway Goals Time Frame: Sep 04, 2019 Roll Left & Right (QC): 4 (SBA) Sit to Lying (QC): 4 (SBA) Lying-Sitting on Side/Bed(QC): 4 (SBA) Sit to Stand (QC): 3 (Cindy) Chair/Iml-dw-Tzcrw Xfer(QC): 4 (SBA) Toilet Transfer (QC): 3 (Cindy) Car Transfer (QC): 3 (Cindy) Does the Patient Walk: Yes Walk 10 feet (QC): 4 (SBA) Walk 50ft with 2 Turns (QC): 4 (SBA) Walk 150 ft (QC): 4 (SBA) Walking 10ft on Uneven Surface: 88 1 Step (curb) (QC): 88 4 Steps (QC): 88 12 Steps (QC): 88 Picking up an Object (QC): 88 Does the Pt use WC or Scooter?: Yes Wheel 50 feet with 2 turns (QC: 6 Type: Manual Wheel 150 feet: 6 Type: Manual PT Plan Problem List Problem List: Activity Tolerance, Functional Strength, Safety, Balance, Gait, Transfer, Bed Mobility, ROM Treatment/Plan Treatment Plan: Continue Plan of Care Treatment Plan: Bed Mobility, Education, Functional Activity Herman, Functional Strength, Group Therapy, Gait, Safety, Therapeutic Exercise, Transfers Treatment Duration: Sep 04, 2019 Frequency: At least 5 of 7 days/Wk (IRF) Estimated Hrs Per Day: 1.5 hours per day Patient and/or Family Agrees t: Yes Safety Risks/Education Patient Education: Gait Training, Transfer Techniques, Correct Positioning, W/C Management, Safety Issues Teaching Recipient: Patient Teaching Methods: Demonstration, Discussion Response to Teaching: Reinforcement Needed Time/GCodes Time In: 1000 Time Out: 1100 Total Billed Treatment Time: 60 Total Billed Treatment 1 visit GT 20' EX 25' FA 15' OFELIA BURCIAGA PT Aug 21, 2019 11:04
--- NOTE | 2019-08-21 13:30 | NUR ---
"RD ASSESSMENT PMHx: GERD; chronic constipation; s/p TKA PT INTERACTION: Pt was awake and pleasant during nutrition follow-up. Pt states he has been eating fairly well since last assessment. Note avg PO intake 64% x4d, per chart review. Pt states no issues with n/v/c/d since last assessment. Note last BM was 08/19, and pt currently on bowel regimen of Senna BID; and Miralax BID, per chart review. ABNORMAL NUTRITION-RELATED LAB VALUES All labs WNL at this time Est. kcal needs: 8757-5509 kcal | 20-25 kcal/kg Est. Pro needs: 91-111 g Pro | 1.0-1.2 g Pro/kg PES STATEMENT: Inadequate oral intake (NI-2.1) related to loss of appetite as evidenced by pt interview | avg PO intake 64% x4d INTERVENTION: Continue with current diet order of Regular diet. Pt may benefit from nutrition supplementation if PO intake declines. Will continue to follow and reassess as pt needs, intake, and status change. MONITOR/EVALUATE: PO Intake; Plan of Care; Hydration Status; Weight Status; Lab Values Carol Stack, MS, RD, LD"
--- NOTE | 2019-08-21 13:53 | NUR ---
CM/SS DISCHARGE PLANNING Patient will be taken by his son tomorrow to his follow up assessment with Dr. Luis Enrique Roland MD, [facility]. Son will be here at 0900, posted on communication board and updated Unit RN. Patient has requested to discharge and return home in conjunction with this exit for his appointment. Physician and team discussed and, in consideration of patient's emotional plea, agreed to formulate an appropriate post hospital care plan. HHC: Discussed agencies in patient's service area and he indicated his preferred to be [facility], [facility]. Referral initiated so that benefits could be authorized through [employer] insurance and patient could be scheduled for services. DME: Patient's employer staff are building him a home ramp today. He continues to indicate no new DME needed, he has a FWW and a borrowed wheelchair. He also has a 4WW with seat, which he has agreed not to use at this time because of safety concerns. Because of his prior injuries, he has other equipment to maximize his daily functioning and independence. Finalize all plans tomorrow. Addendum: 08/21/19 at 1457 by YAMIL CHENG Rx: Confirmed with [facility] that patient's Eliquis is covered, OOP is $50, overall sánchez was $460.
--- NOTE | 2019-08-21 14:02 | Physical Therapy Daily Note ---
PT Daily Note-Current Subjective Patient in WC in room pre tx, agrees to PT, has no complaints of pain at rest. Appearance Patient in bed post tx with nurse call, phone, tray, all needs met. Has right side knee immobilizer on and knee stretched into extension before putting it on. Mental Status Patient Orientation: Normal For Age Transfers SCALE: Activities may be completed with or without assistive devices. 5-Krkrymiigs-sblypux completes the activity by him/herself with no assistance from a helper. 5-Set-up or Clean-up Assistance-helper sets up or cleans up; patient completes activity. Clifton assists only prior to or following the activity. 4-Supervision or Touching Assistance-helper provides verbal cues and/or touching/steadying and/or contact guard assistance as patient completes activity. Assistance may be provided throughout the activity or intermittently. 3-Partial/Moderate Assistance-helper does LESS THAN HALF the effort. Clifton lifts, holds or supports trunk or limbs, but provides less than half the effort. 2-Substantial/Maximal Assistance-helper does MORE THAN HALF the effort. Clifton lifts or holds trunk or limbs and provides more than half the effort. 6-Zbahasasn-waydmi does ALL the effort. Patient does none of the effort to complete the activity. Or, the assistance of 2 or more helpers is required for the patient to complete the activity. If activity was not attempted, code reason: 7-Patient Refused. 9-Not Applicable-not attempted and the patient did not perform the activity before the current illness, exacerbation or injury. 10-Not Attempted due to Environmental Limitations-(lack of equipment, weather restraints, etc.). 88-Not Attempted due to Medical Conditions or Safety Concerns. Roll Left & Right (QC): 4 Sit to Lying (QC): 3 Lying to Sitting/Side of Bed(Q: 3 Sit to Stand (QC): 4 Chair/Abl-gt-Bgcdc Xfer(QC): 4 Weight Bearing Right Lower Extremity: Right Weight Bearing/Tolerated Gait Training Distance: 150'x2 Walk 10 feet (QC): 4 Walk 50 ft with 2 Turns(QC): 4 Walk 150 ft (QC): 4 Gait Persons Needed: 1 Gait Assistive Device: FWW CGA, no LOB but occasional moments of unsteadiness but did not need assist. Patient ambulates with bilateral flexed knees, narrow MIGUELITO, slow, no heel strike on the right side, mostly slides feet along the floor. Exercises Supine Ex: Heel Slides, Short Arc Quads Supine Reps: 10 Supine knee extension manual stretching 2min x 2. Patient had many hamstring spasms and right hip pain during stretching and exercises making them very difficult and limiting effectiveness. Treatments ambulation, bed mobility and transfers, LE exercise Assessment Current Status: Fair Progress slowly improving ambulation, poor progress with knee extension PT Short Term Goals Short Term Goals Time Frame: Aug 21, 2019 Roll Left & Right: 4 Sit to lyin Lying to sitting on side of be: 3 Sit to stand: 3 Chair/hhi-wi-opnas transfer: 4 Walk 10 feet: 4 Walk 50 feet with two turns: 4 PT Half-Way Goals Mitering Machine Operator Goals PT Mitering Machine Operator Goals Time Frame: Sep 04, 2019 Roll Left & Right (QC): 4 (SBA) Sit to Lying (QC): 4 (SBA) Lying-Sitting on Side/Bed(QC): 4 (SBA) Sit to Stand (QC): 3 (Cindy) Chair/Adt-xq-Efmsw Xfer(QC): 4 (SBA) Toilet Transfer (QC): 3 (Cindy) Car Transfer (QC): 3 (Cindy) Does the Patient Walk: Yes Walk 10 feet (QC): 4 (SBA) Walk 50ft with 2 Turns (QC): 4 (SBA) Walk 150 ft (QC): 4 (SBA) Walking 10ft on Uneven Surface: 88 1 Step (curb) (QC): 88 4 Steps (QC): 88 12 Steps (QC): 88 Picking up an Object (QC): 88 Does the Pt use WC or Scooter?: Yes Wheel 50 feet with 2 turns (QC: 6 Type: Manual Wheel 150 feet: 6 Type: Manual PT Plan Problem List Problem List: Activity Tolerance, Functional Strength, Safety, Balance, Gait, Transfer, Bed Mobility, ROM Treatment/Plan Treatment Plan: Continue Plan of Care Treatment Plan: Bed Mobility, Education, Functional Activity Herman, Functional Strength, Group Therapy, Gait, Safety, Therapeutic Exercise, Transfers Treatment Duration: Sep 04, 2019 Frequency: At least 5 of 7 days/Wk (IRF) Estimated Hrs Per Day: 1.5 hours per day Patient and/or Family Agrees t: Yes Safety Risks/Education Patient Education: Gait Training, Transfer Techniques, Correct Positioning, Safety Issues Teaching Recipient: Patient Teaching Methods: Demonstration, Discussion Response to Teaching: Reinforcement Needed Time/GCodes Time In: 1330 Time Out: 1400 Total Billed Treatment Time: 30 Total Billed Treatment 1 visit GT 15' EX 15' OFELIA BURCIAGA PT Aug 21, 2019 14:02
[2019-08-21] MEDS: oxyCODONE/APAP 5/325MG (PERCOCET 5) TABLET PO PRN ×2 (14:06→20:20)
[2019-08-21] MEDS ORDERED: LACT20SO2 PO (14:30)
[2019-08-21] MEDS ORDERED: BISA10SU8 PR (14:30)
[2019-08-21] MEDS ORDERED: DCS100C PO (14:30)
[2019-08-21] MEDS ORDERED: POLY17PO31 PO (14:30)
[2019-08-21] MEDS ORDERED: APIX2.5T PO (14:30)
[2019-08-21] MEDS ORDERED: BACL10TA PO (14:30)
[2019-08-21] MEDS ORDERED: GABA-488 PO (14:30)
[2019-08-21] MEDS ORDERED: OXYC1TAB87 PO (14:30)
--- NOTE | 2019-08-21 14:33 | D/C HH Face to Face Order ---
D/C Face to Face Orders Reconcile Patient Problems Problems Reviewed?: Yes Instructions for Patient Via [facility], Patient Instructions/FollowUp: Dr Hogue 08/27/19 at 200pm [facility] Physician to follow Patient: Dr Shannan Hogue Discharge Diet for Home: No Restrictions Patient Problems: Right knee replacement h/o spinal cord injury h/o DVT Goals for Patient: [place] Patient Data-Allergies,Ht & Wt Patient Allergies: Coded Allergies: No Known Drug Allergies (Unverified , 10/06/09) Home Health Need/Face to Face Date of Face to Face: Aug 21, 2019 Clinical Findings: Generalized weakness and fatigue, Instability, Muscle weakness, Pain with ambulation, Unsteady gait I have seen Pt mxbb-dl-iezf: Yes Discharged To: Home Diagnosis/Conditions: Right knee replacement h/o spinal cord injury h/o DVT Patient is Homebound due to: Jimy fall risk due to instabilty, Muscle we akness, Pain w/ambulation Homebound Status Due to the above stated illness, injury or surgical procedure (medical condition or diagnosis) and associated clinical findings, the patient is homebound because of his/her inability to leave home except with aid of a supportive device and/or person AND leaving the home requires a considerable and taxing effort or is medically contraindicated. Pt req the following assistanc: Walker, Wheelchair Home Health Nursing Orders Home Health Services Order: [facility]-Evaluate & Treat, Physical Therapy-Evaluate & Treat Certify Stmt I certify that this patient is under my care and that I, a nurse practitioner or a physician; a stores assistant working with me, had a face to face encounter that - meets the physician face to face encounter requirements with this patient as dated. SHANNAN HOGUE DO Aug 21, 2019 14:33
[2019-08-21 16:07] VITALS: BP 99/58
[2019-08-21] MEDS: GABAPENTIN 300 MG (NEURONTIN) CAP PO SCH (20:20)
[2019-08-22 05:14] VITALS: BP 110/69
[2019-08-22] MEDS: SENNA W/DOCUSATE (SENOKOT S) TABLET PO SCH (08:04)
[2019-08-22] MEDS: BACLOFEN 10 MG (LIORESAL) TAB PO SCH (08:04)
[2019-08-22] MEDS: oxyCODONE/APAP 5/325MG (PERCOCET 5) TABLET PO PRN (08:04)
[2019-08-22] MEDS: ASPIRIN 81 MG CHEW (CHILDREN'S ASA) PO SCH (08:04)
[2019-08-22] MEDS: polyethylene glycoL POWDER 17 GM (MIRALAX) PACK PO SCH (08:04)
[2019-08-22] MEDS: APIXABAN 2.5 MG (ELIQUIS) TABLET PO SCH (08:04)
--- NOTE | 2019-08-22 09:15 | NUR ---
DISCHARGE EDUCATION REVIEWED BY CHERRY CHRISTIE. PT LEFT FLOOR AT 0915.
--- NOTE | 2019-08-22 10:41 | Discharge Summary ---
Diagnosis/Chief Complaint Date of Admission Aug 13, 2019 at 16:51 Date of Discharge Aug 22, 2019 at 09:15 Discharge Date: Aug 22, 2019 Discharge Diagnosis Assessment: s/p right total knee replacement POD # 16 h/o DVT Spinal cord injury hx C4-C6 1989 Muscle spasms severe and incapacitating acute on chronic Neurogenic bladder Colon atony GERD Acute hyponatremia DVT PPx with ASA and Lovenox Plan: Lovenox transitioned to OAC for DVT PPx Wheelchair mobility along with walking as much as possible Pain control IRF protocol Bowel and bladder management Ortho appt after DC (1) Status post right knee replacement (2) History of spinal cord injury (3) Muscle spasm (4) Neurogenic bladder (5) Colon atonic (6) Muscle wasting (7) Hyponatremia (8) History of DVT (deep vein thrombosis) (9) DVT prophylaxis (10) Chronic GERD Discharge Summary Discharge Physical Examination Allergies: Coded Allergies: No Known Drug Allergies (Unverified , 10/06/09) Vitals & I&Os Vital Signs Date Time Temp Pulse Resp B/P (MAP) Pulse Ox O2 Delivery O2 Flow Rate FiO2 08/22/19 05:14 37.1 71 18 110/69 (83) 95 Room Air General Appearance: Alert, Oriented X3, Cooperative Respiratory: Clear to Auscultation Cardiovascular: Regular Rate Neuro: Normal Speech, Strength at 5/5 X4 Ext Psych/Mental Status: Mental Status NL Hospital Course Was the Problem List Reviewed?: Yes Patient had a very productive rehab course for 9 days after right TKQ by Dr Roland and had slow recovery due to severe residual deficits following spinal cord injury in 1989. Patient remained on Lovenox that transitioned to OAC at DC due to h/o DVT in 1989 and since he was so mobility restricted he was considered high risk. Pain control maintained with Baclofen and Percocet. BM regimen was maintained and SSE initiated for full evacuation due to h/o colon atony from spi nal cord injury hx. Overall he learned improved techniques from therapy and was able to DC home in improved condition with therapy HH. Labs (last 24 hrs) Laboratory Tests 08/14/19 05:20: White Blood Count 9.3, Red Blood Count 3.35L, Hemoglobin 11.0L, Hematocrit 33L, Mean Corpuscular Volume 99, Mean Corpuscular Hemoglobin 33, Mean Corpuscular Hemoglobin Concent 33, Red Cell Distribution Width 12.5, Platelet Count 282, Mean Platelet Volume 9.8, Neutrophils (%) (Auto) 74, Lymphocytes (%) (Auto) 14, Monocytes (%) (Auto) 12, Eosinophils (%) (Auto) 1, Basophils (%) (Auto) 0, Neutrophils # (Auto) 6.9, Lymphocytes # (Auto) 1.3, Monocytes # (Auto) 1.1H, Eosinophils # (Auto) 0.1, Basophils # (Auto) 0.0, Sodium Level 135, Potassium Level 4.5, Chloride Level 100, Carbon Dioxide Level 24, Anion Gap 11, Blood Urea Nitrogen 16, Creatinine 0.76, Estimat Glomerular Filtration Rate > 60, BUN/Creatinine Ratio 21, Glucose Level 97, Calcium Level 9.1, Corrected Calcium 9.7, Iron Level 42, Total Bilirubin 0.5, Aspartate Amino Transf (AST/SGOT) 27, Alanine Aminotransferase (ALT/SGPT) 33, Alkaline Phosphatase 43, Total Protein 6.6, Albumin 3.3 08/20/19 06:10: White Blood Count 9.0, Red Blood Count 3.58L, Hemoglobin 11.6L, Hematocrit 35L, Mean Corpuscular Volume 99, Mean Corpuscular Hemoglobin 32, Mean Corpuscular Hemoglobin Concent 33, Red Cell Distribution Width 12.8, Platelet Count 442H, Mean Platelet Volume 9.6, Neutrophils (%) (Auto) 75, Lymphocytes (%) (Auto) 17, Monocytes (%) (Auto) 7, Eosinophils (%) (Auto) 1, Basophils (%) (Auto) 0, Neutrophils # (Auto) 6.7, Lymphocytes # (Auto) 1.5, Monocytes # (Auto) 0.7, Eosinophils # (Auto) 0.1, Basophils # (Auto) 0.0, Sodium Level 138, Potassium Level 4.4, Chloride Level 103, Carbon Dioxide Level 25, Anion Gap 10, Blood Urea Nitrogen 13, Creatinine 0.76, Estimat Glomerular Filtration Rate > 60, BUN/Creatinine Ratio 17, Glucose Level 82, Calcium Level 9.3, Corrected Calcium 9.9, Total Bilirubin 0.3, Aspartate Amino Transf (AST/SGOT) 28, Alanine Aminotransferase (ALT/SGPT) 32, Alkaline Phosphatase 65, Total Protein 6.7, Albumin 3.3 Pending Labs Laboratory Tests 08/14/19 05:20: White Blood Count 9.3, Red Blood Count 3.35, Hemoglobin 11.0, Hematocrit 33, Mean Corpuscular Volume 99, Mean Corpuscular Hemoglobin 33, Mean Corpuscular Hemoglobin Concent 33, Red Cell Distribution Width 12.5, Platelet Count 282, Mean Platelet Volume 9.8, Neutrophils (%) (Auto) 74, Lymphocytes (%) (Auto) 14, Monocytes (%) (Auto) 12, Eosinophils (%) (Auto) 1, Basophils (%) (Auto) 0, Neutrophils # (Auto) 6.9, Lymphocytes # (Auto) 1.3, Monocytes # (Auto) 1.1, Eosinophils # (Auto) 0.1, Basophils # (Auto) 0.0, Sodium Level 135, Potassium Level 4.5, Chloride Level 100, Carbon Dioxide Level 24, Anion Gap 11, Blood Urea Nitrogen 16, Creatinine 0.76, Estimat Glomerular Filtration Rate > 60, BUN/Creatinine Ratio 21, Glucose Level 97, Calcium Level 9.1, Corrected Calcium 9.7, Iron Level 42, Total Bilirubin 0.5, Aspartate Amino Transf (AST/SGOT) 27, Alanine Aminotransferase (ALT/SGPT) 33, Alkaline Phosphatase 43, Total Protein 6.6, Albumin 3.3 08/20/19 06:10: White Blood Count 9.0, Red Blood Count 3.58, Hemoglobin 11.6, Hematocrit 35, Mean Corpuscular Volume 99, Mean Corpuscular Hemoglobin 32, Mean Corpuscular Hemoglobin Concent 33, Red Cell Distribution Width 12.8, Platelet Count 442, Mean Platelet Volume 9.6, Neutrophils (%) (Auto) 75, Lymphocytes (%) (Auto) 17, Monocytes (%) (Auto) 7, Eosinophils (%) (Auto) 1, Basophils (%) (Auto) 0, Neutrophils # (Auto) 6.7, Lymphocytes # (Auto) 1.5, Monocytes # (Auto) 0.7, Eosinophils # (Auto) 0.1, Basophils # (Auto) 0.0, Sodium Level 138, Potassium Level 4.4, Chloride Level 103, Carbon Dioxide Level 25, Anion Gap 10, Blood Urea Nitrogen 13, Creatinine 0.76, Estimat Glomerular Filtration Rate > 60, BUN/Creatinine Ratio 17, Glucose Level 82, Calcium Level 9.3, Corrected Calcium 9.9, Total Bilirubin 0.3, Aspartate Amino Transf (AST/SGOT) 28, Alanine Aminotransferase (ALT/SGPT) 32, Alkaline Phosphatase 65, Total Protein 6.7, Albumin 3.3 Discharge Home Medications: Active Scripts Active Polyethylene Glycol 3350 17 Gm Powd.pack 17 Gm PO BID Dok (Docusate Sodium) 100 Mg Capsule 100 Mg PO BID PRN Bisacodyl 10 Mg Supp.rect 10 Mg ME DAILY PRN Lactulose 20 Gm/30 Ml Solution 10 Gm PO BID PRN Gabapentin 300 Mg Capsule 300 Mg PO HS Percocet 5-325 mg Tablet (Oxycodone HCl/Acetaminophen) 1 Each Tablet 2 Tab PO Q4H PRN Eliquis (Apixaban) 2.5 Mg Tablet 2.5 Mg PO BID Baclofen 10 Mg Tablet 10 Mg PO TID Reported Meloxicam 15 Mg Tablet 15 Mg PO DAILY PRN Instructions to patient/family Please see electronic discharge instructions given to patient. Diagnosis/Problems Diagnosis/Problems (1) Status post right knee replacement (2) History of spinal cord injury (3) Muscle spasm (4) Neurogenic bladder (5) Colon atonic (6) Muscle wasting (7) Hyponatremia (8) History of DVT (deep vein thrombosis) (9) DVT prophylaxis (10) Chronic GERD Clinical Quality Measures DVT/VTE Risk/Contraindication: Risk Factor Score Per Nursin RFS Level Per Nursing on Admit: 4+=Very High HILARIO FAIRBANKS DO Aug 22, 2019 10:41
--- NOTE | 2019-08-22 11:24 | NUR ---
CM/SS DISCHARGE HHC: Finalized as planned with [facility] for PT/OT services. Patient left with his son this a.m. around 0900 for his ortho surgeon follow up. He was discharged as earlier noted and will return home after. Patient self-directed ramp building through his place of employment. His employer IT person came with permission last afternoon to retrieve his equipment, computer, printer, etc. Staff were alerted of the special permission and process for whatever escort they need to participate in. Unit RN was apprised of discharge early a.m. due to departure scheduled for 0900.
--- NOTE | 2019-08-22 14:17 | Therapy Team Discharge Summary ---
Therapy Discharge Summary Discharge Recommendations Date of Discharge Aug 22, 2019 at 09:15 Physical Therapy This patient was admitted to ARU from Acute hospital post eleective right TKR. Prior to surgery, he was mod indep with functional mobility and had his home and environment set up satisfactory for functional mobility. At admission to ARU, he was min assist with bed mobility, max assist to transfer to a stand and walked 30 ft with FWW with min assist. Treatment has focused on post TKR protocol with strength and ROM progression as well as functional mobility jennifer mckinney. At discharge, he was supervision with bed mobility for rolling and scooting but min assist in/out of bed; he was SBA with sit to stand. He was able to ambulate 120 ft with FWW with SB-CGA. His gait pattern was narrow MIGUELITO with intermittent scissoring, flexed knee right (leg length discrepancy and increased NM tone) with decreased heel strike/toe off and foot clearance. He has met all goals to a satisfactory level and pt is anxious to return home this date, noting he feels he can manage at home. He does plan to have [facility] PT to follow. Will DC from ARU this date. Occupational Therapy Decreased Activ Tolerance, Impaired I ADL's, Impaired Self-Care Skills PT Detention Goals Detention Goals PT Stunt Performer Goals Time Frame: Sep 04, 2019 Roll Left to Right (QC): 4 (SBA) Sit to Lying (QC): 4 (SBA) Lying-Sitting on Side/Bed(QC): 4 (SBA) Sit to Stand (QC): 3 (Cindy) Chair/Kme-vu-Tjfpm Xfer(QC): 4 (SBA) Car Transfer (QC): 3 (Cindy) Does the Patient Walk: Yes Walk 10 feet (QC): 4 (SBA) Walk 10ft-Uneven Surface(QC): 88 Walk 50ft with 2 Turns (QC): 4 (SBA) Walk 150 ft (QC): 4 (SBA) Does the Pt use WC or Scooter?: Yes Wheel 50 feet with 2 turns (QC: 6 (met) 1 Step (curb) (QC): 88 4 Steps (QC): 88 12 Steps (QC): 88 Picking up an Object (QC): 88 Goals met to a satisfactory level. OT Stunt Performer Goals Stunt Performer Goals Time Frame: Aug 28, 2019 Eating (QC): 6 Oral Hygiene (QC): 6 Shower/Bathe Self (QC): 5 Upper Body Dressing (QC): 6 Lower Body Dressing (QC): 6 On/Off Footwear (QC): 6 Toileting Hygiene (QC): 6 Toilet/Commode Transfer (QC): 3 (Cindy) Additional Goals: 1-Demonstrate ADL Tasks, 2-Verbalize Understanding, 3- ImproveStrength/Herman 1=Demonstrate adherence to instructed precautions during ADL tasks. 2=Patient will verbalize/demonstrate understanding of assistive devices/modifications for ADL. 3=Patient will improve strength/tolerance for activity to enable patient to perform ADL's. MADELINE AKHTAR PT Aug 22, 2019 14:17
--- NOTE | 2019-08-23 11:39 | Therapy Team Discharge Summary ---
Therapy Discharge Summary Discharge Recommendations Date of Discharge Aug 22, 2019 at 09:15 Therapy D/C Recommendations: Home w/ Family Support Occupational Therapy Pt. has been seen by occupational therapy to increase overall strength and independence. Pt. has made great progress, but continues to requires SBA/Set up in this environment, as opposed to his own. Pt. has worked on functional transfers, and different strategies for safe mobility with new knee replacement, and decreased mobility. Pt. is able to transfer with SBA/Min assist, depending on the surface he is transferring to. Pt. has had ramp built at front entrance, and has all other needed equipment at home. Pt. discharged home with spouse and grown children support. All needs met. Decreased Activ Tolerance, Impaired I ADL's, Impaired Self-Care Skills PT Product Management Analyst Goals Product Management Analyst Goals PT Product Management Analyst Goals Time Frame: Sep 04, 2019 Roll Left to Right (QC): 4 (SBA) Sit to Lying (QC): 4 (SBA) Lying-Sitting on Side/Bed(QC): 4 (SBA) Sit to Stand (QC): 3 (Cindy) Chair/Qlo-ji-Fgocw Xfer(QC): 4 (SBA) Car Transfer (QC): 3 (Cindy) Does the Patient Walk: Yes Walk 10 feet (QC): 4 (SBA) Walk 10ft-Uneven Surface(QC): 88 Walk 50ft with 2 Turns (QC): 4 (SBA) Walk 150 ft (QC): 4 (SBA) Does the Pt use WC or Scooter?: Yes Wheel 50 feet with 2 turns (QC: 6 (met) 1 Step (curb) (QC): 88 4 Steps (QC): 88 12 Steps (QC): 88 Picking up an Object (QC): 88 OT Product Management Analyst Goals Product Management Analyst Goals Time Frame: Aug 28, 2019 Eating (QC): 6 (met) Oral Hygiene (QC): 6 (met) Shower/Bathe Self (QC): 5 (not met- SBA) Upper Body Dressing (QC): 6 (not met) Lower Body Dressing (QC): 6 (not met) On/Off Footwear (QC): 6 (not met) Toileting Hygiene (QC): 6 (not met) Toilet/Commode Transfer (QC): 3 (Cindy) Additional Goals: 1-Demonstrate ADL Tasks, 2-Verbalize Understanding, 3- ImproveStrength/Herman 1=Demonstrate adherence to instructed precautions during ADL tasks. 2=Patient will verbalize/demonstrate understanding of assistive devices/modifications for ADL. 3=Patient will improve strength/tolerance for activity to enable patient to perform ADL's. GHAZALA COSTA OT Aug 23, 2019 11:39
== END 2019-08-22 09:15 | disposition home health service (06) | DRG 560 ==
PROVIDERS: ADMIT Internal Medicine; ATTEND Internal Medicine
DX: Z47.1 Aftercare following joint replacement surgery (principal); Z96.651 Presence of right artificial knee joint; M62.561 Muscle wasting and atrophy, not elsewhere classified, right lower leg; M62.838 Other muscle spasm; S14.109S Unspecified injury at unspecified level of cervical spinal cord, sequela; R29.6 Repeated falls; E87.1 Hypo-osmolality and hyponatremia; N31.9 Neuromuscular dysfunction of bladder, unspecified; K59.09 Other constipation; K59.8 Other specified functional intestinal disorders; K21.9 Gastro-esophageal reflux disease without esophagitis; Z86.718 Personal history of other venous thrombosis and embolism
CPT/HCPCS: 36415; 80053; 83540; 85025; 94664

== ENCOUNTER 2022-04-27 05:40 | Outpatient (CLI) | payer BC, OTHER ==
[~2022-04-27] VITALS: Ht 168 cm; Wt 90.9 kg
[~2022-04-27 05:40] MED LIST changes: +APIX2.5T PO; +ASPI-999 PO; +BACL10TA PO; +BISA10SU8 PR; +DOCU-239 PO; +GABA-488 PO; +LACT20SO2 PO; +MELO15TA39 PO; +NAPR220C11 PO; +OXYC1TAB87 PO; +POLY17PO54 PO
== END 2022-04-28 10:22 ==
LOC: PREOP 05:40
PROVIDERS: ATTEND Surgery
DX: Z01.818 Encounter for other preprocedural examination (principal); Z12.11 Encounter for screening for malignant neoplasm of colon

== ENCOUNTER 2022-05-04 11:29 | Day surgery (SDC) | payer BC, OTHER ==
[~2022-05-04] VITALS: Ht 168 cm; Wt 90.9 kg
[2022-05-04] MEDS ORDERED: LACTATED RINGERS 1,000 ML IV STA (11:32)
--- NOTE | 2022-05-04 11:43 | Progress Note-Pre Operative ---
Pre-Operative Progress Note Date of Available H&P: Apr 05, 2022 Date H&P Reviewed: May 04, 2022 Time H&P Reviewed: 11:41 History & Physical: H&P Reviewed, Patient Examed, No changes noted Pre-Operative Diagnosis: Epigastric pain, screening colonoscopy KELSEY BRADSHAW DO May 04, 2022 11:43
[2022-05-04] MEDS ORDERED: HURRICAINE EXT TUBE (BENZOCAINE) XX PRN (11:45)
[2022-05-04 11:50] VITALS: BP 132/100
[2022-05-04] MEDS ORDERED: PROPOFOL INJECTION 50 ML IV ONE (12:15)
[2022-05-04] MEDS ORDERED: PANT40TA2 PO (12:48)
--- NOTE | 2022-05-04 12:49 | Discharge Inst-Simple/Standard ---
Discharge Inst-Standard Patient Instructions/Follow Up Plan of Care/Instructions/FU: Please follow-up with Dr. Lees in 2 weeks in outpatient clinic Activity as Tolerated: Yes Discharge Diet: Regular Diet KELSEY LEES DO May 04, 2022 12:49
--- NOTE | 2022-05-04 12:54 | Anesthesia-General Post-Op ---
MAC Patient Condition Mental Status/LOC: Same as Preop Cardiovascular: Satisfactory Nausea/Vomiting: Absent Respiratory: Satisfactory Pain: Controlled Complications: Absent Post Op Complications Complications None Follow Up Care/Instructions Patient Instructions None needed. Anesthesiology Discharge Order Discharge Order Patient is doing well, no complaints, stable vital signs, no apparent adverse anesthesia problems. No complications reported per nursing. SONJA ISIDRO CRNA May 04, 2022 12:54
[2022-05-04 12:55] VITALS: BP 115/64
[2022-05-04 13:00] VITALS: BP 127/60
[2022-05-04 13:30] VITALS: BP 129/74
[2022-05-04 14:05] VITALS: BP 129/74
--- NOTE | 2022-05-04 22:24 | OPERATIVE REPORT ---
DATE OF SERVICE: 05/04/2022 PREOPERATIVE DIAGNOSES: Epigastric abdominal pain, screening colonoscopy. POSTOPERATIVE DIAGNOSES: Gastritis, colon polyps. PROCEDURES: EGD with biopsy, colonoscopy with hot biopsy polypectomy x3. SURGEON: Kelsey Lees DO. 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 ESTIMATED BLOOD LOSS: None. COMPLICATIONS: None. INDICATIONS: The patient is a 62-year-old male with epigastric abdominal pain and anemia, screening colonoscopy. He understands risks and benefits of procedure and wished to proceed. Consent was signed in chart. DESCRIPTION OF PROCEDURE: The patient was taken to the endoscopy suite, placed in left lateral recumbent position. Timeout was performed. Scope was inserted in the mouth, down the esophagus, stomach and duodenum without difficulty. There were no polyps, masses, ulcerations in the duodenum. Scope was slowly retracted back to stomach where it was further insufflated. Gastritis was apparent throughout the body and antrum of the stomach. Biopsy of the antrum and body were obtained. Scope was retroflexed, noting no other pathology. Scope was returned to its normal position, slowly withdrawn in the distal esophagus. Biopsy of GE junction was obtained. No polyps, masses or ulcerations. Scope was then slowly retracted back until completely removed, noting no other pathology. Digital rectal exam was performed. No palpable pulses, masses or ulcerations. Scope was inserted in the rectum and advanced all the way to the cecum with minimal difficulty. Prep was adequate. Scope was then slowly retracted back. No polyps, masses, ulcerations within the cecum, ascending colon. In the transverse colon, a polyp was present, which hot biopsy polypectomy was performed. Scope was continuously retracted back through the descending colon where another small polyp was present, which hot biopsy polypectomy was performed. Scope was continuously retracted back. There were no polyps, mass, ulcerations in the sigmoid colon. Once in the rectum, a small polyp was present, which hot biopsy polypectomy was performed. Scope was retroflexed, noting no other pathology. Scope was returned to its normal position, slowly withdrawn until completely removed. The patient tolerated the procedure well without any complications, taken to recovery room in stable condition. RECOMMENDATIONS: The patient will need repeat colonoscopy in 5 years. Any issues before that be seen at that time. The patient will be started on Protonix 40 mg daily and see if this helps his symptoms. We will also consider discontinuing the meloxicam. The patient will follow up in 2 weeks with pathology results. Job ID: [id number] DocumentID: [id number] Dictated Date: 05/04/2022 12:52:22 Survey Field Technician Date: 05/04/2022 22:22:00 Dictated By: KELSEY LEES DO
== END 2022-05-04 14:05 | disposition home or self-care (01) ==
LOC: ENDO 11:29
PROVIDERS: ATTEND Surgery
DX: Z12.11 Encounter for screening for malignant neoplasm of colon (principal); D12.3 Benign neoplasm of transverse colon; D12.8 Benign neoplasm of rectum; K63.5 Polyp of colon; K29.70 Gastritis, unspecified, without bleeding; E66.9 Obesity, unspecified; D64.9 Anemia, unspecified; Z68.32 Body mass index [BMI] 32.0-32.9, adult
CPT/HCPCS: 88305